=== PATIENT | female | born 1955 | race American Indian/Alaskan Native ===

== ENCOUNTER 2017-06-12 09:00 | Emergency (ER) | payer MEDICARE ==
--- NOTE | 2017-06-12 10:58 | Emergency Department Report ---
ED Shortness of Breath HPI - General Chief Complaint: Dyspnea/Respdistress Stated Complaint: DESIREE Time Seen by Provider: 06/12/17 10:46 Source: patient, EMS Mode of arrival: Stretcher Limitations: No Limitations - History of Present Illness MD Complaint: shortness of breath, cough, chest pain -: Gradual, Last night Severity: moderate Quality: other (chest tightness) Consistency: constant Improves With: other (a breathing treatment and a steroid shot given in the ambulance 1 hour proir to admission) Worsens With: coughing Known History Of: COPD (on 2 L of O2 21/12), other (She is an active smoker) Context: smoke/fume exposure Associated Symptoms: chest pain, cough, sputum production - Related Data Home Oxygen Therapy: Yes Home Oxygen Amount: 2 Liters Home Medications Medication Instructions Recorded Confirmed Last Taken Fluticasone/Salmeterol [Advair 1 inh INHALATION BID 06/14/13 11/28/13 11/28/13 Diskus 500-50 mcg] Prednisone 10 mg PO DAILY 06/14/13 11/29/13 11/29/13 ALBUTEROL NEB's [Proventil 0.083% 3 ml INHALATION QID 10/17/13 11/29/13 11/29/13 NEBS] Diltiazem Cd [Cardizem CD] 1 cap PO DAILY 10/17/13 11/29/13 11/29/13 Mv,Rehan,Min/Iron/Folic Acid/Lut 1 tab PO DAILY 10/17/13 11/28/13 11/28/13 [Complete Multi Tablet] Potassium Gluconate 1 tab PO DAILY 10/17/13 11/29/13 11/28/13 Triamterene/Hydrochlorothiazid 1 tab PO DAILY 10/17/13 11/29/13 11/29/13 [Triamterene-Hctz 37.5-25 mg] amLODIPine [Norvasc] 1 tab PO DAILY 10/17/13 11/29/13 11/29/13 Previous Rx's Medication Instructions Recorded Last Taken Type Ferrous Gluconate [Fergon 325 MG 325 mg PO TID #90 tablet 06/15/13 11/28/13 Rx tab] methylPREDNISolone [Medrol Dose 8 mg PO QAM #1 tab.ds.pk 06/15/13 11/28/13 Rx Golden] ALBUTEROL Inhaler [ProAir HFA 2 puff INHALATION Q4HR PRN #1 inha 07/30/15 Unknown Rx Inhaler] Prednisone [predniSONE 10 mg 10 mg PO .TAPER #1 tab.ds.pk 07/30/15 Unknown Rx (6-Day Pack, 21 Tabs)] Amoxicillin/K Clav Tab [Augmentin 1 tab PO Q12HR 10 Days tab 06/12/17 Unknown Rx 875 mg] Allergies Allergy/AdvReac Type Severity Reaction Status Date / Time No Known Allergies Allergy Verified 11/27/13 14:11 ED Review of Systems ROS: Stated complaint: DESIREE Other details as noted in HPI Constitutional: denies: chills, fever Eyes: denies: eye pain, eye discharge, vision change ENT: denies: ear pain, throat pain Respiratory: see HPI, cough, shortness of breath, wheezing Cardiovascular: chest pain. denies: palpitations, edema Endocrine: no symptoms reported Gastrointestinal: denies: abdominal pain, nausea, diarrhea Genitourinary: denies: urgency, dysuria, discharge Musculoskeletal: denies: back pain, joint swelling, arthralgia Skin: denies: rash, lesions Neurological: denies: headache, weakness, paresthesias Psychiatric: denies: anxiety, depression Hematological/Lymphatic: denies: easy bleeding, easy bruising ED Past Medical Hx - Past Medical History Hx Hypertension: Yes (AMLODIPINE) Hx Congestive Heart Failure: (HX OF PERICARDIAL EFFUSION) Hx GERD: Yes Hx Liver Disease: Yes (Increased Liver enzymes) Hx Renal Disease: No Hx Arthritis: Yes Hx Asthma: Yes Hx COPD: Yes (USES 02 PRN,PREDNISONE,INHALER USE) - Social History Smoking Status: Current Every Day Smoker Substance Use Type: None - Medications Home Medications: Home Medications Medication Instructions Recorded Confirmed Last Taken Type Fluticasone/Salmeterol [Advair 1 inh INHALATION BID 06/14/13 11/28/13 11/28/13 History Diskus 500-50 mcg] Prednisone 10 mg PO DAILY 06/14/13 11/29/13 11/29/13 History Ferrous Gluconate [Fergon 325 MG 325 mg PO TID #90 tablet 06/15/13 11/28/1306/13 Rx tab] methylPREDNISolone [Medrol Dose 8 mg PO QAM #1 tab.ds.pk 06/15/13 11/28/1311/28 Rx Golden] ALBUTEROL NEB's [Proventil 0.083% 3 ml INHALATION QID 10/17/13 11/29/13 History NEBS] Diltiazem Cd [Cardizem CD] 1 cap PO DAILY 10/17/13 11/29/13 11/29/13 History Mv,Rehan,Min/Iron/Folic Acid/Lut 1 tab PO DAILY 10/17/13 11/28/13 11/28/13 History [Complete Multi Tablet] Potassium Gluconate 1 tab PO DAILY 10/17/13 11/29/13 11/28/13 History Triamterene/Hydrochlorothiazid 1 tab PO DAILY 10/17/13 11/29/13 11/29/13 History [Triamterene-Hctz 37.5-25 mg] amLODIPine [Norvasc] 1 tab PO DAILY 10/17/13 11/29/13 11/29/13 History ALBUTEROL Inhaler [ProAir HFA 2 puff INHALATION Q4HR PRN #1 inha 07/30/15 Unknown Rx Inhaler] Prednisone [predniSONE 10 mg 10 mg PO .TAPER #1 tab.ds.pk 07/30/15 Unknown Rx (6-Day Pack, 21 Tabs)] Amoxicillin/K Clav Tab [Augmentin 1 tab PO Q12HR 10 Days tab 06/12/17 Unknown Rx 875 mg] ED Physical Exam - General Limitations: No Limitations General appearance: alert, in no apparent distress - Head Head exam: Present: atraumatic, normocephalic - Eye Eye exam: Present: normal appearance - ENT ENT exam: Present: mucous membranes moist - Neck Neck exam: Present: normal inspection - Respiratory Respiratory exam: Present: wheezes (Diffuse B/L), decreased breath sounds (at bases), prolonged expiratory. Absent: respiratory distress - Cardiovascular Cardiovascular Exam: Present: normal rhythm. Absent: regular rate (mild tachycardia), systolic murmur, diastolic murmur, rubs, gallop - GI/Abdominal GI/Abdominal exam: Present: soft, normal bowel sounds - Extremities Exam Extremities exam: Present: normal inspection - Back Exam Back exam: Present: normal inspection - Neurological Exam Neurological exam: Present: alert, oriented X3 - Psychiatric Psychiatric exam: Present: normal affect, normal mood - Skin Skin exam: Present: warm, dry, intact, normal color. Absent: rash ED Course Vital Signs 06/12/17 06/12/17 06/12/17 10:34 10:46 11:00 Temperature 98.1 F Pulse Rate 108 H 122 H 87 Pulse Rate [ Bilateral Upper Lobe] Respiratory 18 20 23 Rate Respiratory Rate [Bilateral Upper Lobe] Blood Pressure 125/62 113/59 112/56 O2 Sat by Pulse 96 94 93 Oximetry 06/12/17 06/12/17 11:27 11:33 Temperature Pulse Rate Pulse Rate [ 94 H 95 H Bilateral Upper Lobe] Respiratory Rate Respiratory 20 20 Rate [Bilateral Upper Lobe] Blood Pressure O2 Sat by Pulse Oximetry - Reevaluation(s) Reevaluation #1: 06/12/17 11:53 Reports improvement on breathing treatment. I informed her that I will prescribe Levaquin but she requested a meal and an AB that has Amoxicillin in it. Critical care attestation.: If time is entered above; I have spent that time in minutes in the direct care of this critically ill patient, excluding procedure time. ED Disposition Clinical Impression: COPD exacerbation Disposition: DC-01 TO HOME OR SELFCARE Is pt being admited?: No Does the pt Need Aspirin: No Condition: Good Instructions: Chronic Obstructive Pulmonary Disease (ED) Additional Instructions: Smoking Cessation Prescriptions: Amoxicillin/K Clav Tab [Augmentin 875 mg] 1 tab PO Q12HR 10 Days tab Referrals: HILARIO SALMON MD [Primary Care Provider] - 3-5 Days Time of Disposition: 11:58
[2017-06-12] MEDS ORDERED: PROVENTIL IH ONE (11:13)
[2017-06-12] MEDS ORDERED: ATROVENT IH ONE (11:13)
--- NOTE | 2017-06-12 11:50 | XRay Report ---
AP CHEST :06/12/17 09:00:00 CLINICAL: Difficulty breathing. COMPARISON:07/30/15 FINDINGS: Normal heart and pulmonary vasculature. The lungs are normally expanded and clear. The bones and soft tissues are normal. IMPRESSION: Normal chest.
[2017-06-12 12:36] VITALS: BP 117/62
== END 2017-06-12 13:16 | disposition home or self-care (01) ==
LOC: ED 09:00
DX: J44.1 Chronic obstructive pulmonary disease with (acute) exacerbation (principal); I10 Essential (primary) hypertension; K21.9 Gastro-esophageal reflux disease without esophagitis; M19.90 Unspecified osteoarthritis, unspecified site; F17.200 Nicotine dependence, unspecified, uncomplicated
CPT/HCPCS: 71045; 94640; 99284

== ENCOUNTER 2018-07-26 19:09 | Inpatient (IN) | payer MEDICARE ==
[2018-07-26] MEDS ORDERED: PROVENTIL IH ONE ×2 (19:31→20:38)
[2018-07-26] MEDS ORDERED: ADRENALINE P/F SUB-Q ONE (19:31)
[2018-07-26] MEDS ORDERED: ATROVENT IH ONE ×2 (19:31→20:38)
[2018-07-26] MEDS ORDERED: MAGNESIUM SULFATE 2GM/50ML 2 GM/50 ML BAG IV ONE (19:31)
[2018-07-26] MEDS ORDERED: NACL 0.9% 500 ML 500 ML IV ONE ×2 (19:31→20:36)
--- NOTE | 2018-07-26 19:33 | Emergency Department Report ---
ED Shortness of Breath HPI - General Chief Complaint: Dyspnea/Respdistress Stated Complaint: DIFFICULTY BREATHING Time Seen by Provider: 07/26/18 19:24 Source: EMS (ems notes not available at time of chart dictation) Mode of arrival: Stretcher Limitations: Physical Limitation - History of Present Illness Initial Comments: This is a 63-year-old female. Past medical history includes tobacco dependency, chronic hypoxic respiratory failure, end-stage COPD, hypertension, on 2 L of home oxygen. The patient is brought to the hospital by EMS for shortness of breath. Apparently, EMS given albuterol, Atrovent, steroids, magnesium and IV diuretics in the field. Upon arrival to the ER, the patient had markedly labored breathing. She indicated central chest wall pain. She denied DVT, pulmonary embolus risk factors. She was given additional albuterol, Atrovent, magnesium, fluids, BiPAP, and subcutaneous epinephrine, which moderately improved her work of breathing. She denied hematemesis, bright red blood per rectum. Of note, patient was admitted to the medical service in May 2018, for similar presentation, was found to have a negative CT scan of the chest for pulmonary embolus, and progressive lung disease. MD Complaint: shortness of breath, cough, chest pain, "asthma attack" -: Gradual, hour(s) Severity: moderate Quality: aching Consistency: constant Improves With: oxygen, rest, bronchodilators, upright position Worsens With: lying flat, exertion Known History Of: COPD - Related Data Home Medications Medication Instructions Recorded Confirmed Last Taken ALBUTEROL NEB's [Proventil 0.083% 3 ml INHALATION QID 10/17/13 06/18/17 06/14/17 NEBS] Mv,Rehan,Min/Iron/Folic Acid/Lut 1 tab PO DAILY 10/17/13 06/18/17 06/01/17 [Complete Multi Tablet] Previous Rx's Medication Instructions Recorded Last Taken Type Ferrous Gluconate [Fergon 325 MG 325 mg PO TID #90 tablet 06/15/13 06/01/17 Rx tab] ALBUTEROL Inhaler (OR & NICU) 2 puff INHALATION Q4HR PRN #1 inha 06/17/17 Unknown Rx [ProAir HFA Inhaler] ALPRAZolam [Xanax TAB] 0.25 mg PO Q12HR PRN #30 day 06/17/17 Unknown Rx Acetaminophen [Acetaminophen TAB] 650 mg PO Q6H PRN #30 tablet 06/17/17 Unknown Rx Arformoterol Nebu [Brovana Nebu] 15 mcg IH Q12HRT #30 day 06/17/17 Unknown Rx Budesonide [Pulmicort Respules] 0.5 mg IH Q12HRT #30 day 06/17/17 Unknown Rx Ipratropium/Albuterol Sulfate 1 ampul IH Q4HRT PRN #30 day 06/17/17 Unknown Rx [DUONEB *Not for PRN Use*] Montelukast [Singulair] 10 mg PO QHS #30 tablet 06/17/17 Unknown Rx Nicotine [Habitrol] 21 mg TD Q24H #14 patch 06/17/17 Unknown Rx Oseltamivir [Tamiflu] 75 mg PO BID #2 day 06/17/17 Unknown Rx Polyethylene Glycol 3350 [Miralax 17 gm PO QDAY PRN #15 day 06/17/17 Unknown Rx 3350] buPROPion XL [Wellbutrin XL] 150 mg PO QDAY #30 day 06/17/17 Unknown Rx levoFLOXacin [Levaquin TAB] 750 mg PO DAILY #3 day 06/17/17 Unknown Rx oxyCODONE /ACETAMINOPHEN [Percocet 1 tab PO Q6H PRN #20 tablet 06/17/17 Unknown Rx 5/325 mg] predniSONE [Deltasone] 1 dose PO DAILY #16 day 06/17/17 Unknown Rx ALBUTEROL NEB's [Proventil 0.083% 2.5 mg IH Q4HRT PRN #30 day 06/18/17 Unknown Rx NEBS] Metoprolol Xl [Metoprolol 25 mg PO QDAY #30 tablet 06/18/17 Unknown Rx SUCCINATE ER TAB] Nystatin [Nystatin SUSP] 5 ml PO QID #14 day 06/18/17 Unknown Rx dilTIAZem CD [Cardizem CD] 120 mg PO QDAY #30 capsule 06/18/17 Unknown Rx Allergies Allergy/AdvReac Type Severity Reaction Status Date / Time No Known Allergies Allergy Verified 11/27/13 14:11 ED Review of Systems ROS: Stated complaint: DIFFICULTY BREATHING Other details as noted in HPI Constitutional: malaise, weakness. denies: fever Eyes: denies: eye discharge ENT: congestion Respiratory: cough, shortness of breath, wheezing Cardiovascular: chest pain Gastrointestinal: denies: abdominal pain, hematemesis, melena Genitourinary: denies: dysuria Musculoskeletal: arthralgia Skin: denies: lesions Neurological: weakness Psychiatric: anxiety ED Past Medical Hx - Past Medical History Previous Medical History?: Yes Hx Hypertension: Yes Hx Congestive Heart Failure: Yes Hx GERD: Yes Hx Liver Disease: Yes (Increased Liver enzymes) Hx Renal Disease: No Hx Arthritis: Yes Hx Asthma: Yes Hx COPD: Yes - Surgical History Past Surgical History?: No - Social History Smoking Status: Former Smoker Substance Use Type: Alcohol - Medications Home Medications: Home Medications Medication Instructions Recorded Confirmed Last Taken Type Ferrous Gluconate [Fergon 325 MG 325 mg PO TID #90 tablet 06/15/13 06/18/17 06/01/17 Rx tab] ALBUTEROL NEB's [Proventil 0.083% 3 ml INHALATION QID 10/17/13 06/18/17 06/14/17 History NEBS] Mv,Rehan,Min/Iron/Folic Acid/Lut 1 tab PO DAILY 10/17/13 06/18/17 06/01/17 History [Complete Multi Tablet] ALBUTEROL Inhaler (OR & NICU) 2 puff INHALATION Q4HR PRN #1 inha 06/17/17 Unknown Rx [ProAir HFA Inhaler] ALPRAZolam [Xanax TAB] 0.25 mg PO Q12HR PRN #30 day 06/17/17 Unknown Rx Acetaminophen [Acetaminophen TAB] 650 mg PO Q6H PRN #30 tablet 06/17/17 Unknown Rx Arformoterol Nebu [Brovana Nebu] 15 mcg IH Q12HRT #30 day 06/17/17 Unknown Rx Budesonide [Pulmicort Respules] 0.5 mg IH Q12HRT #30 day 06/17/17 Unknown Rx Ipratropium/Albuterol Sulfate 1 ampul IH Q4HRT PRN #30 day 06/17/17 Unknown Rx [DUONEB *Not for PRN Use*] Montelukast [Singulair] 10 mg PO QHS #30 tablet 06/17/17 Unknown Rx Nicotine [Habitrol] 21 mg TD Q24H #14 patch 06/17/17 Unknown Rx Oseltamivir [Tamiflu] 75 mg PO BID #2 day 06/17/17 Unknown Rx Polyethylene Glycol 3350 [Miralax 17 gm PO QDAY PRN #15 day 06/17/17 Unknown Rx 3350] buPROPion XL [Wellbutrin XL] 150 mg PO QDAY #30 day 06/17/17 Unknown Rx levoFLOXacin [Levaquin TAB] 750 mg PO DAILY #3 day 06/17/17 Unknown Rx oxyCODONE /ACETAMINOPHEN [Percocet 1 tab PO Q6H PRN #20 tablet 06/17/17 Unknown Rx 5/325 mg] predniSONE [Deltasone] 1 dose PO DAILY #16 day 06/17/17 Unknown Rx ALBUTEROL NEB's [Proventil 0.083% 2.5 mg IH Q4HRT PRN #30 day 06/18/17 Unknown Rx NEBS] Metoprolol Xl [Metoprolol 25 mg PO QDAY #30 tablet 06/18/17 Unknown Rx SUCCINATE ER TAB] Nystatin [Nystatin SUSP] 5 ml PO QID #14 day 06/18/17 Unknown Rx dilTIAZem CD [Cardizem CD] 120 mg PO QDAY #30 capsule 06/18/17 Unknown Rx ED Physical Exam - General Limitations: Physical Limitation General appearance: alert, anxious, in distress, obese - Head Head exam: Present: atraumatic, normocephalic - Eye Eye exam: Present: normal appearance, EOMI. Absent: nystagmus - ENT ENT exam: Present: normal exam, normal orophraynx, mucous membranes moist, normal external ear exam - Neck Neck exam: Present: normal inspection, full ROM. Absent: tenderness, meningismus - Respiratory Respiratory exam: Present: respiratory distress, wheezes, rhonchi, chest wall tenderness - Cardiovascular Cardiovascular Exam: Present: normal rhythm, tachycardia, normal heart sounds. Absent: systolic murmur, diastolic murmur, rubs, gallop - GI/Abdominal GI/Abdominal exam: Present: soft. Absent: distended, tenderness, guarding, rebound, rigid, pulsatile mass - Extremities Exam Extremities exam: Present: normal inspection, full ROM, other (2+ pulses noted in the bilateral upper, lower extremities. Compartments soft. No long bony tenderness. The pelvis is stable.). Absent: pedal edema, joint swelling, calf tenderness - Back Exam Back exam: Present: normal inspection, full ROM. Absent: tenderness, CVA tenderness (R), paraspinal tenderness, vertebral tenderness - Neurological Exam Neurological exam: Present: alert, other (Extraocular movements intact. Tongue midline. No facial droop. Facial sensation intact to light touch in the V1, V2, V3 distribution bilaterally. 5 and 5 strength in 4 extremities.. Sensation is intact to light touch in 4 extremities.). Absent: motor sensory deficit - Psychiatric Psychiatric exam: Present: anxious - Skin Skin exam: Present: warm, dry, intact, normal color. Absent: rash ED Course Vital Signs 07/26/18 07/26/18 07/26/18 19:21 19:30 19:35 Temperature 98.6 F Pulse Rate 99 H 102 H Pulse Rate [ 102 H Anterior Bilateral Throughout] Respiratory 20 25 H Rate Respiratory 25 H Rate [Anterior Bilateral Throughout] Blood Pressure 174/85 Blood Pressure 174/85 [Right] O2 Sat by Pulse 100 95 Oximetry 07/26/18 07/26/18 07/26/18 20:40 20:45 20:58 Temperature Pulse Rate 91 H Pulse Rate [ 90 91 H Anterior Bilateral Throughout] Respiratory 21 Rate Respiratory 21 21 Rate [Anterior Bilateral Throughout] Blood Pressure Blood Pressure [Right] O2 Sat by Pulse 100 Oximetry 07/26/18 21:29 Temperature Pulse Rate Pulse Rate [ 91 H Anterior Bilateral Throughout] Respiratory Rate Respiratory 21 Rate [Anterior Bilateral Throughout] Blood Pressure Blood Pressure [Right] O2 Sat by Pulse Oximetry - Reevaluation(s) Reevaluation #1: 07/26/18 22:55 Work of breathing improved. CT scan of the chest suggests pneumonia. Patient has white count of 14, heart rate greater than 90, respiratory acidosis with hypercarbic retention, suggestive of systemic inflammatory response syndrome, sepsis, although not septic shock. Work of breathing improved on BiPAP therapy. Additional IV fluids, blood cultures, lactic acid, Levaquin antibiotic ordered. The Hospital physician, Dr. Mcdaniel to admit the patient to the medical service. ED Medical Decision Making - Lab Data Result diagrams: 07/26/18 19:41 07/26/18 19:41 Vital Signs 07/26/18 19:21 Temperature 98.6 F Pulse Rate 99 H Respiratory 20 Rate Blood Pressure 174/85 Blood Pressure 174/85 [Right] O2 Sat by Pulse 100 Oximetry Lab Results 07/26/18 07/26/18 07/26/18 Range/Units 19:41 19:41 19:41 WBC 13.0 H (4.5-11.0) K/mm3 RBC 4.24 (3.65-5.03) M/mm3 Hgb 12.2 (10.1-14.3) gm/dl Hct 37.2 (30.3-42.9) % MCV 88 (79-97) fl MCH 29 (28-32) pg MCHC 33 (30-34) % RDW 15.1 (13.2-15.2) % Plt Count 242 (140-440) K/mm3 Lymph % (Auto) 7.5 L (13.4-35.0) % Edgar % (Auto) 6.5 (0.0-7.3) % Eos % (Auto) 0.1 (0.0-4.3) % Baso % (Auto) 0.4 (0.0-1.8) % Lymph # 1.0 L (1.2-5.4) K/mm3 Edgar # 0.8 (0.0-0.8) K/mm3 Eos # 0.0 (0.0-0.4) K/mm3 Baso # 0.0 (0.0-0.1) K/mm3 Seg Neutrophils % 85.5 H (40.0-70.0) % Seg Neutrophils # 11.1 H (1.8-7.7) K/mm3 D-Dimer 290.28 H (0-234) ng/mlDDU Sodium 139 (137-145) mmol/L Potassium 4.7 (3.6-5.0) mmol/L Chloride 91.9 L (98-107) mmol/L Carbon Dioxide 35 H (22-30) mmol/L Anion Gap 17 mmol/L BUN 23 H (7-17) mg/dL Creatinine 1.1 (0.7-1.2) mg/dL Estimated GFR > 60 ml/min BUN/Creatinine Ratio 21 % Glucose 179 H (65-100) mg/dL Calcium 10.3 H (8.4-10.2) mg/dL Magnesium 2.90 H (1.7-2.3) mg/dL Total Creatine Kinase 134 (30-135) units/L Troponin T < 0.010 (0.00-0.029) ng/mL - EKG Data -: EKG Interpreted by Me Rate: tachycardia - EKG Data 07/26/18 20:43 Sinus tachycardia, 100 bpm, right bundle branch block, QTC 423 ms, OR interval within normal limits, limited by motion artifact, appears unchanged from prior EKG from 06/17/2017. - Radiology Data Radiology results: pending - Medical Decision Making Differential diagnosis, including not limited to: COPD exacerbation, pneumonia, costochondritis, acute coronary syndrome, pulmonary embolus Assessment and plan: 63-year-old female with chronic hypoxic respiratory failure, with evidence of mild hypercarbic respiratory failure, requiring BiPAP therapy, subcutaneous epinephrine, multiple rounds of albuterol, Atrovent, magnesium, doubt pulmonary embolus given history, but given positive d-dimer, we will obtain CT scan of the chest to exclude pulmonary embolus. Patient will be admitted to the medical service once her initial diagnostics have resulted. Critical Care Time: Yes Critical care time in (mins) excluding proc time.: 35 Critical care attestation.: If time is entered above; I have spent that time in minutes in the direct care of this critically ill patient, excluding procedure time. ED Disposition Clinical Impression: COPD exacerbation, Acute and chronic respiratory failure, SIRS (systemic inflammatory response syndrome) Disposition: 09 OP ADMIT IP TO THIS HOSP Is pt being admited?: Yes Condition: Good Instructions: Chronic Obstructive Pulmonary Disease (ED) Referrals: DAHIANA ANGUIANO [Other] - 3-5 Days
[2018-07-26 19:54] LABS: Basophils % (Auto) 0.4 % (0.0-1.8); Eosinophils % (Auto) 0.1 % (0.0-4.3); Hematocrit 37.2 % (30.3-42.9); Hemoglobin 12.2 gm/dl (10.1-14.3); Lymphocytes % (Auto) 7.5 % (13.4-35.0); Mean Corpuscular HGB Conc 33 % (30-34); Mean Corpuscular Volume 88 fl (79-97); Monocytes # (Auto) 0.8 K/mm3 (0.0-0.8); Monocytes % (Auto) 6.5 % (0.0-7.3); Platelet Count 242 K/mm3 (140-440); Red Blood Count 4.24 M/mm3 (3.65-5.03); Red Cell Distribution Width 15.1 % (13.2-15.2)
[2018-07-26 20:27] LABS: BUN/Creatinine Ratio 21; Blood Urea Nitrogen 23 mg/dL (7-17); Calcium 10.3 mg/dL (8.4-10.2); Hemolysis Index 29
[2018-07-26] MEDS ORDERED: SUBLIMAZE IV ONE (20:38)
--- NOTE | 2018-07-26 21:10 | XRay Report ---
FINAL REPORT EXAM: XR CHEST 1V AP HISTORY: dyspnea TECHNIQUE: AP portable view of the chest. PRIORS: 06/13/2017 FINDINGS: The cardiomediastinal silhouette appears normal. The lungs are clear. The bones and soft tissues are unremarkable. IMPRESSION: No evidence of acute cardiopulmonary disease.
--- NOTE | 2018-07-26 22:33 | Cat Scan Report ---
FINAL REPORT EXAM: CT ANGIO CHEST HISTORY: cp dyspnea copd TECHNIQUE: High-resolution helical axial images were obtained of the chest during intravenous admini stration of iodinated contrast. Images are reconstructed in the sagittal and coronal planes. PRIORS: 06/03/2017 FINDINGS: There is no evidence of pulmonary embolism, the pulmonary arteries opacify normally. The heart and thoracic aorta appear normal. There is a patchy right upper lobe reticulonodular infiltrate Images through the upper abdomen are show a stable 1.8 cm enhancing lesion in the peripheral liver mo st consistent with a hemangioma. The bones are unremarkable. IMPRESSION: 1. No evidence of pulmonary embolism. 2. Patchy right upper lobe reticulonodular infiltrate consistent with pneumonia
[2018-07-26] MEDS ORDERED: NACL 0.9% 1000 ML IV ONE (22:54)
[2018-07-26] MEDS ORDERED: LEVAQUIN 750MG/150ML 750 MG/150 ML BAG IV ONE (23:00)
[2018-07-26] MEDS ORDERED: NACL 0.9% 1000 ML 1,000 ML IV SCH (23:45)
[2018-07-26] MEDS ORDERED: TYLENOL PO PRN (23:46)
[2018-07-26] MEDS ORDERED: NORCO 5/325 PO PRN (23:46)
[2018-07-26] MEDS ORDERED: ZOFRAN IV PRN (23:46)
[2018-07-27] MEDS: SOLU-Medrol IV SCH ×4 (00:56→20:45)
[2018-07-27] MEDS ORDERED: NACL 0.9% 1000 ML 2,000 ML ONE (00:56)
[2018-07-27] MEDS ORDERED: LEVAQUIN 750MG/150ML 750 MG/150 ML BAG IV ONE (00:56)
[2018-07-27] MEDS ORDERED: SOLU-Medrol ONE (00:59)
--- NOTE | 2018-07-27 01:04 | History and Physical Report ---
History of Present Illness Date of examination: 07/26/18 Date of admission: 07/26/18 23:46 Chief complaint: "I couldn't breathe" History of present illness: Patient is a 63-year-old -[place] female with history of asthma and COPD who presented to the ED on account of 1 day history of worsening shortness of breath. She has associated dry cough, pleuritic chest pain, diaphoresis, runny nose, headaches and lightheadedness. She denies palpitations, sore throat, fever, chills, leg swelling, orthopnea or PND. No abdominal pain, constipation, diarrhea, bleeding from any orifice, dysuria or frequency. No syncope or loss of consciousness. No reported ill contact. On arrival to the ED, patient was in respiratory distress and had to be placed on BiPAP. Past History Past Medical History: COPD, hypertension, other (asthma) Past Surgical History: No surgical history Social history: smoking (she has 30 years history of cigarette smoking. She currently smokes about 5 sticks of cigarettes per day. She admits to occasional alcohol and marijuana use but denies other illicit or IV drug use) Family history: other (reviewed and noncontributory) Medications and Allergies Allergies Allergy/AdvReac Type Severity Reaction Status Date / Time No Known Allergies Allergy Verified 11/27/13 14:11 Home Medications Medication Instructions Recorded Confirmed Last Taken Type Ferrous Gluconate [Fergon 325 MG 325 mg PO TID #90 tablet 06/15/13 06/18/17 06/01/17 Rx tab] ALBUTEROL NEB's [Proventil 0.083% 3 ml INHALATION QID 10/17/13 06/18/17 06/14/17 History NEBS] Mv,Rehan,Min/Iron/Folic Acid/Lut 1 tab PO DAILY 10/17/13 06/18/17 06/01/17 History [Complete Multi Tablet] ALBUTEROL Inhaler (OR & NICU) 2 puff INHALATION Q4HR PRN #1 inha 06/17/17 Unknown Rx [ProAir HFA Inhaler] ALPRAZolam [Xanax TAB] 0.25 mg PO Q12HR PRN #30 day 06/17/17 Unknown Rx Acetaminophen [Acetaminophen TAB] 650 mg PO Q6H PRN #30 tablet 06/17/17 Unknown Rx Arformoterol Nebu [Brovana Nebu] 15 mcg IH Q12HRT #30 day 06/17/17 Unknown Rx Budesonide [Pulmicort Respules] 0.5 mg IH Q12HRT #30 day 06/17/17 Unknown Rx Ipratropium/Albuterol Sulfate 1 ampul IH Q4HRT PRN #30 day 06/17/17 Unknown Rx [DUONEB *Not for PRN Use*] Montelukast [Singulair] 10 mg PO QHS #30 tablet 06/17/17 Unknown Rx Nicotine [Habitrol] 21 mg TD Q24H #14 patch 06/17/17 Unknown Rx Oseltamivir [Tamiflu] 75 mg PO BID #2 day 06/17/17 Unknown Rx Polyethylene Glycol 3350 [Miralax 17 gm PO QDAY PRN #15 day 06/17/17 Unknown Rx 3350] buPROPion XL [Wellbutrin XL] 150 mg PO QDAY #30 day 06/17/17 Unknown Rx levoFLOXacin [Levaquin TAB] 750 mg PO DAILY #3 day 06/17/17 Unknown Rx oxyCODONE /ACETAMINOPHEN [Percocet 1 tab PO Q6H PRN #20 tablet 06/17/17 Unknown Rx 5/325 mg] predniSONE [Deltasone] 1 dose PO DAILY #16 day 06/17/17 Unknown Rx ALBUTEROL NEB's [Proventil 0.083% 2.5 mg IH Q4HRT PRN #30 day 06/18/17 Unknown Rx NEBS] Metoprolol Xl [Metoprolol 25 mg PO QDAY #30 tablet 06/18/17 Unknown Rx SUCCINATE ER TAB] Nystatin [Nystatin SUSP] 5 ml PO QID #14 day 06/18/17 Unknown Rx dilTIAZem CD [Cardizem CD] 120 mg PO QDAY #30 capsule 06/18/17 Unknown Rx Active Meds: Active Medications Acetaminophen (Tylenol) 650 mg PO Q4H PRN PRN Reason: Pain MILD(1-3)/Fever >100.5/NAVARRO Acetaminophen/Hydrocodone Bitart ([place] 5/325) 1 each PO Q6H PRN PRN Reason: Pain, Moderate (4-6) Albuterol/Ipratropium (Duoneb *Not For Prn Use*) 1 ampul IH Q4HRT [facility] Enoxaparin Sodium (Lovenox) 40 mg SUB-Q QDAY [facility] Levofloxacin/Dextrose (Levaquin 750mg/150ml) 750 mg in 150 mls @ 100 mls/hr IV Q24HR [facility]; Protocol Sodium Chloride (Nacl 0.9% 1000 Ml) 1,000 mls @ 100 mls/hr IV DIRECT [facility] Methylprednisolone Sodium Succinate (Solu-Medrol) 125 mg IV Q6H [facility] Last Admin: 07/27/18 00:56 Dose: 125 mg Documented by: Morphine Sulfate (Morphine) 2 mg IV Q4H PRN PRN Reason: Pain, Moderate (4-6) Nicotine (Habitrol) 7 mg TD QDAY [facility] Ondansetron HCl (Zofran) 4 mg IV Q8H PRN PRN Reason: Nausea And Vomiting Sodium Chloride (Sodium Chloride Flush Syringe 10 Ml) 10 ml IV BID [facility] Sodium Chloride (Sodium Chloride Flush Syringe 10 Ml) 10 ml IV PRN PRN PRN Reason: LINE FLUSH Review of Systems All systems: negative (except as documented in the HPI, all other systems were reviewed and negative) Exam - Constitutional Vitals: Temp Pulse Resp BP Pulse Ox 98.6 F 96 H 24 134/83 97 07/26/18 19:21 07/27/18 00:31 07/27/18 00:31 07/27/18 00:31 07/27/18 00:31 General appearance: Present: no acute distress, other (on BiPAP) - EENT Eyes: Present: PERRL, EOM intact ENT: hearing intact, clear oral mucosa - Neck Neck: Present: supple, normal ROM - Respiratory Respiratory effort: normal Respiratory: bilateral: diminished - Cardiovascular Rhythm: regular Heart Sounds: Present: S1 & S2. Absent: rub, click - Extremities Extremities: No edema Peripheral Pulses: within normal limits - Abdominal General gastrointestinal: Present: soft, non-tender, non-distended, normal bowel sounds Female genitourinary: Present: deferred - Integumentary Integumentary: Present: clear, warm, dry - Musculoskeletal Musculoskeletal: gait normal, strength equal bilaterally - Psychiatric Psychiatric: appropriate mood/affect, intact judgment & insight - Neurologic Neurologic: CNII-XII intact, moves all extremities Results - Labs CBC & Chem 7: 07/26/18 19:41 07/26/18 19:41 Labs: Laboratory Last Values WBC 13.0 K/mm3 (4.5-11.0) H 07/26/18 19:41 RBC 4.24 M/mm3 (3.65-5.03) 07/26/18 19:41 Hgb 12.2 gm/dl (10.1-14.3) 07/26/18 19:41 Hct 37.2 % (30.3-42.9) 07/26/18 19:41 MCV 88 fl (79-97) 07/26/18 19:41 MCH 29 pg (28-32) 07/26/18 19:41 MCHC 33 % (30-34) 07/26/18 19:41 RDW 15.1 % (13.2-15.2) 07/26/18 19:41 Plt Count 242 K/mm3 (140-440) 07/26/18 19:41 Lymph % (Auto) 7.5 % (13.4-35.0) L 07/26/18 19:41 [place] % (Auto) 6.5 % (0.0-7.3) 07/26/18 19:41 Eos % (Auto) 0.1 % (0.0-4.3) 07/26/18 19:41 Baso % (Auto) 0.4 % (0.0-1.8) 07/26/18 19:41 Lymph # 1.0 K/mm3 (1.2-5.4) L 07/26/18 19:41 [place] # 0.8 K/mm3 (0.0-0.8) 07/26/18 19:41 Eos # 0.0 K/mm3 (0.0-0.4) 07/26/18 19:41 Baso # 0.0 K/mm3 (0.0-0.1) 07/26/18 19:41 Seg Neutrophils % 85.5 % (40.0-70.0) H 07/26/18 19: Seg Neutrophils # 11.1 K/mm3 (1.8-7.7) H 07/26/18 19:41 D-Dimer 290.28 ng/mlDDU (0-234) H 07/26/18 19:41 POC ABG pH 7.257 (7.35-7.45) L 07/26/18 23:24 POC ABG pCO2 78.4 (35-45) H 07/26/18 23:24 POC ABG pO2 52 (80-105) L 07/26/18 23:24 POC ABG HCO3 34.9 07/26/18 23:24 POC ABG Total CO2 37 07/26/18 23:24 POC ABG O2 Sat 79 07/26/18 23:24 POC ABG Base Excess 8 07/26/18 23:24 FiO2 32 % 07/26/18 23:24 Sodium 139 mmol/L (137-145) 07/26/18 19:41 Potassium 4.7 mmol/L (3.6-5.0) 07/26/18 19:41 Chloride 91.9 mmol/L (98-107) L 07/26/18 19:41 Carbon Dioxide 35 mmol/L (22-30) H 07/26/18 19:41 Anion Gap 17 mmol/L 07/26/18 19:41 BUN 23 mg/dL (7-17) H 07/26/18 19:41 Creatinine 1.1 mg/dL (0.7-1.2) 07/26/18 19:41 Estimated GFR > 60 ml/min 07/26/18 19:41 BUN/Creatinine Ratio 21 % 07/26/18 19:41 Glucose 179 mg/dL (65-100) H 07/26/18 19:41 Calcium 10.3 mg/dL (8.4-10.2) H 07/26/18 19:41 Magnesium 2.90 mg/dL (1.7-2.3) H 07/26/18 19:41 Total Creatine Kinase 134 units/L (30-135) 07/26/18 19:41 Troponin T < 0.010 ng/mL (0.00-0.029) 07/26/18 19:41 - Imaging and Cardiology Chest x-ray: report reviewed CT scan - chest: report reviewed Assessment and Plan Assessment and plan: Sepsis secondary to pneumonia(CAP) -Sepsis protocol -On IV antibiotic with levofloxacin -Blood and sputum cultures pending Acute COPD/asthma exacerbation -On IV steroid, duonebs and antibiotic Acute on chronic respiratory failure with hypoxia and hypercapnia -Continue BiPAP -Monitor with ABG Elevated d-dimer -CTA chest negative for PE Hyperglycemia -We will check hemoglobin A1c level Uncontrolled hypertension -On antihypertensive, will monitor Hypercalcemia/Hypermagnesemia -On IV fluid, will monitor levels DVT prophylaxis with Lovenox Disposition: Patient will be placed on inpatient status. Discharge will depend on clinical course. Time spent: 40 minutes
[2018-07-27] MEDS: DUONEB *Not for PRN Use IH SCH ×7 (01:31→23:20)
[2018-07-27 03:47] LABS: Alanine Aminotransferase 25 units/L (7-56); Albumin 4.6 g/dL (3.9-5); BUN/Creatinine Ratio 20; Blood Urea Nitrogen 22 mg/dL (7-17); Calcium 9.7 mg/dL (8.4-10.2); Hemolysis Index 2
[2018-07-27] MEDS ORDERED: MUCINEX ER PO SCH (10:00)
[2018-07-27] MEDS: LOVENOX SUB-Q SCH (11:00)
[2018-07-27] MEDS: SODIUM CHLORIDE FLUSH SYRINGE 10 ML IV SCH ×2 (11:00→22:42)
[2018-07-27] MEDS: LEVAQUIN 750MG/150ML 750 MG/150 ML BAG IV SCH (11:01)
[2018-07-27] MEDS: HABITROL TD SCH (11:01)
--- NOTE | 2018-07-27 12:50 | Consultation ---
History of Present Illness Consult date: 07/27/18 Requesting physician: SHEA JIMENEZ Reason for consult: COPD History of present illness: 63 y/o smoker, admitted with acute on chronic respiratory failure thought secondary to COPD exacrbation Past History Past Medical History: COPD, hypertension, other (asthma) Past Surgical History: No surgical history Social history: smoking (she has 30 years history of cigarette smoking. She currently smokes about 5 sticks of cigarettes per day. She admits to occasional alcohol and marijuana use but denies other illicit or IV drug use) Family history: other (reviewed and noncontributory) Medications and Allergies Allergies Allergy/AdvReac Type Severity Reaction Status Date / Time No Known Allergies Allergy Verified 11/27/13 14:11 Home Medications Medication Instructions Recorded Confirmed Last Taken Type Ferrous Gluconate [Fergon 325 MG 325 mg PO TID #90 tablet 06/15/13 06/18/17 06/01/17 Rx tab] ALBUTEROL NEB's [Proventil 0.083% 3 ml INHALATION QID 10/17/13 06/18/17 06/14/17 History NEBS] Mv,Rehan,Min/Iron/Folic Acid/Lut 1 tab PO DAILY 10/17/13 06/18/17 06/01/17 History [Complete Multi Tablet] ALBUTEROL Inhaler (OR & NICU) 2 puff INHALATION Q4HR PRN #1 inha 06/17/17 Unknown Rx [ProAir HFA Inhaler] ALPRAZolam [Xanax TAB] 0.25 mg PO Q12HR PRN #30 day 06/17/17 Unknown Rx Acetaminophen [Acetaminophen TAB] 650 mg PO Q6H PRN #30 tablet 06/17/17 Unknown Rx Arformoterol Nebu [Brovana Nebu] 15 mcg IH Q12HRT #30 day 06/17/17 Unknown Rx Budesonide [Pulmicort Respules] 0.5 mg IH Q12HRT #30 day 06/17/17 Unknown Rx Ipratropium/Albuterol Sulfate 1 ampul IH Q4HRT PRN #30 day 06/17/17 Unknown Rx [DUONEB *Not for PRN Use*] Montelukast [Singulair] 10 mg PO QHS #30 tablet 06/17/17 Unknown Rx Nicotine [Habitrol] 21 mg TD Q24H #14 patch 06/17/17 Unknown Rx Oseltamivir [Tamiflu] 75 mg PO BID #2 day 06/17/17 Unknown Rx Polyethylene Glycol 3350 [Miralax 17 gm PO QDAY PRN #15 day 06/17/17 Unknown Rx 3350] buPROPion XL [Wellbutrin XL] 150 mg PO QDAY #30 day 06/17/17 Unknown Rx levoFLOXacin [Levaquin TAB] 750 mg PO DAILY #3 day 06/17/17 Unknown Rx oxyCODONE /ACETAMINOPHEN [Percocet 1 tab PO Q6H PRN #20 tablet 06/17/17 Unknown Rx 5/325 mg] predniSONE [Deltasone] 1 dose PO DAILY #16 day 06/17/17 Unknown Rx ALBUTEROL NEB's [Proventil 0.083% 2.5 mg IH Q4HRT PRN #30 day 06/18/17 Unknown Rx NEBS] Metoprolol Xl [Metoprolol 25 mg PO QDAY #30 tablet 06/18/17 Unknown Rx SUCCINATE ER TAB] Nystatin [Nystatin SUSP] 5 ml PO QID #14 day 06/18/17 Unknown Rx dilTIAZem CD [Cardizem CD] 120 mg PO QDAY #30 capsule 06/18/17 Unknown Rx Active Meds: Active Medications Acetaminophen (Tylenol) 650 mg PO Q4H PRN PRN Reason: Pain MILD(1-3)/Fever >100.5/NAVARRO Acetaminophen/Hydrocodone Bitart ([place] 5/325) 1 each PO Q6H PRN PRN Reason: Pain, Moderate (4-6) Last Admin: 07/27/18 02:53 Dose: 1 each Documented by: Albuterol/Ipratropium (Duoneb *Not For Prn Use*) 1 ampul IH Q4HRT [facility] Last Admin: 07/27/18 08:56 Dose: 1 ampul Documented by: Arformoterol Tartrate (Brovana Nebu) 15 mcg IH Q12HRT [facility] Budesonide (Pulmicort) 0.5 mg IH Q12HRT [facility] Diltiazem HCl (Cardizem Cd) 120 mg PO QDAY [facility] Enoxaparin Sodium (Lovenox) 40 mg SUB-Q QDAY [facility] Last Admin: 07/27/18 11:00 Dose: 40 mg Documented by: Guaifenesin (Mucinex Er) 600 mg PO BID [facility] Last Admin: 07/27/18 11:00 Dose: 600 mg Documented by: Levofloxacin/Dextrose (Levaquin 750mg/150ml) 750 mg in 150 mls @ 100 mls/hr IV Q24HR [facility]; Protocol Last Admin: 07/27/18 11:01 Dose: 100 mls/hr Documented by: Methylprednisolone Sodium Succinate (Solu-Medrol) 60 mg IV Q6H [facility] Morphine Sulfate (Morphine) 2 mg IV Q4H PRN PRN Reason: Pain, Moderate (4-6) Nicotine (Habitrol) 7 mg TD QDAY [facility] Last Admin: 07/27/18 11:01 Dose: 7 mg Documented by: Ondansetron HCl (Zofran) 4 mg IV Q8H PRN PRN Reason: Nausea And Vomiting Sodium Chloride (Sodium Chloride Flush Syringe 10 Ml) 10 ml IV BID [facility] Last Admin: 07/27/18 11:00 Dose: 10 ml Documented by: Sodium Chloride (Sodium Chloride Flush Syringe 10 Ml) 10 ml IV PRN PRN PRN Reason: LINE FLUSH Review of Systems All systems: negative Physical Examination Vital signs: Vital Signs Pulse Resp Pulse Ox 98 H 20 100 07/26/18 19:16 07/26/18 19:16 07/26/18 19:16 General appearance: alert, appears uncomfortable Eyes: non-icteric ENT: other (Full face mask Bipap) Ascultation: Bilateral: diminished breath sounds, wheezes Percussion: Bilateral: not dull Cardiovascular: regular rate and rhythm (sinus tach) Gastrointestinal: tender, other (distended with some guarding) normal mental status Results - Laboratory Findings CBC and BMP: 07/26/18 19:41 07/27/18 02:50 ABG POC ABG pH 7.269 (7.35-7.45) L 07/27/18 08:58 POC ABG pCO2 76.4 (35-45) H 07/27/18 08:58 POC ABG pO2 94 (80-105) 07/27/18 08:58 POC ABG HCO3 35.0 07/27/18 08:58 POC ABG Total CO2 37 07/27/18 08:58 POC ABG O2 Sat 96 07/27/18 08:58 PT/INR, D-dimer D-Dimer 290.28 ng/mlDDU (0-234) H 07/26/18 19:41 Abnormal lab findings: Abnormal Labs 07/26/18 07/26/18 07/26/18 19:41 19:41 19:41 WBC 13.0 H Lymph % (Auto) 7.5 L Lymph # 1.0 L Seg Neutrophils % 85.5 H Seg Neutrophils # 11.1 H D-Dimer 290.28 H POC ABG pH POC ABG pCO2 POC ABG pO2 Sodium Chloride 91.9 L Carbon Dioxide 35 H BUN 23 H Glucose 179 H Lactic Acid Calcium 10.3 H Magnesium 2.90 H 07/26/18 07/26/18 07/27/18 20:58 23:24 02:50 WBC Lymph % (Auto) Lymph # Seg Neutrophils % Seg Neutrophils # D-Dimer POC ABG pH 7.237 L 7.257 L POC ABG pCO2 83.7 H 78.4 H POC ABG pO2 110 H 52 L Sodium Chloride Carbon Dioxide BUN Glucose Lactic Acid 3.30 H* Calcium Magnesium 07/27/18 07/27/18 07/27/18 02:50 06:14 08:58 WBC Lymph % (Auto) Lymph # Seg Neutrophils % Seg Neutrophils # D-Dimer POC ABG pH 7.269 L POC ABG pCO2 76.4 H POC ABG pO2 Sodium 136 L Chloride 91.4 L Carbon Dioxide 31 H BUN 22 H Glucose 312 H Lactic Acid 2.30 H* Calcium Magnesium 2.40 H Assessment and Plan 63 y/o female smoker, admitted with acute on chronic respiratory failure [facility] to COPD exacerbation. 1. Change steroids to 60q6 2. Added BID pulmicort and brovana 3. Smoking cessation
--- NOTE | 2018-07-27 12:51 | Progress Note ---
Assessment and Plan Assessment and plan: Acute on chronic resp failure due to COPD exacerbation and pneumonia On BIPAP Consulted pulm Repeat ABG COPD eaxcerbation solu-medrol, Duoneb BIPAP Sepsis secondary to pneyumonia. Blood cultures drawn Levaquin Pneumponia right upper lobe seen on CT Chest levaquin Hypertension Monitor bP Full code status History Interval history: Shortness of breath Wheezing Hospitalist Physical - Physical exam Narrative exam: GEN: Not in acute distress, On BIPAP HEENT: Normocephalic, atraumatic, Neck: supple, No JVD Lungs: Bilateral rhonchi, wheeze Heart:S1 and S2 regular, no murmurs, rubs or gallop, Abd:soft, non tender, non distended, normal bowel sounds Ext: No edema, no clubbing or cyanosis Neuro:Awake,alert,oriented x 3, moves all ext, no focal neurological signs - Constitutional Vitals: Temp Pulse Resp BP Pulse Ox 96.8 F L 96 H 26 H 139/60 98 07/27/18 08:03 07/27/18 09:06 07/27/18 09:06 07/27/18 08:03 07/27/18 08:43 General appearance: Present: no acute distress, other (on BiPAP) Results - Labs CBC & Chem 7: 07/26/18 19:41 07/27/18 02:50 Labs: Laboratory Last Values WBC 13.0 K/mm3 (4.5-11.0) H 07/26/18 19:41 RBC 4.24 M/mm3 (3.65-5.03) 07/26/18 19:41 Hgb 12.2 gm/dl (10.1-14.3) 07/26/18 19:41 Hct 37.2 % (30.3-42.9) 07/26/18 19:41 MCV 88 fl (79-97) 07/26/18 19:41 MCH 29 pg (28-32) 07/26/18 19:41 MCHC 33 % (30-34) 07/26/18 19:41 RDW 15.1 % (13.2-15.2) 07/26/18 19:41 Plt Count 242 K/mm3 (140-440) 07/26/18 19:41 Lymph % (Auto) 7.5 % (13.4-35.0) L 07/26/18 19:41 [place] % (Auto) 6.5 % (0.0-7.3) 07/26/18 19:41 Eos % (Auto) 0.1 % (0.0-4.3) 07/26/18 19:41 Baso % (Auto) 0.4 % (0.0-1.8) 07/26/18 19:41 Lymph # 1.0 K/mm3 (1.2-5.4) L 07/26/18 19:41 [place] # 0.8 K/mm3 (0.0-0.8) 07/26/18 19:41 Eos # 0.0 K/mm3 (0.0-0.4) 07/26/18 19:41 Baso # 0.0 K/mm3 (0.0-0.1) 07/26/18 19:41 Seg Neutrophils % 85.5 % (40.0-70.0) H 07/26/18 19:41 Seg Neutrophils # 11.1 K/mm3 (1.8-7.7) H 07/26/18 19:41 D-Dimer 290.28 ng/mlDDU (0-234) H 07/26/18 19:41 POC ABG pH 7.269 (7.35-7.45) L 07/27/18 08:58 POC ABG pCO2 76.4 (35-45) H 07/27/18 08:58 POC ABG pO2 94 (80-105) 07/27/18 08:58 POC ABG HCO3 35.0 07/27/18 08:58 POC ABG Total CO2 37 07/27/18 08:58 POC ABG O2 Sat 96 07/27/18 08:58 POC ABG Base Excess 8 07/27/18 08:58 FiO2 35 % 07/27/18 08:58 Sodium 136 mmol/L (137-145) L 07/27/18 02:50 Potassium 4.7 mmol/L (3.6-5.0) 07/27/18 02:50 Chloride 91.4 mmol/L (98-107) L 07/27/18 02:50 Carbon Dioxide 31 mmol/L (22-30) H 07/27/18 02:50 Anion Gap 18 mmol/L 07/27/18 02:50 BUN 22 mg/dL (7-17) H 07/27/18 02:50 Creatinine 1.1 mg/dL (0.7-1.2) 07/27/18 02:50 Estimated GFR > 60 ml/min 07/27/18 02:50 BUN/Creatinine Ratio 20 % 07/27/18 02:50 Glucose 312 mg/dL (65-100) H 07/27/18 02:50 Hemoglobin A1c 5.6 % (4-6) 07/27/18 02:50 Lactic Acid 2.30 mmol/L (0.7-2.0) H* 07/27/18 06:14 Calcium 9.7 mg/dL (8.4-10.2) 07/27/18 02:50 Magnesium 2.40 mg/dL (1.7-2.3) H 07/27/18 02:50 Total Bilirubin 0.20 mg/dL (0.1-1.2) 07/27/18 02:50 AST 21 units/L (5-40) 07/27/18 02:50 ALT 25 units/L (7-56) 07/27/18 02:50 Alkaline Phosphatase 50 units/L (35-129) 07/27/18 02:50 Total Creatine Kinase 134 units/L (30-135) 07/26/18 19:41 Troponin T < 0.010 ng/mL (0.00-0.029) 07/26/18 19:41 Total Protein 7.2 g/dL (6.3-8.2) 07/27/18 02:50 Albumin 4.6 g/dL (3.9-5) 07/27/18 02:50 Albumin/Globulin Ratio 1.8 % 07/27/18 02:50
[2018-07-27] MEDS ORDERED: ATIVAN IV PRN (14:30)
[2018-07-27] MEDS: CARDIZEM CD PO SCH (14:32)
[2018-07-27] MEDS: DIPRIVAN 10 MG/ML 1,000 MG/100 ML BOTTLE IV SCH ×2 (18:00→22:40)
[2018-07-27] MEDS ORDERED: D50W (25GM) Syringe IV PRN (18:04)
[2018-07-27] MEDS ORDERED: VASELINE LIP THERAPY TP PRN (18:06)
[2018-07-27] MEDS ORDERED: ARTIFICIAL TEARS OPHTH OINT OU PRN ×2 (18:06→19:51)
[2018-07-27] MEDS ORDERED: DIPRIVAN 10 MG/ML 1,000 MG/100 ML BOTTLE IV ONE (18:09)
[2018-07-27] MEDS ORDERED: VERSED IV ONE ×2 (19:00→21:18)
[2018-07-27] MEDS: BROVANA NEBU IH SCH (20:08)
[2018-07-27] MEDS: PULMICORT IH SCH (20:08)
[2018-07-27] MEDS: HumaLOG SUB-Q SCH (20:14)
[2018-07-27] MEDS: D5NS 1,000 ML IV SCH (20:14)
--- NOTE | 2018-07-27 20:29 | XRay Report ---
FINAL REPORT EXAM: XR CHEST 1V AP HISTORY: ETT placement TECHNIQUE: Frontal portable view of the chest Comparison: X-ray chest and CT chest dated July 26, 2018 FINDINGS: The tip of the endotracheal tube is at the inferior aspect of the clavicles and above the level of th e luca. The tip of the esophagogastric tube is not included in the field of view but is below the level of th e diaphragm. The reticular nodular pulmonary infiltrate in the right upper lobe demonstrated on CT is not as clear ly demonstrated with plain film imaging. There is no evidence of pneumothorax or pleural fluid collection. The cardiomediastinal silhouette is not significantly changed. IMPRESSION: 1. Tip of endotracheal tube projected in satisfactory position. 2. Tip of the esophagogastric tube not included in the field of view but is below the level of the di aphragm. 3. The reticulonodular infiltrate in the right upper lobe demonstrated on the recent CT chest is not as clearly demonstrated on plain film imaging.
[2018-07-28] MEDS: SOLU-Medrol IV SCH ×4 (00:58→18:47)
[2018-07-28] MEDS: HumaLOG SUB-Q SCH ×4 (00:59→18:47)
[2018-07-28] MEDS: DIPRIVAN 10 MG/ML 1,000 MG/100 ML BOTTLE IV SCH ×4 (03:59→20:40)
[2018-07-28] MEDS: DUONEB *Not for PRN Use IH SCH ×6 (04:41→23:21)
[2018-07-28] MEDS: MORPHINE IV PRN ×2 (06:08→20:10)
--- NOTE | 2018-07-28 07:34 | XRay Report ---
FINAL REPORT EXAM: XR CHEST 1V AP HISTORY: follow up respiratory failure TECHNIQUE: AP portable view(s) of the chest obtained. PRIORS: 07/27/2018 FINDINGS: No mediastinal shift. Cardiac silhouette is not enlarged. Endotracheal tube terminates approximately 6 cm from the luca. Enteric tube courses below the diaphragm. No pneumothorax, effusion, or focal p ulmonary opacity identified. No acute skeletal findings. IMPRESSION: Satisfactory appearance of patient's support apparatus without pneumothorax.
[2018-07-28] MEDS: BROVANA NEBU IH SCH ×2 (08:06→19:31)
[2018-07-28] MEDS: PULMICORT IH SCH ×2 (08:06→19:31)
[2018-07-28] MEDS: D5NS 1,000 ML IV SCH ×2 (09:07→21:28)
[2018-07-28] MEDS: LOVENOX SUB-Q SCH (09:11)
[2018-07-28] MEDS: LEVAQUIN 750MG/150ML 750 MG/150 ML BAG IV SCH (09:11)
--- NOTE | 2018-07-28 09:26 | Progress Note ---
Assessment and Plan Assessment and plan: Acute on chronic resp failure due to COPD exacerbation and pneumonia Initially was on BIPAP, however developed worse respiratory failure therfore intubated, put on vent, transferred to ICU Pulmonology following COPD exacerbation solu-medrol, Duoneb Sepsis secondary to pneumonia. Blood cultures drawn Levaquin Pneumponia right upper lobe seen on CT Chest levaquin Hypertension Monitor BP Full code status History Interval history: patient presented with shortness of breath, wheezing was on BIPAP on Tele Yesterday had worse resp distress, intubated put on ventilator transfered to ICU Hospitalist Physical - Physical exam Narrative exam: GEN: Not in acute distress, Intubated HEENT: Normocephalic, atraumatic, Neck: supple, No JVD Lungs: Bilateral rhonchi, wheeze Heart:S1 and S2 regular, no murmurs, rubs or gallop, Abd:soft, non tender, non distended, normal bowel sounds Ext: No edema, no clubbing or cyanosis Neuro: Intubated, sedated - Constitutional Vitals: Temp Pulse Resp BP Pulse Ox 99.6 F 100 H 18 113/56 96 07/28/18 04:00 07/28/18 08:32 07/28/18 08:32 07/28/18 08:00 07/28/18 08:00 General appearance: Present: no acute distress, other (on BiPAP) Results - Labs CBC & Chem 7: 07/26/18 19:41 07/27/18 02:50 Labs: Laboratory Last Values WBC 13.0 K/mm3 (4.5-11.0) H 07/26/18 19:41 RBC 4.24 M/mm3 (3.65-5.03) 07/26/18 19:41 Hgb 12.2 gm/dl (10.1-14.3) 07/26/18 19:41 Hct 37.2 % (30.3-42.9) 07/26/18 19:41 MCV 88 fl (79-97) 07/26/18 19:41 MCH 29 pg (28-32) 07/26/18 19:41 MCHC 33 % (30-34) 07/26/18 19:41 RDW 15.1 % (13.2-15.2) 07/26/18 19:41 Plt Count 242 K/mm3 (140-440) 07/26/18 19:41 Lymph % (Auto) 7.5 % (13.4-35.0) L 07/26/18 19:41 [place] % (Auto) 6.5 % (0.0-7.3) 07/26/18 19:41 Eos % (Auto) 0.1 % (0.0-4.3) 07/26/18 19:41 Baso % (Auto) 0.4 % (0.0-1.8) 07/26/18 19:41 Lymph # 1.0 K/mm3 (1.2-5.4) L 07/26/18 19:41 [place] # 0.8 K/mm3 (0.0-0.8) 07/26/18 19:41 Eos # 0.0 K/mm3 (0.0-0.4) 07/26/18 19:41 Baso # 0.0 K/mm3 (0.0-0.1) 07/26/18 19:41 Seg Neutrophils % 85.5 % (40.0-70.0) H 07/26/18 19:41 Seg Neutrophils # 11.1 K/mm3 (1.8-7.7) H 07/26/18 19:41 D-Dimer 290.28 ng/mlDDU (0-234) H 07/26/18 19:41 POC ABG pH 7.398 (7.35-7.45) 07/28/18 04:52 POC ABG pCO2 58.3 (35-45) H 07/28/18 04:52 POC ABG pO2 68 (80-105) L 07/28/18 04:52 POC ABG HCO3 35.9 07/28/18 04:52 POC ABG Total CO2 38 07/28/18 04:52 POC ABG O2 Sat 93 07/28/18 04:52 POC ABG Base Excess 11 07/28/18 04:52 FiO2 30 % 07/28/18 04:52 Sodium 136 mmol/L (137-145) L 07/27/18 02:50 Potassium 4.7 mmol/L (3.6-5.0) 07/27/18 02:50 Chloride 91.4 mmol/L (98-107) L 07/27/18 02:50 Carbon Dioxide 31 mmol/L (22-30) H 07/27/18 02:50 Anion Gap 18 mmol/L 07/27/18 02:50 BUN 22 mg/dL (7-17) H 07/27/18 02:50 Creatinine 1.1 mg/dL (0.7-1.2) 07/27/18 02:50 Estimated GFR > 60 ml/min 07/27/18 02:50 BUN/Creatinine Ratio 20 % 07/27/18 02:50 Glucose 312 mg/dL (65-100) H 07/27/18 02:50 POC Glucose 223 (70-105) H 07/28/18 05:24 Hemoglobin A1c 5.6 % (4-6) 07/27/18 02:50 Lactic Acid 1.60 mmol/L (0.7-2.0) 07/27/18 13:43 Calcium 9.7 mg/dL (8.4-10.2) 07/27/18 02:50 Magnesium 2.40 mg/dL (1.7-2.3) H 07/27/18 02:50 Total Bilirubin 0.20 mg/dL (0.1-1.2) 07/27/18 02:50 AST 21 units/L (5-40) 07/27/18 02:50 ALT 25 units/L (7-56) 07/27/18 02:50 Alkaline Phosphatase 50 units/L (35-129) 07/27/18 02:50 Total Creatine Kinase 134 units/L (30-135) 07/26/18 19:41 Troponin T < 0.010 ng/mL (0.00-0.029) 07/26/18 19:41 Total Protein 7.2 g/dL (6.3-8.2) 07/27/18 02:50 Albumin 4.6 g/dL (3.9-5) 07/27/18 02:50 Albumin/Globulin Ratio 1.8 % 07/27/18 02:50 Free T4 0.96 ng/dL (0.76-1.46) 07/27/18 13:43 Influenza A (Rapid) Negative (Negative) 07/28/18 03:50 Influenza B (Rapid) Negative (Negative) 07/28/18 03:50
[2018-07-28] MEDS: HABITROL TD SCH (10:01)
[2018-07-28] MEDS: SODIUM CHLORIDE FLUSH SYRINGE 10 ML IV SCH ×2 (10:08→21:03)
--- NOTE | 2018-07-28 11:42 | Progress Note ---
Assessment and Plan 63 y/o female smoker, admitted with acute on chronic respiratory failure secondary to COPD exacerbation. 1. Continue steroids at 60 q6 2. Continue BID pulmicort and brovana 3. Smoking cessation 4. Agree with q4 duoneb treatments 5. Repeat Lactic acid 6. Start BID PPI given contents in NG tube and hold on feedings for now. 7. Stat labs CCT 31 minutes. Subjective Date of service: 07/28/18 Interval history: Patient intubated last evening secondary to respiratory distress. Now with NG tube placement with dark brown and some bright red material in cannister. No family currently at bedside. Sedated on Propofol 40. Still very tight. Minimal vent settings. Objective Vital Signs - 12hr 07/27/18 07/27/18 07/27/18 23:41 23:48 23:51 Temperature 99.0 F Pulse Rate 104 H 105 H Pulse Rate [ Anterior Bilateral Throughout] Pulse Rate [ Right Dorsalis Pedis] Respiratory 18 18 Rate Respiratory Rate [Anterior Bilateral Throughout] Blood Pressure 130/60 O2 Sat by Pulse 95 95 Oximetry 07/28/18 07/28/18 07/28/18 00:00 00:11 00:21 Temperature Pulse Rate 114 H 103 H 105 H Pulse Rate [ Anterior Bilateral Throughout] Pulse Rate [ 114 H Right Dorsalis Pedis] Respiratory 20 17 18 Rate Respiratory Rate [Anterior Bilateral Throughout] Blood Pressure 120/56 120/56 130/58 O2 Sat by Pulse 95 95 94 Oximetry 07/28/18 07/28/18 07/28/18 00:30 00:41 00:51 Temperature Pulse Rate 102 H 100 H 105 H Pulse Rate [ Anterior Bilateral Throughout] Pulse Rate [ Right Dorsalis Pedis] Respiratory 19 18 18 Rate Respiratory Rate [Anterior Bilateral Throughout] Blood Pressure 121/60 121/60 115/58 O2 Sat by Pulse 94 94 95 Oximetry 07/28/18 07/28/18 07/28/18 01:00 01:11 01:21 Temperature Pulse Rate 105 H 101 H 97 H Pulse Rate [ Anterior Bilateral Throughout] Pulse Rate [ Right Dorsalis Pedis] Respiratory 18 18 18 Rate Respiratory Rate [Anterior Bilateral Throughout] Blood Pressure 105/57 105/57 105/57 O2 Sat by Pulse 95 96 96 Oximetry 07/28/18 07/28/18 07/28/18 01:30 01:41 01:51 Temperature Pulse Rate 98 H 101 H 106 H Pulse Rate [ Anterior Bilateral Throughout] Pulse Rate [ Right Dorsalis Pedis] Respiratory 18 18 18 Rate Respiratory Rate [Anterior Bilateral Throughout] Blood Pressure 121/62 121/62 125/58 O2 Sat by Pulse 97 97 97 Oximetry 07/28/18 07/28/18 07/28/18 02:00 02:15 02:30 Temperature Pulse Rate 102 H 102 H 102 H Pulse Rate [ Anterior Bilateral Throughout] Pulse Rate [ Right Dorsalis Pedis] Respiratory 18 18 18 Rate Respiratory Rate [Anterior Bilateral Throughout] Blood Pressure 111/57 108/56 103/57 O2 Sat by Pulse 97 98 99 Oximetry 07/28/18 07/28/18 07/28/18 02:45 03:00 03:15 Temperature Pulse Rate 96 H 105 H 103 H Pulse Rate [ Anterior Bilateral Throughout] Pulse Rate [ Right Dorsalis Pedis] Respiratory 18 18 18 Rate Respiratory Rate [Anterior Bilateral Throughout] Blood Pressure 118/62 115/58 123/58 O2 Sat by Pulse 100 96 97 Oximetry 07/28/18 07/28/18 07/28/18 03:30 03:45 04:00 Temperature 99.6 F Pulse Rate 109 H 106 H 105 H Pulse Rate [ Anterior Bilateral Throughout] Pulse Rate [ 102 H Right Dorsalis Pedis] Respiratory 18 18 18 Rate Respiratory Rate [Anterior Bilateral Throughout] Blood Pressure 114/58 105/53 121/61 O2 Sat by Pulse 97 96 97 Oximetry 07/28/18 07/28/18 07/28/18 04:15 04:30 04:40 Temperature Pulse Rate 106 H 105 H 97 H Pulse Rate [ 95 H Anterior Bilateral Throughout] Pulse Rate [ Right Dorsalis Pedis] Respiratory 18 18 Rate Respiratory 18 Rate [Anterior Bilateral Throughout] Blood Pressure 114/60 111/56 O2 Sat by Pulse 97 97 94 Oximetry 07/28/18 07/28/18 07/28/18 04:45 04:50 05:00 Temperature Pulse Rate 102 H 101 H Pulse Rate [ 102 H Anterior Bilateral Throughout] Pulse Rate [ Right Dorsalis Pedis] Respiratory 16 18 Rate Respiratory 20 Rate [Anterior Bilateral Throughout] Blood Pressure 114/65 124/70 O2 Sat by Pulse 96 100 Oximetry 07/28/18 07/28/18 07/28/18 05:15 05:31 05:45 Temperature Pulse Rate 110 H 119 H 128 H Pulse Rate [ Anterior Bilateral Throughout] Pulse Rate [ Right Dorsalis Pedis] Respiratory 18 16 25 H Rate Respiratory Rate [Anterior Bilateral Throughout] Blood Pressure 121/61 140/106 134/45 O2 Sat by Pulse 97 88 84 Oximetry 07/28/18 07/28/18 07/28/18 06:00 06:08 06:15 Temperature Pulse Rate 123 H 138 H Pulse Rate [ Anterior Bilateral Throughout] Pulse Rate [ Right Dorsalis Pedis] Respiratory 23 22 18 Rate Respiratory Rate [Anterior Bilateral Throughout] Blood Pressure 160/81 110/53 O2 Sat by Pulse 93 94 Oximetry 07/28/18 07/28/18 07/28/18 06:30 06:45 07:00 Temperature Pulse Rate 114 H 103 H 105 H Pulse Rate [ Anterior Bilateral Throughout] Pulse Rate [ Right Dorsalis Pedis] Respiratory 18 18 18 Rate Respiratory Rate [Anterior Bilateral Throughout] Blood Pressure 108/58 106/58 118/64 O2 Sat by Pulse 97 100 96 Oximetry 07/28/18 07/28/18 07/28/18 07:15 07:30 07:45 Temperature Pulse Rate 105 H 104 H 102 H Pulse Rate [ Anterior Bilateral Throughout] Pulse Rate [ Right Dorsalis Pedis] Respiratory 18 18 18 Rate Respiratory Rate [Anterior Bilateral Throughout] Blood Pressure 116/62 104/64 106/57 O2 Sat by Pulse 96 96 96 Oximetry 07/28/18 07/28/18 07/28/18 08:00 08:15 08:30 Temperature 99.6 F Pulse Rate 103 H 100 H 100 H Pulse Rate [ 103 H Anterior Bilateral Throughout] Pulse Rate [ 108 H Right Dorsalis Pedis] Respiratory 18 18 18 Rate Respiratory 18 Rate [Anterior Bilateral Throughout] Blood Pressure 113/56 113/60 107/61 O2 Sat by Pulse 96 98 100 Oximetry 07/28/18 07/28/18 07/28/18 08:32 08:45 09:00 Temperature Pulse Rate 93 H 118 H Pulse Rate [ 100 H Anterior Bilateral Throughout] Pulse Rate [ Right Dorsalis Pedis] Respiratory 18 22 Rate Respiratory 18 Rate [Anterior Bilateral Throughout] Blood Pressure 122/72 122/72 O2 Sat by Pulse 100 78 L Oximetry 07/28/18 07/28/18 07/28/18 09:15 09:30 09:45 Temperature Pulse Rate 122 H 138 H 112 H Pulse Rate [ Anterior Bilateral Throughout] Pulse Rate [ Right Dorsalis Pedis] Respiratory 25 H 25 H 18 Rate Respiratory Rate [Anterior Bilateral Throughout] Blood Pressure 125/71 135/84 141/87 O2 Sat by Pulse 92 88 89 Oximetry 07/28/18 07/28/18 10:00 10:15 Temperature Pulse Rate 129 H 132 H Pulse Rate [ Anterior Bilateral Throughout] Pulse Rate [ Right Dorsalis Pedis] Respiratory 19 18 Rate Respiratory Rate [Anterior Bilateral Throughout] Blood Pressure 133/78 128/79 O2 Sat by Pulse 92 92 Oximetry Constitutional: alert, appears uncomfortable Eyes: non-icteric ENT: other (Orally intubated and sedated. Critically ill on vent) Ascultation: Bilateral: diminished breath sounds, wheezes Percussion: Bilateral: not dull Cardiovascular: regular rate and rhythm (sinus tach) Gastrointestinal: tender, other (distended with some guarding) Neurologic: normal mental status CBC and BMP: 07/26/18 19:41 07/27/18 02:50 ABG, PT/INR, D-dimer: ABG POC ABG pH 7.398 (7.35-7.45) 07/28/18 04:52 POC ABG pCO2 58.3 (35-45) H 07/28/18 04:52 POC ABG pO2 68 (80-105) L 07/28/18 04:52 POC ABG HCO3 35.9 07/28/18 04:52 POC ABG Total CO2 38 07/28/18 04:52 POC ABG O2 Sat 93 07/28/18 04:52 PT/INR, D-dimer D-Dimer 290.28 ng/mlDDU (0-234) H 07/26/18 19:41 Abnormal lab findings: Abnormal Labs 07/26/18 07/26/18 07/26/18 19:41 19:41 19:41 WBC 13.0 H Lymph % (Auto) 7.5 L Lymph # 1.0 L Seg Neutrophils % 85.5 H Seg Neutrophils # 11.1 H D-Dimer 290.28 H POC ABG pH POC ABG pCO2 POC ABG pO2 Sodium Chloride 91.9 L Carbon Dioxide 35 H BUN 23 H Glucose 179 H POC Glucose Lactic Acid Calcium 10.3 H Magnesium 2.90 H 07/26/18 07/26/18 07/27/18 20:58 23:24 02:50 WBC Lymph % (Auto) Lymph # Seg Neutrophils % Seg Neutrophils # D-Dimer POC ABG pH 7.237 L 7.257 L POC ABG pCO2 83.7 H 78.4 H POC ABG pO2 110 H 52 L Sodium Chloride Carbon Dioxide BUN Glucose POC Glucose Lactic Acid 3.30 H* Calcium Magnesium 07/27/18 07/27/18 07/27/18 02:50 06:14 08:58 WBC Lymph % (Auto) Lymph # Seg Neutrophils % Seg Neutrophils # D-Dimer POC ABG pH 7.269 L POC ABG pCO2 76.4 H POC ABG pO2 Sodium 136 L Chloride 91.4 L Carbon Dioxide 31 H BUN 22 H Glucose 312 H POC Glucose Lactic Acid 2.30 H* Calcium Magnesium 2.40 H 07/27/18 07/27/18 07/27/18 19:39 20:18 23:35 WBC Lymph % (Auto) Lymph # Seg Neutrophils % Seg Neutrophils # D-Dimer POC ABG pH POC ABG pCO2 62.7 H POC ABG pO2 220 H Sodium Chloride Carbon Dioxide BUN Glucose POC Glucose 203 H 171 H Lactic Acid Calcium Magnesium 07/28/18 07/28/18 04:52 05:24 WBC Lymph % (Auto) Lymph # Seg Neutrophils % Seg Neutrophils # D-Dimer POC ABG pH POC ABG pCO2 58.3 H POC ABG pO2 68 L Sodium Chloride Carbon Dioxide BUN Glucose POC Glucose 223 H Lactic Acid Calcium Magnesium
[2018-07-28] MEDS: PROTONIX IV SCH ×2 (12:00→21:03)
[2018-07-28] MEDS: CARDIZEM CD PO SCH (13:07)
[2018-07-28 15:21] LABS: Hematocrit 31.1 % (30.3-42.9); Hemoglobin 10.3 gm/dl (10.1-14.3); Mean Corpuscular HGB Conc 33 % (30-34); Mean Corpuscular Volume 88 fl (79-97); Platelet Count 182 K/mm3 (140-440); Red Blood Count 3.54 M/mm3 (3.65-5.03); Red Cell Distribution Width 14.8 % (13.2-15.2)
[2018-07-28 15:34] LABS: BUN/Creatinine Ratio 24; Blood Urea Nitrogen 26 mg/dL (7-17); Calcium 9.2 mg/dL (8.4-10.2); Hemolysis Index 4
[2018-07-29] MEDS: DIPRIVAN 10 MG/ML 1,000 MG/100 ML BOTTLE IV SCH ×5 (01:20→19:37)
[2018-07-29] MEDS: SOLU-Medrol IV SCH ×3 (01:57→13:09)
[2018-07-29] MEDS: HumaLOG SUB-Q SCH ×4 (01:58→18:41)
[2018-07-29] MEDS: DUONEB *Not for PRN Use IH SCH ×6 (03:19→23:04)
--- NOTE | 2018-07-29 03:48 | XRay Report ---
PROCEDURE: PORTABLE CHEST TECHNIQUE: A portable AP chest radiograph was obtained at 07/29/2018 7:41 [employer]. CPT 24836 HISTORY: Intubation COMPARISONS: 07/28/2018. FINDINGS: Heart: Normal. Mediastinum/Vessels: Normal. Lungs/Pleural space: The lungs are expanded. There are no infiltrates, effusions or pneumothoraces.. Bony thorax: No acute osseous abnormality. Life support devices: Endotracheal tube is in the mid trachea. NG tube is in the stomach.. IMPRESSION: No acute cardiopulmonary abnormality. Endotracheal tube is in the mid trachea. NG tube is in the stomach.. This document is electronically signed by Chay Reeves MD., July 29 2018 03:45:49 AM ET
[2018-07-29] MEDS: MORPHINE IV PRN ×4 (04:15→21:31)
[2018-07-29 06:00] LABS: Hematocrit 33.2 % (30.3-42.9); Mean Corpuscular HGB Conc 33 % (30-34); Mean Corpuscular Volume 89 fl (79-97); Platelet Count 187 K/mm3 (140-440); Red Blood Count 3.73 M/mm3 (3.65-5.03); Red Cell Distribution Width 14.4 % (13.2-15.2)
[2018-07-29 06:19] LABS: BUN/Creatinine Ratio 23; Blood Urea Nitrogen 25 mg/dL (7-17); Calcium 9.1 mg/dL (8.4-10.2); Hemolysis Index 10
[2018-07-29] MEDS: BROVANA NEBU IH SCH ×2 (08:13→19:04)
[2018-07-29] MEDS: PULMICORT IH SCH ×2 (08:13→19:04)
--- NOTE | 2018-07-29 08:30 | Progress Note ---
Assessment and Plan Assessment and plan: Acute on chronic resp failure due to COPD exacerbation and pneumonia Initially was on BIPAP, however developed worse respiratory failure therfore intubated, put on vent, transferred to ICU Pulmonology following COPD exacerbation solu-medrol, Duoneb Sepsis secondary to pneumonia. Blood cultures drawn Levaquin Pneumponia right upper lobe seen on CT Chest levaquin Hypertension Monitor BP Full code status Patient doing better. Possible extubate today History Interval history: patient presented with shortness of breath, wheezing was on BIPAP on Tele On 07/27 had worse resp distress, intubated put on ventilator transfered to ICU Hospitalist Physical - Physical exam Narrative exam: GEN: Not in acute distress, Intubated HEENT: Normocephalic, atraumatic, Neck: supple, No JVD Lungs: Bilateral rhonchi, wheeze Heart:S1 and S2 regular, no murmurs, rubs or gallop, Abd:soft, non tender, non distended, normal bowel sounds Ext: No edema, no clubbing or cyanosis Neuro: Intubated, awake,alert - Constitutional Vitals: Temp Pulse Resp BP Pulse Ox 98.5 F 89 18 117/72 97 07/29/18 07:57 07/29/18 08:14 07/29/18 08:14 07/29/18 08:14 07/29/18 08:14 General appearance: Present: no acute distress, other (on BiPAP) Results - Labs CBC & Chem 7: 07/29/18 05:00 07/29/18 05:00 Labs: Laboratory Last Values WBC 7.1 K/mm3 (4.5-11.0) 07/29/18 05:00 RBC 3.73 M/mm3 (3.65-5.03) 07/29/18 05:00 Hgb 11.0 gm/dl (10.1-14.3) 07/29/18 05:00 Hct 33.2 % (30.3-42.9) 07/29/18 05:00 MCV 89 fl (79-97) 07/29/18 05:00 MCH 29 pg (28-32) 07/29/18 05:00 MCHC 33 % (30-34) 07/29/18 05:00 RDW 14.4 % (13.2-15.2) 07/29/18 05:00 Plt Count 187 K/mm3 (140-440) 07/29/18 05:00 Lymph % (Auto) 7.5 % (13.4-35.0) L 07/26/18 19:41 [place] % (Auto) 6.5 % (0.0-7.3) 07/26/18 19:41 Eos % (Auto) 0.1 % (0.0-4.3) 07/26/18 19:41 Baso % (Auto) 0.4 % (0.0-1.8) 07/26/18 19:41 Lymph # 1.0 K/mm3 (1.2-5.4) L 07/26/18 19:41 [place] # 0.8 K/mm3 (0.0-0.8) 07/26/18 19:41 Eos # 0.0 K/mm3 (0.0-0.4) 07/26/18 19:41 Baso # 0.0 K/mm3 (0.0-0.1) 07/26/18 19:41 Seg Neutrophils % 85.5 % (40.0-70.0) H 07/26/18 19:41 Seg Neutrophils # 11.1 K/mm3 (1.8-7.7) H 07/26/18 19:41 D-Dimer 290.28 ng/mlDDU (0-234) H 07/26/18 19:41 POC ABG pH 7.372 (7.35-7.45) 07/29/18 06:09 POC ABG pCO2 59.3 (35-45) H 07/29/18 06:09 POC ABG pO2 80 (80-105) 07/29/18 06:09 POC ABG HCO3 34.4 07/29/18 06:09 POC ABG Total CO2 36 07/29/18 06:09 POC ABG O2 Sat 95 07/29/18 06:09 POC ABG Base Excess 9 07/29/18 06:09 FiO2 30 % 07/29/18 06:09 Sodium 143 mmol/L (137-145) 07/29/18 05:00 Potassium 4.0 mmol/L (3.6-5.0) 07/29/18 05:00 Chloride 98.1 mmol/L (98-107) 07/29/18 05:00 Carbon Dioxide 31 mmol/L (22-30) H 07/29/18 05:00 Anion Gap 18 mmol/L 07/29/18 05:00 BUN 25 mg/dL (7-17) H 07/29/18 05:00 Creatinine 1.1 mg/dL (0.7-1.2) 07/29/18 05:00 Estimated GFR > 60 ml/min 07/29/18 05:00 BUN/Creatinine Ratio 23 % 07/29/18 05:00 Glucose 204 mg/dL (65-100) H 07/29/18 05:00 POC Glucose 204 (70-105) H 07/29/18 05:08 Hemoglobin A1c 5.6 % (4-6) 07/27/18 02:50 Lactic Acid 1.60 mmol/L (0.7-2.0) 07/28/18 19:08 Calcium 9.1 mg/dL (8.4-10.2) 07/29/18 05:00 Phosphorus 2.60 mg/dL (2.5-4.5) 07/28/18 15:03 Magnesium 2.30 mg/dL (1.7-2.3) 07/28/18 15:03 Total Bilirubin 0.20 mg/dL (0.1-1.2) 07/27/18 02:50 AST 21 units/L (5-40) 07/27/18 02:50 ALT 25 units/L (7-56) 07/27/18 02:50 Alkaline Phosphatase 50 units/L (35-129) 07/27/18 02:50 Total Creatine Kinase 134 units/L (30-135) 07/26/18 19:41 Troponin T < 0.010 ng/mL (0.00-0.029) 07/26/18 19:41 Total Protein 7.2 g/dL (6.3-8.2) 07/27/18 02:50 Albumin 4.6 g/dL (3.9-5) 07/27/18 02:50 Albumin/Globulin Ratio 1.8 % 07/27/18 02:50 Free T4 0.96 ng/dL (0.76-1.46) 07/27/18 13:43 Influenza A (Rapid) Negative (Negative) 07/28/18 03:50 Influenza B (Rapid) Negative (Negative) 07/28/18 03:50 Nutrition/Malnutrition Assess - Dietary Evaluation Nutrition/Malnutrition Findings: Nutrition Notes Start: 07/28/18 11:58 Freq: Status: Active Protocol: Document 07/28/18 11:58 CP (Rec: 07/28/18 12:08 CP [id number]) Co-Sign 07/28/18 11:58 LP Nutrition Notes Need for Assessment generated from: MD Order Initial or Follow up Assessment Current Diagnosis COPD Sepsis Hypertension Respiratory Failure Other Pertinent Diagnosis Pneumonia, hypercalcemia, DVT prophylaxis Current Diet NPO Labs/Tests POC B Pertinent Medications Insulin Solu-medrol Height 5 ft 4 in Weight 90 kg [place] Body Weight (kg) 54.54 BMI 34.0 Weight Status Obese Subjective/Other Information MD consult for NTR intake. Awaiting TF consult per MD. Percent of energy/protein needs met: 0%/0% Burn Absent Trauma Absent #1 Nutrition Diagnosis Inadequate oral intake Etiology Chronic RF and COPD exacerbation As Evidenced by Signs and Symptoms NPO status Is patient on ventilator? Yes Is Patient Ambulatory and/or Out of Bed No [facility] [phone] Calculation [facility]ations [facility] Additional Notes Pro: 109 g (2g/kg IBW) Fluid: 1mL/kcal Nutrition Intervention Goal #1 Diet advancement per MD request Anticipated Discharge Needs: Unable to determine at this time Follow-Up By: 08/01/18 Additional Comments F/U: Diet advancement
[2018-07-29] MEDS: LOVENOX SUB-Q SCH (09:28)
[2018-07-29] MEDS: LEVAQUIN 750MG/150ML 750 MG/150 ML BAG IV SCH (09:28)
[2018-07-29] MEDS: PROTONIX IV SCH (09:33)
[2018-07-29] MEDS: HABITROL TD SCH (10:00)
[2018-07-29] MEDS: CARDIZEM CD PO SCH (10:00)
[2018-07-29] MEDS: SODIUM CHLORIDE FLUSH SYRINGE 10 ML IV SCH ×2 (10:08→22:00)
[2018-07-29] MEDS: D5NS 1,000 ML IV SCH (11:24)
--- NOTE | 2018-07-29 12:25 | Progress Note ---
Assessment and Plan 63 y/o female smoker, admitted with acute on chronic respiratory failure secondary to COPD exacerbation. 1. Continue steroids at 60 q6 2. Continue BID pulmicort and brovana 3. Smoking cessation 4. Agree with q4 duoneb treatments 5. Lactic acid ok and output has decreased and returned to normal. Change PPI to daily and start tube feeds 6. Will reasess for SBT tomorrow CCT 31 minutes. Subjective Date of service: 07/29/18 Interval history: slightly less wheezing today. Still tight. PaO2 is improving. Objective Vital Signs - 12hr 07/29/18 07/29/18 07/29/18 00:30 00:45 01:00 Temperature Pulse Rate 94 H 97 H 105 H Pulse Rate [ Anterior Bilateral Throughout] Pulse Rate [ Right Dorsalis Pedis] Respiratory 18 18 19 Rate Respiratory Rate [Anterior Bilateral Throughout] Blood Pressure 110/65 129/57 129/57 O2 Sat by Pulse 96 95 92 Oximetry 07/29/18 07/29/18 07/29/18 01:15 01:31 01:45 Temperature Pulse Rate 133 H 95 H 96 H Pulse Rate [ Anterior Bilateral Throughout] Pulse Rate [ Right Dorsalis Pedis] Respiratory 18 17 18 Rate Respiratory Rate [Anterior Bilateral Throughout] Blood Pressure 170/76 137/80 145/72 O2 Sat by Pulse 97 96 97 Oximetry 07/29/18 07/29/18 07/29/18 02:00 02:15 02:31 Temperature Pulse Rate 91 H 99 H 129 H Pulse Rate [ Anterior Bilateral Throughout] Pulse Rate [ Right Dorsalis Pedis] Respiratory 17 18 19 Rate Respiratory Rate [Anterior Bilateral Throughout] Blood Pressure 122/74 138/83 130/83 O2 Sat by Pulse 96 96 95 Oximetry 07/29/18 07/29/18 07/29/18 02:45 03:00 03:14 Temperature 99.2 F Pulse Rate 106 H 102 H Pulse Rate [ Anterior Bilateral Throughout] Pulse Rate [ Right Dorsalis Pedis] Respiratory 26 H 18 Rate Respiratory Rate [Anterior Bilateral Throughout] Blood Pressure 145/90 145/90 O2 Sat by Pulse 94 95 Oximetry 07/29/18 07/29/18 07/29/18 03:15 03:25 03:31 Temperature Pulse Rate 104 H 103 H Pulse Rate [ 102 H 136 H Anterior Bilateral Throughout] Pulse Rate [ Right Dorsalis Pedis] Respiratory 18 22 Rate Respiratory 24 20 Rate [Anterior Bilateral Throughout] Blood Pressure 123/82 128/75 O2 Sat by Pulse 99 100 Oximetry 07/29/18 07/29/18 07/29/18 03:45 04:00 04:01 Temperature Pulse Rate 113 H 116 H Pulse Rate [ Anterior Bilateral Throughout] Pulse Rate [ 105 H Right Dorsalis Pedis] Respiratory 20 18 18 Rate Respiratory Rate [Anterior Bilateral Throughout] Blood Pressure 114/84 139/64 O2 Sat by Pulse 94 96 94 Oximetry 07/29/18 07/29/18 07/29/18 04:15 04:31 04:45 Temperature Pulse Rate 114 H 136 H 104 H Pulse Rate [ Anterior Bilateral Throughout] Pulse Rate [ Right Dorsalis Pedis] Respiratory 24 17 19 Rate Respiratory Rate [Anterior Bilateral Throughout] Blood Pressure 139/64 132/91 154/85 O2 Sat by Pulse 94 95 96 Oximetry 07/29/18 07/29/18 07/29/18 05:01 05:15 05:22 Temperature Pulse Rate 102 H 103 H 99 H Pulse Rate [ Anterior Bilateral Throughout] Pulse Rate [ Right Dorsalis Pedis] Respiratory 18 18 Rate Respiratory Rate [Anterior Bilateral Throughout] Blood Pressure 132/91 136/82 136/82 O2 Sat by Pulse 96 95 95 Oximetry 07/29/18 07/29/18 07/29/18 05:31 05:45 06:00 Temperature Pulse Rate 97 H 91 H 96 H Pulse Rate [ Anterior Bilateral Throughout] Pulse Rate [ Right Dorsalis Pedis] Respiratory 18 18 17 Rate Respiratory Rate [Anterior Bilateral Throughout] Blood Pressure 136/82 136/82 117/69 O2 Sat by Pulse 95 97 95 Oximetry 07/29/18 07/29/18 07/29/18 06:15 06:30 06:45 Temperature Pulse Rate 92 H 90 89 Pulse Rate [ Anterior Bilateral Throughout] Pulse Rate [ Right Dorsalis Pedis] Respiratory 18 18 17 Rate Respiratory Rate [Anterior Bilateral Throughout] Blood Pressure 120/71 123/71 123/71 O2 Sat by Pulse 96 95 95 Oximetry 07/29/18 07/29/18 07/29/18 07:00 07:15 07:30 Temperature Pulse Rate 95 H 85 84 Pulse Rate [ Anterior Bilateral Throughout] Pulse Rate [ Right Dorsalis Pedis] Respiratory 17 18 18 Rate Respiratory Rate [Anterior Bilateral Throughout] Blood Pressure 119/70 115/67 125/70 O2 Sat by Pulse 95 97 98 Oximetry 07/29/18 07/29/18 07/29/18 07:45 07:57 08:00 Temperature 98.5 F Pulse Rate 89 83 Pulse Rate [ Anterior Bilateral Throughout] Pulse Rate [ 98 H Right Dorsalis Pedis] Respiratory 18 18 Rate Respiratory Rate [Anterior Bilateral Throughout] Blood Pressure 114/72 112/64 O2 Sat by Pulse 97 97 Oximetry 07/29/18 07/29/18 07/29/18 08:14 08:15 08:31 Temperature Pulse Rate 89 89 107 H Pulse Rate [ 89 Anterior Bilateral Throughout] Pulse Rate [ Right Dorsalis Pedis] Respiratory 18 18 Rate Respiratory 18 Rate [Anterior Bilateral Throughout] Blood Pressure 117/72 111/72 133/70 O2 Sat by Pulse 97 95 97 Oximetry 07/29/18 07/29/18 07/29/18 08:45 09:00 09:05 Temperature Pulse Rate 138 H 114 H Pulse Rate [ 110 H Anterior Bilateral Throughout] Pulse Rate [ Right Dorsalis Pedis] Respiratory 18 18 Rate Respiratory 20 Rate [Anterior Bilateral Throughout] Blood Pressure 133/70 148/77 O2 Sat by Pulse 74 L Oximetry 07/29/18 07/29/18 07/29/18 09:15 09:31 09:45 Temperature Pulse Rate 116 H 138 H 113 H Pulse Rate [ Anterior Bilateral Throughout] Pulse Rate [ Right Dorsalis Pedis] Respiratory 18 22 18 Rate Respiratory Rate [Anterior Bilateral Throughout] Blood Pressure 148/67 163/121 132/85 O2 Sat by Pulse 96 96 Oximetry 07/29/18 07/29/18 07/29/18 10:00 10:15 10:30 Temperature Pulse Rate 112 H 106 H 128 H Pulse Rate [ Anterior Bilateral Throughout] Pulse Rate [ Right Dorsalis Pedis] Respiratory 17 17 18 Rate Respiratory Rate [Anterior Bilateral Throughout] Blood Pressure 132/85 129/63 109/69 O2 Sat by Pulse 96 97 Oximetry 07/29/18 07/29/18 07/29/18 10:45 11:00 11:15 Temperature Pulse Rate 115 H 109 H 101 H Pulse Rate [ Anterior Bilateral Throughout] Pulse Rate [ Right Dorsalis Pedis] Respiratory 19 18 18 Rate Respiratory Rate [Anterior Bilateral Throughout] Blood Pressure 121/67 104/64 105/70 O2 Sat by Pulse 98 98 98 Oximetry 07/29/18 07/29/18 07/29/18 11:30 11:45 12:00 Temperature Pulse Rate 122 H 97 H 94 H Pulse Rate [ Anterior Bilateral Throughout] Pulse Rate [ Right Dorsalis Pedis] Respiratory 18 18 18 Rate Respiratory Rate [Anterior Bilateral Throughout] Blood Pressure 115/67 112/69 104/71 O2 Sat by Pulse 97 98 97 Oximetry 07/29/18 12:06 Temperature 98.4 F Pulse Rate Pulse Rate [ Anterior Bilateral Throughout] Pulse Rate [ Right Dorsalis Pedis] Respiratory Rate Respiratory Rate [Anterior Bilateral Throughout] Blood Pressure O2 Sat by Pulse Oximetry Constitutional: alert, appears uncomfortable Eyes: non-icteric ENT: other (Orally intubated and sedated. Critically ill on vent) Ascultation: Bilateral: diminished breath sounds, wheezes Percussion: Bilateral: not dull Cardiovascular: regular rate and rhythm (sinus tach) Gastrointestinal: tender, other (distended with some guarding) Neurologic: normal mental status CBC and BMP: 07/29/18 05:00 07/29/18 05:00 ABG, PT/INR, D-dimer: ABG POC ABG pH 7.372 (7.35-7.45) 07/29/18 06:09 POC ABG pCO2 59.3 (35-45) H 07/29/18 06:09 POC ABG pO2 80 (80-105) 07/29/18 06:09 POC ABG HCO3 34.4 07/29/18 06:09 POC ABG Total CO2 36 07/29/18 06:09 POC ABG O2 Sat 95 07/29/18 06:09 PT/INR, D-dimer D-Dimer 290.28 ng/mlDDU (0-234) H 07/26/18 19:41 Abnormal lab findings: Abnormal Labs 07/26/18 07/26/18 07/26/18 19:41 19:41 19:41 WBC 13.0 H RBC Lymph % (Auto) 7.5 L Lymph # 1.0 L Seg Neutrophils % 85.5 H Seg Neutrophils # 11.1 H D-Dimer 290.28 H POC ABG pH POC ABG pCO2 POC ABG pO2 Sodium Chloride 91.9 L Carbon Dioxide 35 H BUN 23 H Glucose 179 H POC Glucose Lactic Acid Calcium 10.3 H Magnesium 2.90 H 07/26/18 07/26/18 07/27/18 20:58 23:24 02:50 WBC RBC Lymph % (Auto) Lymph # Seg Neutrophils % Seg Neutrophils # D-Dimer POC ABG pH 7.237 L 7.257 L POC ABG pCO2 83.7 H 78.4 H POC ABG pO2 110 H 52 L Sodium Chloride Carbon Dioxide BUN Glucose POC Glucose Lactic Acid 3.30 H* Calcium Magnesium 07/27/18 07/27/18 07/27/18 02:50 06:14 08:58 WBC RBC Lymph % (Auto) Lymph # Seg Neutrophils % Seg Neutrophils # D-Dimer POC ABG pH 7.269 L POC ABG pCO2 76.4 H POC ABG pO2 Sodium 136 L Chloride 91.4 L Carbon Dioxide 31 H BUN 22 H Glucose 312 H POC Glucose Lactic Acid 2.30 H* Calcium Magnesium 2.40 H 07/27/18 07/27/18 07/27/18 19:39 20:18 23:35 WBC RBC Lymph % (Auto) Lymph # Seg Neutrophils % Seg Neutrophils # D-Dimer POC ABG pH POC ABG pCO2 62.7 H POC ABG pO2 220 H Sodium Chloride Carbon Dioxide BUN Glucose POC Glucose 203 H 171 H Lactic Acid Calcium Magnesium 07/28/18 07/28/18 07/28/18 04:52 05:24 11:55 WBC RBC Lymph % (Auto) Lymph # Seg Neutrophils % Seg Neutrophils # D-Dimer POC ABG pH POC ABG pCO2 58.3 H POC ABG pO2 68 L Sodium Chloride Carbon Dioxide BUN Glucose POC Glucose 223 H 220 H Lactic Acid Calcium Magnesium 07/28/18 07/28/18 07/28/18 15:03 15:03 15:03 WBC RBC 3.54 L Lymph % (Auto) Lymph # Seg Neutrophils % Seg Neutrophils # D-Dimer POC ABG pH POC ABG pCO2 POC ABG pO2 Sodium Chloride 96.2 L Carbon Dioxide 36 H BUN 26 H Glucose 194 H POC Glucose Lactic Acid 2.20 H* Calcium Magnesium 07/28/18 07/28/18 07/29/18 16:01 18:23 00:02 WBC RBC Lymph % (Auto) Lymph # Seg Neutrophils % Seg Neutrophils # D-Dimer POC ABG pH 7.188 L POC ABG pCO2 72.5 H POC ABG pO2 67 L Sodium Chloride Carbon Dioxide BUN Glucose POC Glucose 197 H 210 H Lactic Acid Calcium Magnesium 07/29/18 07/29/18 07/29/18 05:00 05:08 06:09 WBC RBC Lymph % (Auto) Lymph # Seg Neutrophils % Seg Neutrophils # D-Dimer POC ABG pH POC ABG pCO2 59.3 H POC ABG pO2 Sodium Chloride Carbon Dioxide 31 H BUN 25 H Glucose 204 H POC Glucose 204 H Lactic Acid Calcium Magnesium 07/29/18 11:29 WBC RBC Lymph % (Auto) Lymph # Seg Neutrophils % Seg Neutrophils # D-Dimer POC ABG pH POC ABG pCO2 POC ABG pO2 Sodium Chloride Carbon Dioxide BUN Glucose POC Glucose 225 H Lactic Acid Calcium Magnesium
[2018-07-29] MEDS ORDERED: SIMPLE SYRUP FEEDTUBE PRN ×2 (13:49)
[2018-07-29] MEDS ORDERED: SODIUM BICARBONATE FEEDTUBE PRN (13:49)
[2018-07-29] MEDS ORDERED: PANCREAZE DR 10,500 UNIT FEEDTUBE PRN (13:49)
[2018-07-29] MEDS: CARDIZEM PO SCH ×2 (14:00→18:40)
[2018-07-30] MEDS: CARDIZEM PO SCH ×4 (00:14→17:49)
[2018-07-30] MEDS: DIPRIVAN 10 MG/ML 1,000 MG/100 ML BOTTLE IV SCH ×7 (00:18→23:28)
[2018-07-30] MEDS: MORPHINE IV PRN ×6 (00:20→22:45)
[2018-07-30] MEDS: SOLU-Medrol IV SCH ×7 (00:20→23:27)
[2018-07-30] MEDS: HumaLOG SUB-Q SCH ×4 (00:26→17:49)
[2018-07-30] MEDS: D5NS 1,000 ML IV SCH (00:28)
[2018-07-30] MEDS: DUONEB *Not for PRN Use IH SCH ×6 (03:03→23:17)
--- NOTE | 2018-07-30 03:35 | XRay Report ---
PROCEDURE: XR CHEST 1V AP TECHNIQUE: Chest radiograph single view. HISTORY: follow up respiratory failure COMPARISONS: 07/29/2018 . FINDINGS: Heart: Normal. Mediastinum/Vessels: Normal. Lungs/Pleural space: The lungs are hyperinflated. There are no discrete infiltrates or effusions.. Bony thorax: No acute osseous abnormality. Life support devices: The ET tube and NG tube appear in good position.. IMPRESSION: Hyperinflation. No acute infiltrates or congestion since the previous study.. This document is electronically signed by Carlos Vargas MD., July 30 2018 03:33:22 AM ET
[2018-07-30] MEDS: PULMICORT IH SCH ×2 (07:20→19:21)
[2018-07-30] MEDS: BROVANA NEBU IH SCH ×2 (07:20→19:21)
--- NOTE | 2018-07-30 08:19 | Progress Note ---
Assessment and Plan Assessment and plan: Acute on chronic resp failure due to COPD exacerbation and pneumonia Initially was on BIPAP, however developed worse respiratory failure therefore intubated, put on vent, transferred to ICU Pulmonology following COPD exacerbation solu-medrol, Duoneb Sepsis secondary to pneumonia. Blood cultures drawn Levaquin Pneumponia right upper lobe seen on CT Chest levaquin Hypertension Monitor BP Full code status Hopefully extubate soon. History Interval history: patient presented with shortness of breath, wheezing was on BIPAP on Tele On 07/27 had worse resp distress, intubated put on ventilator transfered to ICU Hospitalist Physical - Physical exam Narrative exam: GEN: Not in acute distress, Intubated HEENT: Normocephalic, atraumatic, Neck: supple, No JVD Lungs: Bilateral rhonchi, wheeze Heart:S1 and S2 regular, no murmurs, rubs or gallop, Abd:soft, non tender, non distended, normal bowel sounds Ext: No edema, no clubbing or cyanosis Neuro: Intubated, sedated - Constitutional Vitals: Temp Pulse Resp BP Pulse Ox 97.9 F 63 18 125/76 99 07/30/18 03:05 07/30/18 08:00 07/30/18 07:20 07/30/18 07:15 07/30/18 08:00 General appearance: Present: no acute distress, other (on BiPAP) Results - Labs CBC & Chem 7: 07/29/18 05:00 07/29/18 05:00 Labs: Laboratory Last Values WBC 7.1 K/mm3 (4.5-11.0) 07/29/18 05:00 RBC 3.73 M/mm3 (3.65-5.03) 07/29/18 05:00 Hgb 11.0 gm/dl (10.1-14.3) 07/29/18 05:00 Hct 33.2 % (30.3-42.9) 07/29/18 05:00 MCV 89 fl (79-97) 07/29/18 05:00 MCH 29 pg (28-32) 07/29/18 05:00 MCHC 33 % (30-34) 07/29/18 05:00 RDW 14.4 % (13.2-15.2) 07/29/18 05:00 Plt Count 187 K/mm3 (140-440) 07/29/18 05:00 Lymph % (Auto) 7.5 % (13.4-35.0) L 07/26/18 19:41 Atkinson % (Auto) 6.5 % (0.0-7.3) 07/26/18 19:41 Eos % (Auto) 0.1 % (0.0-4.3) 07/26/18 19:41 Baso % (Auto) 0.4 % (0.0-1.8) 07/26/18 19:41 Lymph # 1.0 K/mm3 (1.2-5.4) L 07/26/18 19:41 Atkinson # 0.8 K/mm3 (0.0-0.8) 07/26/18 19:41 Eos # 0.0 K/mm3 (0.0-0.4) 07/26/18 19:41 Baso # 0.0 K/mm3 (0.0-0.1) 07/26/18 19:41 Seg Neutrophils % 85.5 % (40.0-70.0) H 07/26/18 19:41 Seg Neutrophils # 11.1 K/mm3 (1.8-7.7) H 07/26/18 19:41 D-Dimer 290.28 ng/mlDDU (0-234) H 07/26/18 19:41 POC ABG pH 7.293 (7.35-7.45) L 07/30/18 03:51 POC ABG pCO2 68.1 (35-45) H 07/30/18 03:51 POC ABG pO2 85 (80-105) 07/30/18 03:51 POC ABG HCO3 33.0 07/30/18 03:51 POC ABG Total CO2 35 07/30/18 03:51 POC ABG O2 Sat 95 07/30/18 03:51 POC ABG Base Excess 6 07/30/18 03:51 FiO2 30 % 07/30/18 03:51 Sodium 143 mmol/L (137-145) 07/29/18 05:00 Potassium 4.0 mmol/L (3.6-5.0) 07/29/18 05:00 Chloride 98.1 mmol/L (98-107) 07/29/18 05:00 Carbon Dioxide 31 mmol/L (22-30) H 07/29/18 05:00 Anion Gap 18 mmol/L 07/29/18 05:00 BUN 25 mg/dL (7-17) H 07/29/18 05:00 Creatinine 1.1 mg/dL (0.7-1.2) 07/29/18 05:00 Estimated GFR > 60 ml/min 07/29/18 05:00 BUN/Creatinine Ratio 23 % 07/29/18 05:00 Glucose 204 mg/dL (65-100) H 07/29/18 05:00 POC Glucose 278 (70-105) H 07/30/18 05:01 Hemoglobin A1c 5.6 % (4-6) 07/27/18 02:50 Lactic Acid 1.60 mmol/L (0.7-2.0) 07/28/18 19:08 Calcium 9.1 mg/dL (8.4-10.2) 07/29/18 05:00 Phosphorus 2.60 mg/dL (2.5-4.5) 07/28/18 15:03 Magnesium 2.30 mg/dL (1.7-2.3) 07/28/18 15:03 Total Bilirubin 0.20 mg/dL (0.1-1.2) 07/27/18 02:50 AST 21 units/L (5-40) 07/27/18 02:50 ALT 25 units/L (7-56) 07/27/18 02:50 Alkaline Phosphatase 50 units/L (35-129) 07/27/18 02:50 Total Creatine Kinase 134 units/L (30-135) 07/26/18 19:41 Troponin T < 0.010 ng/mL (0.00-0.029) 07/26/18 19:41 Total Protein 7.2 g/dL (6.3-8.2) 07/27/18 02:50 Albumin 4.6 g/dL (3.9-5) 07/27/18 02:50 Albumin/Globulin Ratio 1.8 % 07/27/18 02:50 Free T4 0.96 ng/dL (0.76-1.46) 07/27/18 13:43 Influenza A (Rapid) Negative (Negative) 07/28/18 03:50 Influenza B (Rapid) Negative (Negative) 07/28/18 03:50 Nutrition/Malnutrition Assess - Dietary Evaluation Nutrition/Malnutrition Findings: Nutrition Notes Start: 07/28/18 11:58 Freq: Status: Active Protocol: Document 07/29/18 11:27 CP (Rec: 07/29/18 11:31 CP [id number]) Co-Sign 07/29/18 11:27 LP Nutrition Notes Need for Assessment generated from: MD Order Initial or Follow up Assessment Current Diagnosis COPD Sepsis Hypertension Respiratory Failure Other Pertinent Diagnosis Pneumonia, hypercalcemia, DVT prophylaxis Current Diet NPO Labs/Tests B Pertinent Medications Insulin Solu-medrol Height 5 ft 4 in Weight 90 kg [place] Body Weight (kg) 54.54 BMI 34.0 Weight Status Obese Subjective/Other Information MD consult for TF as discussed in rounds. Percent of energy/protein needs met: 0%/0% Burn Absent Trauma Absent #1 Nutrition Diagnosis Inadequate oral intake Diagnosis Progress(for reassessment Continues documentation) Is patient on ventilator? Yes Is Patient Ambulatory and/or Out of Bed No REE-([facility]-confined to bed) [phone] Calculation Used for Recommendations [facility] Additional Notes Pro: 109 g (2g/kg IBW) Fluid: 1mL/kcal Nutrition Intervention Change Diet Order: TF to start Nutrition Support: Osmolite 1.5 at 50 mL/hr. Water flush 150 q4h. Kcal 1,800 Protein (gm) 75 Fluid (mL) 1,200 Goal #1 TF to start Anticipated Discharge Needs: Unable to determine at this time Follow-Up By: 08/01/18 Additional Comments F/U: TF to start
--- NOTE | 2018-07-30 08:31 | Progress Note ---
Assessment and Plan 63 y/o female smoker, admitted with acute on chronic respiratory failure secondary to COPD exacerbation. 1. Continue steroids at 60 q6 2. Continue BID pulmicort and brovana 3. Smoking cessation 4. Agree with q4 duoneb treatments 5. Stop IVF's. One time dose of lasix 20 today 6. Will reasess for SBT tomorrow 7. Check triglyceride level CCT 31 minutes. Subjective Date of service: 07/30/18 Interval history: No acute events. Still with diffuse wheezes. Hypercapnic this am so rate increased on vent. Peak Pressures are ok. Family not present at bedside. Pos itive now for the last 48 hours. Objective Vital Signs - 12hr 07/29/18 07/29/18 07/29/18 20:30 20:45 21:00 Temperature Pulse Rate 97 H 101 H 98 H Pulse Rate [ Anterior Bilateral Throughout] Pulse Rate [ Bilateral] Pulse Rate [ Right Dorsalis Pedis] Respiratory 15 17 18 Rate Respiratory Rate [Anterior Bilateral Throughout] Respiratory Rate [Bilateral ] Blood Pressure 149/85 152/88 163/78 O2 Sat by Pulse 97 96 Oximetry 07/29/18 07/29/18 07/29/18 21:15 21:30 21:31 Temperature Pulse Rate 104 H 102 H Pulse Rate [ Anterior Bilateral Throughout] Pulse Rate [ Bilateral] Pulse Rate [ Right Dorsalis Pedis] Respiratory 17 18 24 Rate Respiratory Rate [Anterior Bilateral Throughout] Respiratory Rate [Bilateral ] Blood Pressure 168/88 159/84 O2 Sat by Pulse 94 97 Oximetry 07/29/18 07/29/18 07/29/18 21:45 22:00 22:15 Temperature Pulse Rate 97 H 90 94 H Pulse Rate [ Anterior Bilateral Throughout] Pulse Rate [ Bilateral] Pulse Rate [ Right Dorsalis Pedis] Respiratory 18 16 18 Rate Respiratory Rate [Anterior Bilateral Throughout] Respiratory Rate [Bilateral ] Blood Pressure 149/89 141/77 145/81 O2 Sat by Pulse 98 99 99 Oximetry 07/29/18 07/29/18 07/29/18 22:30 22:45 22:56 Temperature Pulse Rate 104 H 87 129 H Pulse Rate [ Anterior Bilateral Throughout] Pulse Rate [ Bilateral] Pulse Rate [ Right Dorsalis Pedis] Respiratory 19 18 Rate Respiratory Rate [Anterior Bilateral Throughout] Respiratory Rate [Bilateral ] Blood Pressure 126/77 134/81 134/81 O2 Sat by Pulse 99 99 99 Oximetry 07/29/18 07/29/18 07/29/18 23:01 23:05 23:15 Temperature Pulse Rate 88 100 H Pulse Rate [ 114 H Anterior Bilateral Throughout] Pulse Rate [ Bilateral] Pulse Rate [ Right Dorsalis Pedis] Respiratory 18 17 Rate Respiratory 18 Rate [Anterior Bilateral Throughout] Respiratory Rate [Bilateral ] Blood Pressure 114/75 118/79 O2 Sat by Pulse 99 99 Oximetry 07/29/18 07/29/18 07/29/18 23:20 23:30 23:38 Temperature 98.6 F Pulse Rate 89 Pulse Rate [ 113 H Anterior Bilateral Throughout] Pulse Rate [ Bilateral] Pulse Rate [ Right Dorsalis Pedis] Respiratory 18 Rate Respiratory 18 Rate [Anterior Bilateral Throughout] Respiratory Rate [Bilateral ] Blood Pressure 137/77 O2 Sat by Pulse 97 Oximetry 07/29/18 07/30/18 07/30/18 23:45 00:00 00:14 Temperature Pulse Rate 86 98 H 95 H Pulse Rate [ Anterior Bilateral Throughout] Pulse Rate [ Bilateral] Pulse Rate [ 98 H Right Dorsalis Pedis] Respiratory 17 15 Rate Respiratory Rate [Anterior Bilateral Throughout] Respiratory Rate [Bilateral ] Blood Pressure 148/82 144/90 144/90 O2 Sat by Pulse 100 98 Oximetry 07/30/18 07/30/18 07/30/18 00:15 00:30 00:45 Temperature Pulse Rate 97 H 98 H 91 H Pulse Rate [ Anterior Bilateral Throughout] Pulse Rate [ Bilateral] Pulse Rate [ Right Dorsalis Pedis] Respiratory 17 18 17 Rate Respiratory Rate [Anterior Bilateral Throughout] Respiratory Rate [Bilateral ] Blood Pressure 148/94 158/91 149/82 O2 Sat by Pulse 96 95 96 Oximetry 07/30/18 07/30/18 07/30/18 01:00 01:15 01:31 Temperature Pulse Rate 85 93 H 80 Pulse Rate [ Anterior Bilateral Throughout] Pulse Rate [ Bilateral] Pulse Rate [ Right Dorsalis Pedis] Respiratory 15 15 14 Rate Respiratory Rate [Anterior Bilateral Throughout] Respiratory Rate [Bilateral ] Blood Pressure 140/73 159/83 125/85 O2 Sat by Pulse 96 95 95 Oximetry 07/30/18 07/30/18 07/30/18 01:45 02:00 02:15 Temperature Pulse Rate 78 88 86 Pulse Rate [ Anterior Bilateral Throughout] Pulse Rate [ Bilateral] Pulse Rate [ Right Dorsalis Pedis] Respiratory 13 12 15 Rate Respiratory Rate [Anterior Bilateral Throughout] Respiratory Rate [Bilateral ] Blood Pressure 120/83 120/83 155/91 O2 Sat by Pulse 95 96 95 Oximetry 07/30/18 07/30/18 07/30/18 02:30 02:45 03:00 Temperature Pulse Rate 82 88 104 H Pulse Rate [ Anterior Bilateral Throughout] Pulse Rate [ Bilateral] Pulse Rate [ Right Dorsalis Pedis] Respiratory 15 16 18 Rate Respiratory Rate [Anterior Bilateral Throughout] Respiratory Rate [Bilateral ] Blood Pressure 137/76 136/77 136/79 O2 Sat by Pulse 97 95 96 Oximetry 07/30/18 07/30/18 07/30/18 03:03 03:05 03:15 Temperature 97.9 F Pulse Rate 105 H 95 H Pulse Rate [ 99 H 98 H Anterior Bilateral Throughout] Pulse Rate [ Bilateral] Pulse Rate [ Right Dorsalis Pedis] Respiratory 18 Rate Respiratory 18 18 Rate [Anterior Bilateral Throughout] Respiratory Rate [Bilateral ] Blood Pressure 136/79 140/83 O2 Sat by Pulse 95 96 Oximetry 07/30/18 07/30/18 07/30/18 03:30 03:45 04:00 Temperature Pulse Rate 96 H 96 H 92 H Pulse Rate [ Anterior Bilateral Throughout] Pulse Rate [ Bilateral] Pulse Rate [ 98 H Right Dorsalis Pedis] Respiratory 17 19 19 Rate Respiratory Rate [Anterior Bilateral Throughout] Respiratory Rate [Bilateral ] Blood Pressure 120/81 136/85 142/84 O2 Sat by Pulse 98 96 97 Oximetry 07/30/18 07/30/18 07/30/18 04:15 04:30 04:45 Temperature Pulse Rate 88 87 86 Pulse Rate [ Anterior Bilateral Throughout] Pulse Rate [ Bilateral] Pulse Rate [ Right Dorsalis Pedis] Respiratory 11 L 22 16 Rate Respiratory Rate [Anterior Bilateral Throughout] Respiratory Rate [Bilateral ] Blood Pressure 136/113 138/85 124/78 O2 Sat by Pulse 98 99 99 Oximetry 07/30/18 07/30/18 07/30/18 05:00 05:15 05:30 Temperature Pulse Rate 84 92 H 80 Pulse Rate [ Anterior Bilateral Throughout] Pulse Rate [ Bilateral] Pulse Rate [ Right Dorsalis Pedis] Respiratory 14 18 16 Rate Respiratory Rate [Anterior Bilateral Throughout] Respiratory Rate [Bilateral ] Blood Pressure 124/78 146/80 140/76 O2 Sat by Pulse 98 95 97 Oximetry 07/30/18 07/30/18 07/30/18 05:45 06:00 06:08 Temperature Pulse Rate 76 80 109 H Pulse Rate [ Anterior Bilateral Throughout] Pulse Rate [ Bilateral] Pulse Rate [ Right Dorsalis Pedis] Respiratory 14 22 Rate Respiratory Rate [Anterior Bilateral Throughout] Respiratory Rate [Bilateral ] Blood Pressure 141/92 118/75 134/65 O2 Sat by Pulse 95 98 Oximetry 07/30/18 07/30/18 07/30/18 06:14 06:15 06:30 Temperature Pulse Rate 71 77 Pulse Rate [ Anterior Bilateral Throughout] Pulse Rate [ Bilateral] Pulse Rate [ Right Dorsalis Pedis] Respiratory 22 22 22 Rate Respiratory Rate [Anterior Bilateral Throughout] Respiratory Rate [Bilateral ] Blood Pressure 128/79 119/77 O2 Sat by Pulse 98 98 Oximetry 07/30/18 07/30/18 07/30/18 06:45 07:00 07:15 Temperature Pulse Rate 75 68 63 Pulse Rate [ Anterior Bilateral Throughout] Pulse Rate [ Bilateral] Pulse Rate [ Right Dorsalis Pedis] Respiratory 22 22 22 Rate Respiratory Rate [Anterior Bilateral Throughout] Respiratory Rate [Bilateral ] Blood Pressure 114/78 115/74 125/76 O2 Sat by Pulse 99 99 99 Oximetry 07/30/18 07/30/18 07:20 08:00 Temperature Pulse Rate 63 Pulse Rate [ 99 H Anterior Bilateral Throughout] Pulse Rate [ 98 H Bilateral] Pulse Rate [ Right Dorsalis Pedis] Respiratory Rate Respiratory 18 Rate [Anterior Bilateral Throughout] Respiratory 18 Rate [Bilateral ] Blood Pressure O2 Sat by Pulse 99 Oximetry Constitutional: alert, appears uncomfortable Eyes: non-icteric ENT: other (Orally intubated and sedated. Critically ill on vent) Ascultation: Bilateral: diminished breath sounds, wheezes Percussion: Bilateral: not dull Cardiovascular: regular rate and rhythm (sinus tach) Gastrointestinal: tender, other (distended with some guarding) Neurologic: normal mental status CBC and BMP: 07/29/18 05:00 07/29/18 05:00 ABG, PT/INR, D-dimer: ABG POC ABG pH 7.293 (7.35-7.45) L 07/30/18 03:51 POC ABG pCO2 68.1 (35-45) H 07/30/18 03:51 POC ABG pO2 85 (80-105) 07/30/18 03:51 POC ABG HCO3 33.0 07/30/18 03:51 POC ABG Total CO2 35 07/30/18 03:51 POC ABG O2 Sat 95 07/30/18 03:51 PT/INR, D-dimer D-Dimer 290.28 ng/mlDDU (0-234) H 07/26/18 19:41 Abnormal lab findings: Abnormal Labs 07/26/18 07/26/18 07/26/18 19:41 19:41 19:41 WBC 13.0 H RBC Lymph % (Auto) 7.5 L Lymph # 1.0 L Seg Neutrophils % 85.5 H Seg Neutrophils # 11.1 H D-Dimer 290.28 H POC ABG pH POC ABG pCO2 POC ABG pO2 Sodium Chloride 91.9 L Carbon Dioxide 35 H BUN 23 H Glucose 179 H POC Glucose Lactic Acid Calcium 10.3 H Magnesium 2.90 H 07/26/18 07/26/18 07/27/18 20:58 23:24 02:50 WBC RBC Lymph % (Auto) Lymph # Seg Neutrophils % Seg Neutrophils # D-Dimer POC ABG pH 7.237 L 7.257 L POC ABG pCO2 83.7 H 78.4 H POC ABG pO2 110 H 52 L Sodium Chloride Carbon Dioxide BUN Glucose POC Glucose Lactic Acid 3.30 H* Calcium Magnesium 07/27/18 07/27/18 07/27/18 02:50 06:14 08:58 WBC RBC Lymph % (Auto) Lymph # Seg Neutrophils % Seg Neutrophils # D-Dimer POC ABG pH 7.269 L POC ABG pCO2 76.4 H POC ABG pO2 Sodium 136 L Chloride 91.4 L Carbon Dioxide 31 H BUN 22 H Glucose 312 H POC Glucose Lactic Acid 2.30 H* Calcium Magnesium 2.40 H 07/27/18 07/27/18 07/27/18 19:39 20:18 23:35 WBC RBC Lymph % (Auto) Lymph # Seg Neutrophils % Seg Neutrophils # D-Dimer POC ABG pH POC ABG pCO2 62.7 H POC ABG pO2 220 H Sodium Chloride Carbon Dioxide BUN Glucose POC Glucose 203 H 171 H Lactic Acid Calcium Magnesium 07/28/18 07/28/18 07/28/18 04:52 05:24 11:55 WBC RBC Lymph % (Auto) Lymph # Seg Neutrophils % Seg Neutrophils # D-Dimer POC ABG pH POC ABG pCO2 58.3 H POC ABG pO2 68 L Sodium Chloride Carbon Dioxide BUN Glucose POC Glucose 223 H 220 H Lactic Acid Calcium Magnesium 07/28/18 07/28/18 07/28/18 15:03 15:03 15:03 WBC RBC 3.54 L Lymph % (Auto) Lymph # Seg Neutrophils % Seg Neutrophils # D-Dimer POC ABG pH POC ABG pCO2 POC ABG pO2 Sodium Chloride 96.2 L Carbon Dioxide 36 H BUN 26 H Glucose 194 H POC Glucose Lactic Acid 2.20 H* Calcium Magnesium 07/28/18 07/28/18 07/29/18 16:01 18:23 00:02 WBC RBC Lymph % (Auto) Lymph # Seg Neutrophils % Seg Neutrophils # D-Dimer POC ABG pH 7.188 L POC ABG pCO2 72.5 H POC ABG pO2 67 L Sodium Chloride Carbon Dioxide BUN Glucose POC Glucose 197 H 210 H Lactic Acid Calcium Magnesium 07/29/18 07/29/18 07/29/18 05:00 05:08 06:09 WBC RBC Lymph % (Auto) Lymph # Seg Neutrophils % Seg Neutrophils # D-Dimer POC ABG pH POC ABG pCO2 59.3 H POC ABG pO2 Sodium Chloride Carbon Dioxide 31 H BUN 25 H Glucose 204 H POC Glucose 204 H Lactic Acid Calcium Magnesium 07/29/18 07/29/18 07/30/18 11:29 18:23 00:02 WBC RBC Lymph % (Auto) Lymph # Seg Neutrophils % Seg Neutrophils # D-Dimer POC ABG pH POC ABG pCO2 POC ABG pO2 Sodium Chloride Carbon Dioxide BUN Glucose POC Glucose 225 H 196 H 262 H Lactic Acid Calcium Magnesium 07/30/18 07/30/18 03:51 05:01 WBC RBC Lymph % (Auto) Lymph # Seg Neutrophils % Seg Neutrophils # D-Dimer POC ABG pH 7.293 L POC ABG pCO2 68.1 H POC ABG pO2 Sodium Chloride Carbon Dioxide BUN Glucose POC Glucose 278 H Lactic Acid Calcium Magnesium
[2018-07-30] MEDS: SODIUM CHLORIDE FLUSH SYRINGE 10 ML IV PRN ×2 (08:43→17:59)
[2018-07-30] MEDS ORDERED: LASIX IV ONE (09:00)
[2018-07-30 09:18] LABS: Hematocrit 31.8 % (30.3-42.9); Hemoglobin 10.5 gm/dl (10.1-14.3); Mean Corpuscular HGB Conc 33 % (30-34); Mean Corpuscular Volume 89 fl (79-97); Platelet Count 172 K/mm3 (140-440); Red Blood Count 3.59 M/mm3 (3.65-5.03); Red Cell Distribution Width 15.2 % (13.2-15.2)
[2018-07-30 09:27] LABS: BUN/Creatinine Ratio 28; Blood Urea Nitrogen 25 mg/dL (7-17); Calcium 9.1 mg/dL (8.4-10.2); Hemolysis Index 2
[2018-07-30] MEDS: LOVENOX SUB-Q SCH (09:48)
[2018-07-30] MEDS: PREVACID SOLUTAB FEEDTUBE SCH (09:48)
[2018-07-30] MEDS: HABITROL TD SCH (10:16)
[2018-07-30] MEDS: SODIUM CHLORIDE FLUSH SYRINGE 10 ML IV SCH ×2 (10:17→21:52)
[2018-07-31] MEDS: CARDIZEM PO SCH ×5 (00:10→23:32)
--- NOTE | 2018-07-31 03:00 | XRay Report ---
PROCEDURE: XR CHEST 1V AP TECHNIQUE: Chest radiograph single view. HISTORY: follow up respiratory failure COMPARISONS: 07/30/2018 . FINDINGS: Heart: Normal. Mediastinum/Vessels: Normal. Lungs/Pleural space: Normal. Bony thorax: No acute osseous abnormality. Life support devices: The ET tube and NG tube appear in good position.. IMPRESSION: No acute cardiopulmonary abnormality. Satisfactory position of ET tube and NG tube. This document is electronically signed by Carlos Vargas MD., July 31 2018 02:58:24 AM ET
[2018-07-31] MEDS: DUONEB *Not for PRN Use IH SCH ×6 (04:27→23:53)
[2018-07-31 04:54] LABS: Hematocrit 33.7 % (30.3-42.9); Mean Corpuscular HGB Conc 33 % (30-34); Mean Corpuscular Volume 89 fl (79-97); Platelet Count 183 K/mm3 (140-440); Red Cell Distribution Width 15.2 % (13.2-15.2)
[2018-07-31 05:30] LABS: BUN/Creatinine Ratio 34; Blood Urea Nitrogen 31 mg/dL (7-17); Calcium 9.3 mg/dL (8.4-10.2); Hemolysis Index 12
[2018-07-31] MEDS: DIPRIVAN 10 MG/ML 1,000 MG/100 ML BOTTLE IV SCH ×2 (06:21→08:29)
[2018-07-31] MEDS: SOLU-Medrol IV SCH ×4 (06:23→18:11)
[2018-07-31] MEDS: MORPHINE IV PRN ×3 (06:24→20:27)
[2018-07-31] MEDS: HumaLOG SUB-Q SCH ×5 (06:27→23:39)
[2018-07-31] MEDS: BROVANA NEBU IH SCH ×2 (07:39→20:39)
[2018-07-31] MEDS: PULMICORT IH SCH ×2 (07:39→20:39)
--- NOTE | 2018-07-31 08:23 | Progress Note ---
Assessment and Plan Assessment and plan: Acute on chronic resp failure due to COPD exacerbation and pneumonia Initially was on BIPAP, however developed worse respiratory failure therefore intubated, put on vent, transferred to ICU Pulmonology following Still intubated COPD exacerbation Cont solu-medrol, Duoneb Sepsis secondary to pneumonia. Blood cultures drawn Levaquin Pneumponia right upper lobe seen on CT Chest levaquin Hypertension Monitor BP Hyperglycemia, uncontrolled Increase Novolin 70/30 to 16 Units bid Full code status Hopefully extubate soon. History Interval history: patient presented with shortness of breath, wheezing was on BIPAP on Tele On 07/27 had worse resp distress, intubated put on ventilator transfered to ICU Still intubated Hospitalist Physical - Physical exam Narrative exam: GEN: Not in acute distress, Intubated HEENT: Normocephalic, atraumatic, Neck: supple, No JVD Lungs: Bilateral rhonchi, wheeze Heart:S1 and S2 regular, no murmurs, rubs or gallop, Abd:soft, non tender, non distended, normal bowel sounds Ext: No edema, no clubbing or cyanosis Neuro: Intubated, awake, ,moves all ext - Constitutional Vitals: Temp Pulse Resp BP Pulse Ox 97.8 F 81 22 133/65 100 07/31/18 03:13 07/31/18 08:13 07/31/18 08:13 07/31/18 07:36 07/31/18 07:36 General appearance: Present: no acute distress, other (on BiPAP) Results - Labs CBC & Chem 7: 07/31/18 04:39 07/31/18 04:39 Labs: Laboratory Last Values WBC 9.5 K/mm3 (4.5-11.0) 07/31/18 04:39 RBC 3.80 M/mm3 (3.65-5.03) 07/31/18 04:39 Hgb 11.0 gm/dl (10.1-14.3) 07/31/18 04:39 Hct 33.7 % (30.3-42.9) 07/31/18 04:39 MCV 89 fl (79-97) 07/31/18 04:39 MCH 29 pg (28-32) 07/31/18 04:39 MCHC 33 % (30-34) 07/31/18 04:39 RDW 15.2 % (13.2-15.2) 07/31/18 04:39 Plt Count 183 K/mm3 (140-440) 07/31/18 04:39 Lymph % (Auto) 7.5 % (13.4-35.0) L 07/26/18 19:41 [place] % (Auto) 6.5 % (0.0-7.3) 07/26/18 19:41 Eos % (Auto) 0.1 % (0.0-4.3) 07/26/18 19:41 Baso % (Auto) 0.4 % (0.0-1.8) 07/26/18 19:41 Lymph # 1.0 K/mm3 (1.2-5.4) L 07/26/18 19:41 [place] # 0.8 K/mm3 (0.0-0.8) 07/26/18 19:41 Eos # 0.0 K/mm3 (0.0-0.4) 07/26/18 19:41 Baso # 0.0 K/mm3 (0.0-0.1) 07/26/18 19:41 Seg Neutrophils % 85.5 % (40.0-70.0) H 07/26/18 19:41 Seg Neutrophils # 11.1 K/mm3 (1.8-7.7) H 07/26/18 19:41 D-Dimer 290.28 ng/mlDDU (0-234) H 07/26/18 19:41 POC ABG pH 7.293 (7.35-7.45) L 07/30/18 03:51 POC ABG pCO2 68.1 (35-45) H 07/30/18 03:51 POC ABG pO2 85 (80-105) 07/30/18 03:51 POC ABG HCO3 33.0 07/30/18 03:51 POC ABG Total CO2 35 07/30/18 03:51 POC ABG O2 Sat 95 07/30/18 03:51 POC ABG Base Excess 6 07/30/18 03:51 FiO2 30 % 07/30/18 03:51 Sodium 140 mmol/L (137-145) 07/31/18 04:39 Potassium 4.2 mmol/L (3.6-5.0) 07/31/18 04:39 Chloride 94.8 mmol/L (98-107) L 07/31/18 04:39 Carbon Dioxide 28 mmol/L (22-30) 07/31/18 04:39 Anion Gap 21 mmol/L 07/31/18 04:39 BUN 31 mg/dL (7-17) H 07/31/18 04:39 Creatinine 0.9 mg/dL (0.7-1.2) 07/31/18 04:39 Estimated GFR > 60 ml/min 07/31/18 04:39 BUN/Creatinine Ratio 34 % 07/31/18 04:39 Glucose 384 mg/dL (65-100) H 07/31/18 04:39 POC Glucose 300 (70-105) H 07/31/18 05:35 Hemoglobin A1c 5.6 % (4-6) 07/27/18 02:50 Lactic Acid 1.60 mmol/L (0.7-2.0) 07/28/18 19:08 Calcium 9.3 mg/dL (8.4-10.2) 07/31/18 04:39 Phosphorus 2.90 mg/dL (2.5-4.5) 07/31/18 04:39 Magnesium 2.80 mg/dL (1.7-2.3) H 07/31/18 04:39 Total Bilirubin 0.20 mg/dL (0.1-1.2) 07/27/18 02:50 AST 21 units/L (5-40) 07/27/18 02:50 ALT 25 units/L (7-56) 07/27/18 02:50 Alkaline Phosphatase 50 units/L (35-129) 07/27/18 02:50 Total Creatine Kinase 134 units/L (30-135) 07/26/18 19:41 Troponin T < 0.010 ng/mL (0.00-0.029) 07/26/18 19:41 Total Protein 7.2 g/dL (6.3-8.2) 07/27/18 02:50 Albumin 4.6 g/dL (3.9-5) 07/27/18 02:50 Albumin/Globulin Ratio 1.8 % 07/27/18 02:50 Triglycerides 207 mg/dL (2-149) H 07/30/18 16:13 Free T4 0.96 ng/dL (0.76-1.46) 07/27/18 13:43 Influenza A (Rapid) Negative (Negative) 07/28/18 03:50 Influenza B (Rapid) Negative (Negative) 07/28/18 03:50 Nutrition/Malnutrition Assess - Dietary Evaluation Nutrition/Malnutrition Findings: Nutrition Notes Start: 07/28/18 11:58 Freq: Status: Active Protocol: Document 07/29/18 11:27 CP (Rec: 07/29/18 11:31 CP [id number]) Co-Sign 07/29/18 11:27 LP Nutrition Notes Need for Assessment generated from: MD Order Initial or Follow up Assessment Current Diagnosis COPD Sepsis Hypertension Respiratory Failure Other Pertinent Diagnosis Pneumonia, hypercalcemia, DVT prophylaxis Current Diet NPO Labs/Tests B Pertinent Medications Insulin Solu-medrol Height 5 ft 4 in Weight 90 kg [place] Body Weight (kg) 54.54 BMI 34.0 Weight Status Obese Subjective/Other Information MD consult for TF as discussed in rounds. Percent of energy/protein needs met: 0%/0% Burn Absent Trauma Absent #1 Nutrition Diagnosis Inadequate oral intake Diagnosis Progress(for reassessment Continues documentation) Is patient on ventilator? Yes Is Patient Ambulatory and/or Out of Bed No REE-([facility]-confined to bed) 2677.238 Calculation Used for Recommendations [facility] Additional Notes Pro: 109 g (2g/kg IBW) Fluid: 1mL/kcal Nutrition Intervention Change Diet Order: TF to start Nutrition Support: Osmolite 1.5 at 50 mL/hr. Water flush 150 q4h. Kcal 1,800 Protein (gm) 75 Fluid (mL) 1,200 Goal #1 TF to start Anticipated Discharge Needs: Unable to determine at this time Follow-Up By: 08/01/18 Additional Comments F/U: TF to start
[2018-07-31] MEDS ORDERED: SODIUM BICARBONATE FEEDTUBE PRN (09:53)
[2018-07-31] MEDS ORDERED: SIMPLE SYRUP FEEDTUBE PRN ×2 (09:53)
[2018-07-31] MEDS ORDERED: PANCREAZE DR 10,500 UNIT FEEDTUBE PRN (09:53)
[2018-07-31] MEDS: PREVACID SOLUTAB FEEDTUBE SCH (10:07)
[2018-07-31] MEDS: HABITROL TD SCH (10:07)
[2018-07-31] MEDS: LOVENOX SUB-Q SCH (10:07)
[2018-07-31] MEDS: SODIUM CHLORIDE FLUSH SYRINGE 10 ML IV SCH ×2 (10:07→23:27)
[2018-07-31] MEDS ORDERED: LASIX IV NR (12:42)
--- NOTE | 2018-07-31 12:46 | Progress Note ---
Assessment and Plan 63 y/o female smoker, admitted with acute on chronic respiratory failure secondary to COPD exacerbation. 1. Continue steroids at 60 q6 2. Continue BID pulmicort and brovana 3. Smoking cessation 4. Agree with q4 duoneb treatments 5. Another dose of IV lasix today. 6. Attempt extubation today. CCT 31 minutes. Subjective Date of service: 07/31/18 Interval history: Awake and alert. Still on sedation. Brother at bedside. Wheezing still present but improved. Moving more air. Objective Vital Signs - 12hr 07/31/18 07/31/18 07/31/18 01:00 01:15 01:30 Temperature Pulse Rate 65 67 64 Pulse Rate [ Anterior Bilateral Throughout] Pulse Rate [ Bilateral] Pulse Rate [ From Monitor] Respiratory 22 22 22 Rate Respiratory Rate [Anterior Bilateral Throughout] Respiratory Rate [Bilateral ] Blood Pressure 118/73 115/73 115/67 O2 Sat by Pulse 99 99 99 Oximetry 07/31/18 07/31/18 07/31/18 01:45 02:00 02:15 Temperature Pulse Rate 62 63 59 L Pulse Rate [ Anterior Bilateral Throughout] Pulse Rate [ Bilateral] Pulse Rate [ From Monitor] Respiratory 22 22 22 Rate Respiratory Rate [Anterior Bilateral Throughout] Respiratory Rate [Bilateral ] Blood Pressure 127/70 115/69 114/72 O2 Sat by Pulse 99 99 99 Oximetry 07/31/18 07/31/18 07/31/18 02:30 02:45 03:00 Temperature Pulse Rate 63 71 79 Pulse Rate [ Anterior Bilateral Throughout] Pulse Rate [ Bilateral] Pulse Rate [ From Monitor] Respiratory 22 22 20 Rate Respiratory Rate [Anterior Bilateral Throughout] Respiratory Rate [Bilateral ] Blood Pressure 112/68 125/71 127/79 O2 Sat by Pulse 99 99 98 Oximetry 07/31/18 07/31/18 07/31/18 03:13 03:15 03:30 Temperature 97.8 F Pulse Rate 74 74 Pulse Rate [ Anterior Bilateral Throughout] Pulse Rate [ Bilateral] Pulse Rate [ From Monitor] Respiratory 18 18 Rate Respiratory Rate [Anterior Bilateral Throughout] Respiratory Rate [Bilateral ] Blood Pressure 111/78 134/78 O2 Sat by Pulse 98 99 Oximetry 07/31/18 07/31/18 07/31/18 03:44 03:45 04:00 Temperature Pulse Rate 74 72 86 Pulse Rate [ 76 Anterior Bilateral Throughout] Pulse Rate [ 74 Bilateral] Pulse Rate [ 72 From Monitor] Respiratory 19 18 Rate Respiratory 20 Rate [Anterior Bilateral Throughout] Respiratory 20 Rate [Bilateral ] Blood Pressure 131/70 111/78 155/62 O2 Sat by Pulse 98 98 97 Oximetry 07/31/18 07/31/18 07/31/18 04:15 04:30 04:45 Temperature Pulse Rate 85 80 84 Pulse Rate [ Anterior Bilateral Throughout] Pulse Rate [ Bilateral] Pulse Rate [ From Monitor] Respiratory 19 20 18 Rate Respiratory Rate [Anterior Bilateral Throughout] Respiratory Rate [Bilateral ] Blood Pressure 159/66 159/73 172/82 O2 Sat by Pulse 97 97 99 Oximetry 07/31/18 07/31/18 07/31/18 05:01 05:15 05:30 Temperature Pulse Rate 78 67 64 Pulse Rate [ Anterior Bilateral Throughout] Pulse Rate [ Bilateral] Pulse Rate [ From Monitor] Respiratory 15 22 22 Rate Respiratory Rate [Anterior Bilateral Throughout] Respiratory Rate [Bilateral ] Blood Pressure 132/64 137/69 132/69 O2 Sat by Pulse 99 99 99 Oximetry 07/31/18 07/31/18 07/31/18 05:45 06:00 06:15 Temperature Pulse Rate 71 69 73 Pulse Rate [ Anterior Bilateral Throughout] Pulse Rate [ Bilateral] Pulse Rate [ From Monitor] Respiratory 22 22 22 Rate Respiratory Rate [Anterior Bilateral Throughout] Respiratory Rate [Bilateral ] Blood Pressure 118/68 118/68 121/65 O2 Sat by Pulse 99 99 99 Oximetry 07/31/18 07/31/18 07/31/18 06:24 06:25 06:30 Temperature Pulse Rate 72 76 Pulse Rate [ Anterior Bilateral Throughout] Pulse Rate [ Bilateral] Pulse Rate [ From Monitor] Respiratory 25 H 18 19 Rate Respiratory Rate [Anterior Bilateral Throughout] Respiratory Rate [Bilateral ] Blood Pressure 121/65 140/66 O2 Sat by Pulse 99 Oximetry 07/31/18 07/31/18 07/31/18 06:45 07:00 07:15 Temperature Pulse Rate 70 71 67 Pulse Rate [ Anterior Bilateral Throughout] Pulse Rate [ Bilateral] Pulse Rate [ From Monitor] Respiratory 12 22 17 Rate Respiratory Rate [Anterior Bilateral Throughout] Respiratory Rate [Bilateral ] Blood Pressure 140/66 137/66 143/76 O2 Sat by Pulse 100 100 100 Oximetry 07/31/18 07/31/18 07/31/18 07:30 07:36 07:39 Temperature Pulse Rate 75 75 Pulse Rate [ Anterior Bilateral Throughout] Pulse Rate [ 67 Bilateral] Pulse Rate [ From Monitor] Respiratory 19 Rate Respiratory Rate [Anterior Bilateral Throughout] Respiratory 28 H Rate [Bilateral ] Blood Pressure 133/65 133/65 O2 Sat by Pulse 99 100 Oximetry 07/31/18 07/31/18 07/31/18 07:45 08:00 08:01 Temperature 98 F Pulse Rate 77 83 Pulse Rate [ Anterior Bilateral Throughout] Pulse Rate [ Bilateral] Pulse Rate [ 84 From Monitor] Respiratory 17 22 16 Rate Respiratory Rate [Anterior Bilateral Throughout] Respiratory Rate [Bilateral ] Blood Pressure 143/76 137/71 O2 Sat by Pulse 100 99 100 Oximetry 07/31/18 07/31/18 07/31/18 08:13 08:15 08:31 Temperature Pulse Rate 84 84 Pulse Rate [ Anterior Bilateral Throughout] Pulse Rate [ 81 Bilateral] Pulse Rate [ From Monitor] Respiratory 13 24 Rate Respiratory Rate [Anterior Bilateral Throughout] Respiratory 22 Rate [Bilateral ] Blood Pressure 127/79 127/79 O2 Sat by Pulse 98 98 Oximetry 07/31/18 07/31/18 12:11 12:13 Temperature Pulse Rate 89 Pulse Rate [ Anterior Bilateral Throughout] Pulse Rate [ 87 Bilateral] Pulse Rate [ From Monitor] Respiratory Rate Respiratory Rate [Anterior Bilateral Throughout] Respiratory 23 Rate [Bilateral ] Blood Pressure 173/66 O2 Sat by Pulse 98 Oximetry Constitutional: alert, appears uncomfortable Eyes: non-icteric ENT: other (Orally intubated and sedated. Critically ill on vent) Ascultation: Bilateral: diminished breath sounds, wheezes Percussion: Bilateral: not dull Cardiovascular: regular rate and rhythm (sinus tach) Gastrointestinal: tender, other (distended with some guarding) Neurologic: normal mental status CBC and BMP: 07/31/18 04:39 07/31/18 04:39 ABG, PT/INR, D-dimer: ABG POC ABG pH 7.293 (7.35-7.45) L 07/30/18 03:51 POC ABG pCO2 68.1 (35-45) H 07/30/18 03:51 POC ABG pO2 85 (80-105) 07/30/18 03:51 POC ABG HCO3 33.0 07/30/18 03:51 POC ABG Total CO2 35 07/30/18 03:51 POC ABG O2 Sat 95 07/30/18 03:51 PT/INR, D-dimer D-Dimer 290.28 ng/mlDDU (0-234) H 07/26/18 19:41 Abnormal lab findings: Abnormal Labs 07/26/18 07/26/18 07/26/18 19:41 19:41 19:41 WBC 13.0 H RBC Lymph % (Auto) 7.5 L Lymph # 1.0 L Seg Neutrophils % 85.5 H Seg Neutrophils # 11.1 H D-Dimer 290.28 H POC ABG pH POC ABG pCO2 POC ABG pO2 Sodium Chloride 91.9 L Carbon Dioxide 35 H BUN 23 H Glucose 179 H POC Glucose Lactic Acid Calcium 10.3 H Magnesium 2.90 H Triglycerides 07/26/18 07/26/18 07/27/18 20:58 23:24 02:50 WBC RBC Lymph % (Auto) Lymph # Seg Neutrophils % Seg Neutrophils # D-Dimer POC ABG pH 7.237 L 7.257 L POC ABG pCO2 83.7 H 78.4 H POC ABG pO2 110 H 52 L Sodium Chloride Carbon Dioxide BUN Glucose POC Glucose Lactic Acid 3.30 H* Calcium Magnesium Triglycerides 07/27/18 07/27/18 07/27/18 02:50 06:14 08:58 WBC RBC Lymph % (Auto) Lymph # Seg Neutrophils % Seg Neutrophils # D-Dimer POC ABG pH 7.269 L POC ABG pCO2 76.4 H POC ABG pO2 Sodium 136 L Chloride 91.4 L Carbon Dioxide 31 H BUN 22 H Glucose 312 H POC Glucose Lactic Acid 2.30 H* Calcium Magnesium 2.40 H Triglycerides 07/27/18 07/27/18 07/27/18 19:39 20:18 23:35 WBC RBC Lymph % (Auto) Lymph # Seg Neutrophils % Seg Neutrophils # D-Dimer POC ABG pH POC ABG pCO2 62.7 H POC ABG pO2 220 H Sodium Chloride Carbon Dioxide BUN Glucose POC Glucose 203 H 171 H Lactic Acid Calcium Magnesium Triglycerides 07/28/18 07/28/18 07/28/18 04:52 05:24 11:55 WBC RBC Lymph % (Auto) Lymph # Seg Neutrophils % Seg Neutrophils # D-Dimer POC ABG pH POC ABG pCO2 58.3 H POC ABG pO2 68 L Sodium Chloride Carbon Dioxide BUN Glucose POC Glucose 223 H 220 H Lactic Acid Calcium Magnesium Triglycerides 07/28/18 07/28/18 07/28/18 15:03 15:03 15:03 WBC RBC 3.54 L Lymph % (Auto) Lymph # Seg Neutrophils % Seg Neutrophils # D-Dimer POC ABG pH POC ABG pCO2 POC ABG pO2 Sodium Chloride 96.2 L Carbon Dioxide 36 H BUN 26 H Glucose 194 H POC Glucose Lactic Acid 2.20 H* Calcium Magnesium Triglycerides 07/28/18 07/28/18 07/29/18 16:01 18:23 00:02 WBC RBC Lymph % (Auto) Lymph # Seg Neutrophils % Seg Neutrophils # D-Dimer POC ABG pH 7.188 L POC ABG pCO2 72.5 H POC ABG pO2 67 L Sodium Chloride Carbon Dioxide BUN Glucose POC Glucose 197 H 210 H Lactic Acid Calcium Magnesium Triglycerides 07/29/18 07/29/18 07/29/18 05:00 05:08 06:09 WBC RBC Lymph % (Auto) Lymph # Seg Neutrophils % Seg Neutrophils # D-Dimer POC ABG pH POC ABG pCO2 59.3 H POC ABG pO2 Sodium Chloride Carbon Dioxide 31 H BUN 25 H Glucose 204 H POC Glucose 204 H Lactic Acid Calcium Magnesium Triglycerides 07/29/18 07/29/18 07/30/18 11:29 18:23 00:02 WBC RBC Lymph % (Auto) Lymph # Seg Neutrophils % Seg Neutrophils # D-Dimer POC ABG pH POC ABG pCO2 POC ABG pO2 Sodium Chloride Carbon Dioxide BUN Glucose POC Glucose 225 H 196 H 262 H Lactic Acid Calcium Magnesium Triglycerides 07/30/18 07/30/18 07/30/18 03:51 05:01 07:27 WBC RBC 3.59 L Lymph % (Auto) Lymph # Seg Neutrophils % Seg Neutrophils # D-Dimer POC ABG pH 7.293 L POC ABG pCO2 68.1 H POC ABG pO2 Sodium Chloride Carbon Dioxide BUN Glucose POC Glucose 278 H Lactic Acid Calcium Magnesium Triglycerides 07/30/18 07/30/18 07/30/18 07:27 12:19 16:13 WBC RBC Lymph % (Auto) Lymph # Seg Neutrophils % Seg Neutrophils # D-Dimer POC ABG pH POC ABG pCO2 POC ABG pO2 Sodium Chloride Carbon Dioxide BUN 25 H Glucose 316 H POC Glucose 331 H Lactic Acid Calcium Magnesium Triglycerides 207 H 07/30/18 07/30/18 07/31/18 17:38 23:53 04:39 WBC RBC Lymph % (Auto) Lymph # Seg Neutrophils % Seg Neutrophils # D-Dimer POC ABG pH POC ABG pCO2 POC ABG pO2 Sodium Chloride 94.8 L Carbon Dioxide BUN 31 H Glucose 384 H POC Glucose 315 H 358 H Lactic Acid Calcium Magnesium 2.80 H Triglycerides 07/31/18 07/31/18 05:35 12:30 WBC RBC Lymph % (Auto) Lymph # Seg Neutrophils % Seg Neutrophils # D-Dimer POC ABG pH POC ABG pCO2 POC ABG pO2 Sodium Chloride Carbon Dioxide BUN Glucose POC Glucose 300 H 259 H Lactic Acid Calcium Magnesium Triglycerides
[2018-07-31] MEDS: SODIUM CHLORIDE FLUSH SYRINGE 10 ML IV PRN ×5 (12:58→18:11)
[2018-07-31] MEDS: ATIVAN IV PRN ×3 (13:47→23:26)
--- NOTE | 2018-08-01 03:23 | XRay Report ---
PROCEDURE: XR CHEST 1V AP TECHNIQUE: Chest radiograph single view. HISTORY: follow up respiratory failure COMPARISONS: July 31, 2018 . FINDINGS: Heart: Normal. Mediastinum/Vessels: Normal. Lungs/Pleural space: Normal. Bony thorax: No acute osseous abnormality. Life support devices: None. IMPRESSION: No acute cardiopulmonary abnormality. This document is electronically signed by Kelsey Garner DO., August 01 2018 03:20:29 AM ET
[2018-08-01 04:07] LABS: Hematocrit 37.1 % (30.3-42.9); Hemoglobin 11.9 gm/dl (10.1-14.3); Mean Corpuscular HGB Conc 32 % (30-34); Mean Corpuscular Volume 87 fl (79-97); Platelet Count 249 K/mm3 (140-440); Red Blood Count 4.25 M/mm3 (3.65-5.03); Red Cell Distribution Width 14.8 % (13.2-15.2)
[2018-08-01 04:18] LABS: BUN/Creatinine Ratio 48; Blood Urea Nitrogen 38 mg/dL (7-17); Calcium 9.5 mg/dL (8.4-10.2); Hemolysis Index 30
[2018-08-01] MEDS: DUONEB *Not for PRN Use IH SCH ×6 (04:30→23:19)
[2018-08-01] MEDS: SOLU-Medrol IV SCH ×5 (05:06→17:45)
[2018-08-01] MEDS: CARDIZEM PO SCH ×3 (06:31→17:39)
[2018-08-01] MEDS: HumaLOG SUB-Q SCH ×3 (06:33→19:47)
[2018-08-01] MEDS: BROVANA NEBU IH SCH ×2 (07:09→19:32)
[2018-08-01] MEDS: PULMICORT IH SCH ×2 (07:09→19:32)
--- NOTE | 2018-08-01 09:24 | Progress Note ---
Assessment and Plan Assessment and plan: Patient is a 63-year-old -Thai female with history of asthma and COPD who presented to the ED on account of 1 day history of worsening shortness of breath, cough, diaphoresis, runny nose, headaches and lightheadedness. On arrival to the ED, patient was in respiratory distress and had to be placed on BiPAP and admitted to Tele. She was diagnosed with acute on estrogen failure secondary to COPD exacerbation and pneumonia. She was put on Levaquin and Solu- Medrol and DuoNeb. Despite management, respiratory failure became worse, rapid response called . ABG showed worsening respiratory failure so she was intubated, placed on vent transferred to ICU on 07/27/18. She improved on ventilator and was extubated 07/31/18. Less short of breath. Acute on chronic resp failure due to COPD exacerbation and pneumonia Initially was on BIPAP, however developed worse respiratory failure therefore intubated, put on vent, transferred to ICU, now extubated 07/31/18 Currently on high flow Oxygen COPD exacerbation Cont solu-medrol, Duoneb Sepsis secondary to pneumonia. Blood cultures: No growth Pneumponia right upper lobe seen on CT Chest levaquin Hypertension Monitor BP Hyperglycemia, uncontrolled Continue Novlin 70/30 to 16 Units bid No history of diabetes, A1C 5.6 DVT prophylaxis. Lovenox Full code status Stable to dc to [facility] History Interval history: patient presented with shortness of breath, wheezing was on BIPAP on Tele On 07/27 had worse resp distress, intubated put on ventilator transfered to ICU Now extubated 07/31/18 less shortness of breath Hospitalist Physical - Physical exam Narrative exam: GEN: Not in acute distress, on high flow Oxygen by NC HEENT: Normocephalic, atraumatic, Neck: supple, No JVD Lungs: Bilateral rhonchi, wheeze Heart:S1 and S2 regular, no murmurs, rubs or gallop, Abd:soft, non tender, non distended, normal bowel sounds Ext: No edema, no clubbing or cyanosis Neuro: AAO x 3,moves all ext Skin:No rash - Constitutional Vitals: Temp Pulse Resp BP Pulse Ox 98.2 F 94 H 22 121/89 100 08/01/18 03:21 08/01/18 08:15 08/01/18 08:15 08/01/18 08:15 08/01/18 08:15 General appearance: Present: no acute distress, other (on BiPAP) Results - Labs CBC & Chem 7: 08/01/18 03:19 08/01/18 03:19 Labs: Laboratory Last Values WBC 17.7 K/mm3 (4.5-11.0) H 08/01/18 03:19 RBC 4.25 M/mm3 (3.65-5.03) 08/01/18 03:19 Hgb 11.9 gm/dl (10.1-14.3) 08/01/18 03:19 Hct 37.1 % (30.3-42.9) 08/01/18 03:19 MCV 87 fl (79-97) 08/01/18 03:19 MCH 28 pg (28-32) 08/01/18 03: MCHC 32 % (30-34) 08/01/18 03:19 RDW 14.8 % (13.2-15.2) 08/01/18 03:19 Plt Count 249 K/mm3 (140-440) 08/01/18 03:19 Lymph % (Auto) 7.5 % (13.4-35.0) L 07/26/18 19:41 [place] % (Auto) 6.5 % (0.0-7.3) 07/26/18 19:41 Eos % (Auto) 0.1 % (0.0-4.3) 07/26/18 19:41 Baso % (Auto) 0.4 % (0.0-1.8) 07/26/18 19:41 Lymph # 1.0 K/mm3 (1.2-5.4) L 07/26/18 19:41 [place] # 0.8 K/mm3 (0.0-0.8) 07/26/18 19:41 Eos # 0.0 K/mm3 (0.0-0.4) 07/26/18 19:41 Baso # 0.0 K/mm3 (0.0-0.1) 07/26/18 19:41 Seg Neutrophils % 85.5 % (40.0-70.0) H 07/26/18 19:41 Seg Neutrophils # 11.1 K/mm3 (1.8-7.7) H 07/26/18 19:41 D-Dimer 290.28 ng/mlDDU (0-234) H 07/26/18 19:41 POC ABG pH 7.293 (7.35-7.45) L 07/30/18 03:51 POC ABG pCO2 68.1 (35-45) H 07/30/18 03:51 POC ABG pO2 85 (80-105) 07/30/18 03:51 POC ABG HCO3 33.0 07/30/18 03:51 POC ABG Total CO2 35 07/30/18 03:51 POC ABG O2 Sat 95 07/30/18 03:51 POC ABG Base Excess 6 07/30/18 03:51 FiO2 30 % 07/30/18 03:51 Sodium 144 mmol/L (137-145) 08/01/18 03:19 Potassium 5.1 mmol/L (3.6-5.0) H D 08/01/18 03:19 Chloride 95.8 mmol/L (98-107) L 08/01/18 03:19 Carbon Dioxide 38 mmol/L (22-30) H D 08/01/18 03:19 Anion Gap 15 mmol/L 08/01/18 03:19 BUN 38 mg/dL (7-17) H 08/01/18 03:19 Creatinine 0.8 mg/dL (0.7-1.2) 08/01/18 03:19 Estimated GFR > 60 ml/min 08/01/18 03:19 BUN/Creatinine Ratio 48 % 08/01/18 03:19 Glucose 116 mg/dL (65-100) H 08/01/18 03:19 POC Glucose 129 (70-105) H 08/01/18 06:08 Hemoglobin A1c 5.6 % (4-6) 07/27/18 02:50 Lactic Acid 1.60 mmol/L (0.7-2.0) 07/28/18 19:08 Calcium 9.5 mg/dL (8.4-10.2) 08/01/18 03:19 Phosphorus 2.90 mg/dL (2.5-4.5) 07/31/18 04:39 Magnesium 2.80 mg/dL (1.7-2.3) H 07/31/18 04:39 Total Bilirubin 0.20 mg/dL (0.1-1.2) 07/27/18 02:50 AST 21 units/L (5-40) 07/27/18 02:50 ALT 25 units/L (7-56) 07/27/18 02:50 Alkaline Phosphatase 50 units/L (35-129) 07/27/18 02:50 Total Creatine Kinase 134 units/L (30-135) 07/26/18 19:41 Troponin T < 0.010 ng/mL (0.00-0.029) 07/26/18 19:41 Total Protein 7.2 g/dL (6.3-8.2) 07/27/18 02:50 Albumin 4.6 g/dL (3.9-5) 07/27/18 02:50 Albumin/Globulin Ratio 1.8 % 07/27/18 02:50 Triglycerides 207 mg/dL (2-149) H 07/30/18 16:13 Free T4 0.96 ng/dL (0.76-1.46) 07/27/18 13:43 Influenza A (Rapid) Negative (Negative) 07/28/18 03:50 Influenza B (Rapid) Negative (Negative) 07/28/18 03:50 Nutrition/Malnutrition Assess - Dietary Evaluation Nutrition/Malnutrition Findings: Nutrition Notes Start: 07/28/18 11:58 Freq: Status: Active Protocol: Document 07/31/18 09:54 LP (Rec: 07/31/18 09:56 LP [id number]) Nutrition Notes Initial or Follow up Brief Note Subjective/Other Information RN concerned with BG levels. Pt on Solumedrol but will change to see if there is improvement Nutrition Intervention Nutrition Support: Change to Vital 1.2 at 60ml/hr Flush with 100ml q4h Kcal 1,728 Protein (gm) 108 Fluid (mL) 1,203 Goal #1 Meet at least 80% of kcal and protein needs Anticipated Discharge Needs: Unable to determine at this time Follow-Up By: 08/02/18 Additional Comments Follow for TF change, tolerance, BG levels
[2018-08-01] MEDS ORDERED: KIONEX PO ONE (10:00)
[2018-08-01] MEDS: PREVACID SOLUTAB FEEDTUBE SCH (10:14)
[2018-08-01] MEDS: LOVENOX SUB-Q SCH (10:14)
[2018-08-01] MEDS: SODIUM CHLORIDE FLUSH SYRINGE 10 ML IV SCH ×2 (10:20→22:55)
--- NOTE | 2018-08-01 10:49 | Progress Note ---
Assessment and Plan 63 y/o female smoker, admitted with acute on chronic respiratory failure secondary to COPD exacerbation. 1. Continue steroids at 60 q6, patient is going to be very long slow taper. May even need to think about LTACH 2. Continue BID pulmicort and brovana 3. Smoking cessation 4. Agree with q4 duoneb treatments 5. Another dose of IV lasix today. 6. Continue HFNC during the day and wean FiO2 for sats >88%. Bipap therapy at night and PRN. 7. Will transfer to step down for continued monitoring until oxygen requirement decreases more. Subjective Date of service: 08/01/18 Interval history: No acute events. Wore bipap last night. Currently on HFNC at 30 and 90%. Awake and alert. No family at bedside. Per patient feels better but is still wheezing. Objective Vital Signs - 12hr 07/31/18 07/31/18 07/31/18 23:01 23:08 23:15 Temperature 98 F Pulse Rate 102 H 102 H Pulse Rate [ Anterior Bilateral Throughout] Pulse Rate [ Bilateral] Respiratory 19 30 H Rate Respiratory Rate [Anterior Bilateral Throughout] Respiratory Rate [Bilateral ] Blood Pressure 192/102 156/81 O2 Sat by Pulse 100 100 Oximetry 07/31/18 07/31/18 07/31/18 23:31 23:32 23:45 Temperature Pulse Rate 120 H 99 H 93 H Pulse Rate [ Anterior Bilateral Throughout] Pulse Rate [ Bilateral] Respiratory 18 13 Rate Respiratory Rate [Anterior Bilateral Throughout] Respiratory Rate [Bilateral ] Blood Pressure 156/81 156/81 156/81 O2 Sat by Pulse 99 100 Oximetry 07/31/18 08/01/18 08/01/18 23:54 00:00 00:15 Temperature Pulse Rate 97 H 92 H 86 Pulse Rate [ Anterior Bilateral Throughout] Pulse Rate [ Bilateral] Respiratory 20 13 11 L Rate Respiratory Rate [Anterior Bilateral Throughout] Respiratory Rate [Bilateral ] Blood Pressure 156/81 152/86 152/86 O2 Sat by Pulse 98 99 99 Oximetry 08/01/18 08/01/18 08/01/18 00:31 00:45 00:50 Temperature Pulse Rate 85 82 83 Pulse Rate [ Anterior Bilateral Throughout] Pulse Rate [ Bilateral] Respiratory 11 L 11 L Rate Respiratory Rate [Anterior Bilateral Throughout] Respiratory Rate [Bilateral ] Blood Pressure 152/86 152/86 O2 Sat by Pulse 99 99 Oximetry 08/01/18 08/01/18 08/01/18 01:00 01:15 01:31 Temperature Pulse Rate 82 81 94 H Pulse Rate [ Anterior Bilateral Throughout] Pulse Rate [ Bilateral] Respiratory 12 11 L 13 Rate Respiratory Rate [Anterior Bilateral Throughout] Respiratory Rate [Bilateral ] Blood Pressure 135/87 152/86 152/86 O2 Sat by Pulse 99 100 99 Oximetry 08/01/18 08/01/18 08/01/18 01:45 02:01 02:15 Temperature Pulse Rate 93 H 93 H 104 H Pulse Rate [ Anterior Bilateral Throughout] Pulse Rate [ Bilateral] Respiratory 10 L 14 14 Rate Respiratory Rate [Anterior Bilateral Throughout] Respiratory Rate [Bilateral ] Blood Pressure 152/86 163/107 135/87 O2 Sat by Pulse 99 100 99 Oximetry 08/01/18 08/01/18 08/01/18 02:31 02:45 03:01 Temperature Pulse Rate 101 H 105 H 99 H Pulse Rate [ Anterior Bilateral Throughout] Pulse Rate [ Bilateral] Respiratory 16 19 21 Rate Respiratory Rate [Anterior Bilateral Throughout] Respiratory Rate [Bilateral ] Blood Pressure 135/87 163/107 163/107 O2 Sat by Pulse 100 100 100 Oximetry 08/01/18 08/01/18 08/01/18 03:15 03:21 03:31 Temperature 98.2 F Pulse Rate 97 H 96 H Pulse Rate [ Anterior Bilateral Throughout] Pulse Rate [ Bilateral] Respiratory 17 18 Rate Respiratory Rate [Anterior Bilateral Throughout] Respiratory Rate [Bilateral ] Blood Pressure 163/107 142/92 O2 Sat by Pulse 100 100 Oximetry 08/01/18 08/01/18 08/01/18 03:45 04:00 04:15 Temperature Pulse Rate 90 84 92 H Pulse Rate [ Anterior Bilateral Throughout] Pulse Rate [ Bilateral] Respiratory 12 11 L 11 L Rate Respiratory Rate [Anterior Bilateral Throughout] Respiratory Rate [Bilateral ] Blood Pressure 142/92 152/93 152/93 O2 Sat by Pulse 100 99 99 Oximetry 08/01/18 08/01/18 08/01/18 04:30 04:35 04:45 Temperature Pulse Rate 84 85 85 Pulse Rate [ 82 Anterior Bilateral Throughout] Pulse Rate [ Bilateral] Respiratory 11 L 12 Rate Respiratory 14 Rate [Anterior Bilateral Throughout] Respiratory Rate [Bilateral ] Blood Pressure 152/93 152/93 O2 Sat by Pulse 99 99 Oximetry 08/01/18 08/01/18 08/01/18 05:00 05:15 05:30 Temperature Pulse Rate 82 76 95 H Pulse Rate [ Anterior Bilateral Throughout] Pulse Rate [ Bilateral] Respiratory 12 11 L 16 Rate Respiratory Rate [Anterior Bilateral Throughout] Respiratory Rate [Bilateral ] Blood Pressure 156/86 156/86 156/86 O2 Sat by Pulse 99 100 100 Oximetry 08/01/18 08/01/18 08/01/18 05:45 06:00 06:15 Temperature Pulse Rate 82 95 H 105 H Pulse Rate [ Anterior Bilateral Throughout] Pulse Rate [ Bilateral] Respiratory 13 17 22 Rate Respiratory Rate [Anterior Bilateral Throughout] Respiratory Rate [Bilateral ] Blood Pressure 156/86 168/99 168/99 O2 Sat by Pulse 100 100 100 Oximetry 08/01/18 08/01/18 08/01/18 06:31 06:45 07:01 Temperature Pulse Rate 93 H 96 H 101 H Pulse Rate [ Anterior Bilateral Throughout] Pulse Rate [ Bilateral] Respiratory 24 21 22 Rate Respiratory Rate [Anterior Bilateral Throughout] Respiratory Rate [Bilateral ] Blood Pressure 168/99 168/99 190/100 O2 Sat by Pulse 100 99 99 Oximetry 08/01/18 08/01/18 08/01/18 07:12 07:15 07:31 Temperature Pulse Rate 96 H 99 H Pulse Rate [ 100 H Anterior Bilateral Throughout] Pulse Rate [ 103 H Bilateral] Respiratory 18 15 Rate Respiratory 26 H Rate [Anterior Bilateral Throughout] Respiratory 26 H Rate [Bilateral ] Blood Pressure 145/102 190/92 O2 Sat by Pulse 100 100 Oximetry 08/01/18 08/01/18 08/01/18 07:45 07:52 08:00 Temperature 97.8 F Pulse Rate 89 95 H Pulse Rate [ Anterior Bilateral Throughout] Pulse Rate [ Bilateral] Respiratory 17 Rate Respiratory Rate [Anterior Bilateral Throughout] Respiratory Rate [Bilateral ] Blood Pressure 190/92 O2 Sat by Pulse 100 99 Oximetry 08/01/18 08/01/18 08/01/18 08:01 08:15 10:34 Temperature Pulse Rate 98 H 94 H Pulse Rate [ Anterior Bilateral Throughout] Pulse Rate [ Bilateral] Respiratory 19 22 Rate Respiratory Rate [Anterior Bilateral Throughout] Respiratory Rate [Bilateral ] Blood Pressure 145/102 121/89 O2 Sat by Pulse 100 100 100 Oximetry Constitutional: alert, appears uncomfortable Eyes: non-icteric Ascultation: Bilateral: diminished breath sounds, wheezes Percussion: Bilateral: not dull Cardiovascular: regular rate and rhythm (sinus tach) Gastrointestinal: tender, other (distended with some guarding) Neurologic: normal mental status CBC and BMP: 08/01/18 03:19 08/01/18 03:19 ABG, PT/INR, D-dimer: ABG POC ABG pH 7.293 (7.35-7.45) L 07/30/18 03:51 POC ABG pCO2 68.1 (35-45) H 07/30/18 03:51 POC ABG pO2 85 (80-105) 07/30/18 03:51 POC ABG HCO3 33.0 07/30/18 03:51 POC ABG Total CO2 35 07/30/18 03:51 POC ABG O2 Sat 95 07/30/18 03:51 PT/INR, D-dimer D-Dimer 290.28 ng/mlDDU (0-234) H 07/26/18 19:41 Abnormal lab findings: Abnormal Labs 07/26/18 07/26/18 07/26/18 19:41 19:41 19:41 WBC 13.0 H RBC Lymph % (Auto) 7.5 L Lymph # 1.0 L Seg Neutrophils % 85.5 H Seg Neutrophils # 11.1 H D-Dimer 290.28 H POC ABG pH POC ABG pCO2 POC ABG pO2 Sodium Potassium Chloride 91.9 L Carbon Dioxide 35 H BUN 23 H Glucose 179 H POC Glucose Lactic Acid Calcium 10.3 H Magnesium 2.90 H Triglycerides 07/26/18 07/26/18 07/27/18 20:58 23:24 02:50 WBC RBC Lymph % (Auto) Lymph # Seg Neutrophils % Seg Neutrophils # D-Dimer POC ABG pH 7.237 L 7.257 L POC ABG pCO2 83.7 H 78.4 H POC ABG pO2 110 H 52 L Sodium Potassium Chloride Carbon Dioxide BUN Glucose POC Glucose Lactic Acid 3.30 H* Calcium Magnesium Triglycerides 07/27/18 07/27/18 07/27/18 02:50 06:14 08:58 WBC RBC Lymph % (Auto) Lymph # Seg Neutrophils % Seg Neutrophils # D-Dimer POC ABG pH 7.269 L POC ABG pCO2 76.4 H POC ABG pO2 Sodium 136 L Potassium Chloride 91.4 L Carbon Dioxide 31 H BUN 22 H Glucose 312 H POC Glucose Lactic Acid 2.30 H* Calcium Magnesium 2.40 H Triglycerides 07/27/18 07/27/18 07/27/18 19:39 20:18 23:35 WBC RBC Lymph % (Auto) Lymph # Seg Neutrophils % Seg Neutrophils # D-Dimer POC ABG pH POC ABG pCO2 62.7 H POC ABG pO2 220 H Sodium Potassium Chloride Carbon Dioxide BUN Glucose POC Glucose 203 H 171 H Lactic Acid Calcium Magnesium Triglycerides 07/28/18 07/28/18 07/28/18 04:52 05:24 11:55 WBC RBC Lymph % (Auto) Lymph # Seg Neutrophils % Seg Neutrophils # D-Dimer POC ABG pH POC ABG pCO2 58.3 H POC ABG pO2 68 L Sodium Potassium Chloride Carbon Dioxide BUN Glucose POC Glucose 223 H 220 H Lactic Acid Calcium Magnesium Triglycerides 07/28/18 07/28/18 07/28/18 15:03 15:03 15:03 WBC RBC 3.54 L Lymph % (Auto) Lymph # Seg Neutrophils % Seg Neutrophils # D-Dimer POC ABG pH POC ABG pCO2 POC ABG pO2 Sodium Potassium Chloride 96.2 L Carbon Dioxide 36 H BUN 26 H Glucose 194 H POC Glucose Lactic Acid 2.20 H* Calcium Magnesium Triglycerides 07/28/18 07/28/18 07/29/18 16:01 18:23 00:02 WBC RBC Lymph % (Auto) Lymph # Seg Neutrophils % Seg Neutrophils # D-Dimer POC ABG pH 7.188 L POC ABG pCO2 72.5 H POC ABG pO2 67 L Sodium Potassium Chloride Carbon Dioxide BUN Glucose POC Glucose 197 H 210 H Lactic Acid Calcium Magnesium Triglycerides 07/29/18 07/29/18 07/29/18 05:00 05:08 06:09 WBC RBC Lymph % (Auto) Lymph # Seg Neutrophils % Seg Neutrophils # D-Dimer POC ABG pH POC ABG pCO2 59.3 H POC ABG pO2 Sodium Potassium Chloride Carbon Dioxide 31 H BUN 25 H Glucose 204 H POC Glucose 204 H Lactic Acid Calcium Magnesium Triglycerides 07/29/18 07/29/18 07/30/18 11:29 18:23 00:02 WBC RBC Lymph % (Auto) Lymph # Seg Neutrophils % Seg Neutrophils # D-Dimer POC ABG pH POC ABG pCO2 POC ABG pO2 Sodium Potassium Chloride Carbon Dioxide BUN Glucose POC Glucose 225 H 196 H 262 H Lactic Acid Calcium Magnesium Triglycerides 07/30/18 07/30/18 07/30/18 03:51 05:01 07:27 WBC RBC 3.59 L Lymph % (Auto) Lymph # Seg Neutrophils % Seg Neutrophils # D-Dimer POC ABG pH 7.293 L POC ABG pCO2 68.1 H POC ABG pO2 Sodium Potassium Chloride Carbon Dioxide BUN Glucose POC Glucose 278 H Lactic Acid Calcium Magnesium Triglycerides 07/30/18 07/30/18 07/30/18 07:27 12:19 16:13 WBC RBC Lymph % (Auto) Lymph # Seg Neutrophils % Seg Neutrophils # D-Dimer POC ABG pH POC ABG pCO2 POC ABG pO2 Sodium Potassium Chloride Carbon Dioxide BUN 25 H Glucose 316 H POC Glucose 331 H Lactic Acid Calcium Magnesium Triglycerides 207 H 07/30/18 07/30/18 07/31/18 17:38 23:53 04:39 WBC RBC Lymph % (Auto) Lymph # Seg Neutrophils % Seg Neutrophils # D-Dimer POC ABG pH POC ABG pCO2 POC ABG pO2 Sodium Potassium Chloride 94.8 L Carbon Dioxide BUN 31 H Glucose 384 H POC Glucose 315 H 358 H Lactic Acid Calcium Magnesium 2.80 H Triglycerides 07/31/18 07/31/18 07/31/18 05:35 12:30 18:05 WBC RBC Lymph % (Auto) Lymph # Seg Neutrophils % Seg Neutrophils # D-Dimer POC ABG pH POC ABG pCO2 POC ABG pO2 Sodium Potassium Chloride Carbon Dioxide BUN Glucose POC Glucose 300 H 259 H 119 H Lactic Acid Calcium Magnesium Triglycerides 08/01/18 08/01/18 08/01/18 03:19 03:19 06:08 WBC 17.7 H RBC Lymph % (Auto) Lymph # Seg Neutrophils % Seg Neutrophils # D-Dimer POC ABG pH POC ABG pCO2 POC ABG pO2 Sodium Potassium 5.1 H D Chloride 95.8 L Carbon Dioxide 38 H D BUN 38 H Glucose 116 H POC Glucose 129 H Lactic Acid Calcium Magnesium Triglycerides
[2018-08-01] MEDS: ATIVAN IV PRN ×2 (11:39→20:26)
[2018-08-01] MEDS: HABITROL TD SCH (11:39)
--- NOTE | 2018-08-01 14:08 | XRay Report ---
PROCEDURE: XR ABDOMEN 1V AP TECHNIQUE: Abdominal radiograph, single view. HISTORY: feeding tube placement COMPARISONS: None . FINDINGS: Supine view of the abdomen was acquired. There is a nasogastric tube which terminates in th e gastric fundus. IMPRESSION: The nasogastric tube terminates in the gastric fundus This document is electronically signed by Moi Horowitz MD., July 29 2018 04:19:37 PM ET
[2018-08-01] MEDS: MORPHINE IV PRN ×2 (18:11→23:31)
[2018-08-02] MEDS: HumaLOG SUB-Q SCH ×4 (01:07→18:34)
[2018-08-02] MEDS: CARDIZEM PO SCH ×5 (01:15→23:29)
[2018-08-02] MEDS: SOLU-Medrol IV SCH ×4 (01:17→21:35)
[2018-08-02] MEDS: DUONEB *Not for PRN Use IH SCH ×5 (03:45→20:41)
[2018-08-02] MEDS: ATIVAN IV PRN ×2 (04:40→11:03)
[2018-08-02 05:17] LABS: Hematocrit 35.4 % (30.3-42.9); Hemoglobin 11.8 gm/dl (10.1-14.3); Mean Corpuscular HGB Conc 33 % (30-34); Mean Corpuscular Volume 87 fl (79-97); Platelet Count 250 K/mm3 (140-440); Red Blood Count 4.08 M/mm3 (3.65-5.03); Red Cell Distribution Width 14.3 % (13.2-15.2)
[2018-08-02 05:42] LABS: BUN/Creatinine Ratio 56; Blood Urea Nitrogen 39 mg/dL (7-17); Calcium 9.6 mg/dL (8.4-10.2); Hemolysis Index 4
[2018-08-02] MEDS: PULMICORT IH SCH ×2 (08:57→20:41)
[2018-08-02] MEDS: BROVANA NEBU IH SCH ×2 (08:57→20:41)
--- NOTE | 2018-08-02 09:41 | Progress Note ---
Assessment and Plan Assessment and plan: Patient is a 63-year-old -[place] female with history of asthma and COPD who presented to the ED on account of 1 day history of worsening shortness of breath, cough, diaphoresis, runny nose, headaches and lightheadedness. On arrival to the ED, patient was in respiratory distress and had to be placed on BiPAP and admitted to Tele. She was diagnosed with acute on estrogen failure secondary to COPD exacerbation and pneumonia. She was put on Levaquin and Solu- Medrol and DuoNeb. Despite management, respiratory failure became worse, rapid response called . ABG showed worsening respiratory failure so she was intubated, placed on vent transferred to ICU on 07/27/18. She improved on ventilator and was extubated 07/31/18. Less short of breath. Acute on chronic resp failure due to COPD exacerbation and pneumonia Initially was on BIPAP, however developed worse respiratory failure therefore intubated, put on vent, transferred to ICU, now extubated 07/31/18 Currently on high flow Oxygen Continue management per Pulmonary COPD exacerbation Cont solu-medrol, Duoneb Continue managment per Pulmonary. Agree to LTAC Sepsis secondary to pneumonia. Blood cultures: No growth Pneumponia right upper lobe seen on CT Chest levaquin- Complete 5-7 Days Hypertension Monitor BP Hyperglycemia, uncontrolled Continue Novlin 70/30 to 16 Units bid No history of diabetes, A1C 5.6 Tobacco Use disorder. Counselling provided for 15mins, patient verbalized understanding and states she will not smoke again DVT prophylaxis. Lovenox Full code status Dispo: Consult Case management for LTAC admit History Interval history: Patient seen and examined this am. She was admitted with Respiratory failure and placed on ventilator, now extubated to HFNC now at 45% FIO2. still with some increased work of breathing but able to converse intermittently. She states she is hungry and also will like to walk. Hospitalist Physical - Physical exam Narrative exam: GEN: Not in acute distress, on high flow Oxygen by NC, obese HEENT: Normocephalic, atraumatic, Mouth: Dry Neck: supple, No JVD Lungs: Bilateral rhonchi, wheezing, increased WOB, with accessory muscle use, but per staff improving. Heart:S1 and S2 regular, no murmurs, rubs or gallop, Abd:soft, non tender, non distended, normal bowel sounds Ext: No edema, no clubbing or cyanosis Neuro: AAO x 3,moves all ext Skin: No rash - Constitutional Vitals: Temp Pulse Resp BP Pulse Ox 97.7 F 102 H 17 138/69 97 08/02/18 08:00 08/02/18 09:10 08/02/18 09:10 08/02/18 08:30 08/02/18 08:45 General appearance: Present: no acute distress, other (on BiPAP) Results - Labs CBC & Chem 7: 08/02/18 05:08 08/02/18 05:08 Labs: Laboratory Last Values WBC 15.2 K/mm3 (4.5-11.0) H 08/02/18 05:08 RBC 4.08 M/mm3 (3.65-5.03) 08/02/18 05:08 Hgb 11.8 gm/dl (10.1-14.3) 08/02/18 05:08 Hct 35.4 % (30.3-42.9) 08/02/18 05:08 MCV 87 fl (79-97) 08/02/18 05:08 MCH 29 pg (28-32) 08/02/18 05:08 MCHC 33 % (30-34) 08/02/18 05:08 RDW 14.3 % (13.2-15.2) 08/02/18 05:08 Plt Count 250 K/mm3 (140-440) 08/02/18 05:08 Lymph % (Auto) 7.5 % (13.4-35.0) L 07/26/18 19:41 Grand % (Auto) 6.5 % (0.0-7.3) 07/26/18 19:41 Eos % (Auto) 0.1 % (0.0-4.3) 07/26/18 19:41 Baso % (Auto) 0.4 % (0.0-1.8) 07/26/18 19:41 Lymph # 1.0 K/mm3 (1.2-5.4) L 07/26/18 19:41 Grand # 0.8 K/mm3 (0.0-0.8) 07/26/18 19:41 Eos # 0.0 K/mm3 (0.0-0.4) 07/26/18 19:41 Baso # 0.0 K/mm3 (0.0-0.1) 07/26/18 19:41 Seg Neutrophils % 85.5 % (40.0-70.0) H 07/26/18 19:41 Seg Neutrophils # 11.1 K/mm3 (1.8-7.7) H 07/26/18 19:41 D-Dimer 290.28 ng/mlDDU (0-234) H 07/26/18 19:41 POC ABG pH 7.293 (7.35-7.45) L 07/30/18 03:51 POC ABG pCO2 68.1 (35-45) H 07/30/18 03:51 POC ABG pO2 85 (80-105) 07/30/18 03:51 POC ABG HCO3 33.0 07/30/18 03:51 POC ABG Total CO2 35 07/30/18 03:51 POC ABG O2 Sat 95 07/30/18 03:51 POC ABG Base Excess 6 07/30/18 03:51 FiO2 30 % 07/30/18 03:51 Sodium 143 mmol/L (137-145) 08/02/18 05:08 Potassium 4.7 mmol/L (3.6-5.0) 08/02/18 05:08 Chloride 94.7 mmol/L (98-107) L 08/02/18 05:08 Carbon Dioxide 40 mmol/L (22-30) H 08/02/18 05:08 Anion Gap 13 mmol/L 08/02/18 05:08 BUN 39 mg/dL (7-17) H 08/02/18 05:08 Creatinine 0.7 mg/dL (0.7-1.2) 08/02/18 05:08 Estimated GFR > 60 ml/min 08/02/18 05:08 BUN/Creatinine Ratio 56 % 08/02/18 05:08 Glucose 153 mg/dL (65-100) H 08/02/18 05:08 POC Glucose 158 (70-105) H 08/02/18 08:22 Hemoglobin A1c 5.6 % (4-6) 07/27/18 02:50 Lactic Acid 1.60 mmol/L (0.7-2.0) 07/28/18 19:08 Calcium 9.6 mg/dL (8.4-10.2) 08/02/18 05:08 Phosphorus 2.90 mg/dL (2.5-4.5) 07/31/18 04:39 Magnesium 2.80 mg/dL (1.7-2.3) H 07/31/18 04:39 Total Bilirubin 0.20 mg/dL (0.1-1.2) 07/27/18 02:50 AST 21 units/L (5-40) 07/27/18 02:50 ALT 25 units/L (7-56) 07/27/18 02:50 Alkaline Phosphatase 50 units/L (35-129) 07/27/18 02:50 Total Creatine Kinase 134 units/L (30-135) 07/26/18 19:41 Troponin T < 0.010 ng/mL (0.00-0.029) 07/26/18 19:41 Total Protein 7.2 g/dL (6.3-8.2) 07/27/18 02:50 Albumin 4.6 g/dL (3.9-5) 07/27/18 02:50 Albumin/Globulin Ratio 1.8 % 07/27/18 02:50 Triglycerides 207 mg/dL (2-149) H 07/30/18 16:13 Free T4 0.96 ng/dL (0.76-1.46) 07/27/18 13:43 Influenza A (Rapid) Negative (Negative) 07/28/18 03:50 Influenza B (Rapid) Negative (Negative) 07/28/18 03:50 - Imaging and Cardiology Chest x-ray: image reviewed (no acute pathology noted) Nutrition/Malnutrition Assess - Dietary Evaluation Nutrition/Malnutrition Findings: Nutrition Notes Start: 07/28/18 11:5 8 Freq: Status: Active Protocol: Document 07/31/18 09:54 LP (Rec: 07/31/18 09:56 LP [email or web address]) Nutrition Notes Initial or Follow up Brief Note Subjective/Other Information RN concerned with BG levels. Pt on Solumedrol but will change to see if there is improvement Nutrition Intervention Nutrition Support: Change to Vital 1.2 at 60ml/hr Flush with 100ml q4h Kcal 1,728 Protein (gm) 108 Fluid (mL) 1,203 Goal #1 Meet at least 80% of kcal and protein needs Anticipated Discharge Needs: Unable to determine at this time Follow-Up By: 08/02/18 Additional Comments Follow for TF change, tolerance, BG levels
[2018-08-02] MEDS: LOVENOX SUB-Q SCH (10:01)
[2018-08-02] MEDS: HABITROL TD SCH (10:01)
[2018-08-02] MEDS: PREVACID SOLUTAB FEEDTUBE SCH (10:02)
[2018-08-02] MEDS: SODIUM CHLORIDE FLUSH SYRINGE 10 ML IV SCH ×2 (10:02→21:36)
[2018-08-02] MEDS: SODIUM CHLORIDE FLUSH SYRINGE 10 ML IV PRN (11:03)
--- NOTE | 2018-08-02 11:04 | Progress Note ---
Assessment and Plan Acute on chronic resp failure due to COPD exacerbation and pneumonia COPD exacerbation Sepsis secondary to pneumonia. Blood cultures: neg Pneumonia right upper lobe seen on CT Chest Hypertension Hyperglycemia, uncontrolled Tobacco Use disorder. Rec Monitor abdominal distention, laxatives Taper HFO as tolerated. Currently 35 LPM FIO2 Continue nebs Complete ABX Will need LTAC for proper care, maintaining support and tobacco cessation. Subjective Date of service: 08/02/18 Principal diagnosis: ARF/MV,COPD exac Interval history: Some discomfort w HFO cannula Objective Vital Signs - 12hr 08/01/18 08/01/18 08/01/18 23:20 23:21 23:30 Temperature Pulse Rate 90 Pulse Rate [ Anterior Bilateral Throughout] Pulse Rate [ 90 95 H Bilateral] Pulse Rate [ From Monitor] Pulse Rate [ Right Dorsalis Pedis] Respiratory 18 Rate Respiratory Rate [Anterior Bilateral Throughout] Respiratory 15 18 Rate [Bilateral ] Blood Pressure 106/77 O2 Sat by Pulse 99 Oximetry 08/02/18 08/02/18 08/02/18 00:00 00:32 01:15 Temperature 97.6 F Pulse Rate 83 84 Pulse Rate [ Anterior Bilateral Throughout] Pulse Rate [ Bilateral] Pulse Rate [ From Monitor] Pulse Rate [ 83 Right Dorsalis Pedis] Respiratory Rate Respiratory Rate [Anterior Bilateral Throughout] Respiratory Rate [Bilateral ] Blood Pressure 109/66 O2 Sat by Pulse 99 Oximetry 08/02/18 08/02/18 08/02/18 01:24 01:30 02:00 Temperature Pulse Rate 88 85 74 Pulse Rate [ Anterior Bilateral Throughout] Pulse Rate [ Bilateral] Pulse Rate [ From Monitor] Pulse Rate [ Right Dorsalis Pedis] Respiratory 15 15 11 L Rate Respiratory Rate [Anterior Bilateral Throughout] Respiratory Rate [Bilateral ] Blood Pressure 109/66 125/65 O2 Sat by Pulse 100 95 Oximetry 08/02/18 08/02/18 08/02/18 02:30 03:00 03:30 Temperature Pulse Rate 77 84 83 Pulse Rate [ Anterior Bilateral Throughout] Pulse Rate [ Bilateral] Pulse Rate [ From Monitor] Pulse Rate [ Right Dorsalis Pedis] Respiratory 11 L 10 L 17 Rate Respiratory Rate [Anterior Bilateral Throughout] Respiratory Rate [Bilateral ] Blood Pressure 109/66 139/100 139/100 O2 Sat by Pulse 97 95 100 Oximetry 08/02/18 08/02/18 08/02/18 03:45 03:46 03:54 Temperature Pulse Rate 80 Pulse Rate [ Anterior Bilateral Throughout] Pulse Rate [ 80 96 H Bilateral] Pulse Rate [ From Monitor] Pulse Rate [ Right Dorsalis Pedis] Respiratory 18 Rate Respiratory Rate [Anterior Bilateral Throughout] Respiratory 14 22 Rate [Bilateral ] Blood Pressure 139/100 O2 Sat by Pulse 100 Oximetry 08/02/18 08/02/18 08/02/18 04:00 04:30 04:32 Temperature 97.4 F L Pulse Rate 102 H 105 H Pulse Rate [ Anterior Bilateral Throughout] Pulse Rate [ Bilateral] Pulse Rate [ From Monitor] Pulse Rate [ 102 H Right Dorsalis Pedis] Respiratory 20 18 Rate Respiratory Rate [Anterior Bilateral Throughout] Respiratory Rate [Bilateral ] Blood Pressure 136/109 139/100 O2 Sat by Pulse 100 99 Oximetry 08/02/18 08/02/18 08/02/18 05:00 05:01 05:30 Temperature Pulse Rate 103 H 102 H 133 H Pulse Rate [ Anterior Bilateral Throughout] Pulse Rate [ Bilateral] Pulse Rate [ From Monitor] Pulse Rate [ Right Dorsalis Pedis] Respiratory 16 18 Rate Respiratory Rate [Anterior Bilateral Throughout] Respiratory Rate [Bilateral ] Blood Pressure 136/103 136/103 136/103 O2 Sat by Pulse 97 99 Oximetry 08/02/18 08/02/18 08/02/18 06:00 06:30 07:00 Temperature Pulse Rate 89 86 83 Pulse Rate [ Anterior Bilateral Throughout] Pulse Rate [ Bilateral] Pulse Rate [ From Monitor] Pulse Rate [ Right Dorsalis Pedis] Respiratory 11 L 12 11 L Rate Respiratory Rate [Anterior Bilateral Throughout] Respiratory Rate [Bilateral ] Blood Pressure 129/86 129/86 127/65 O2 Sat by Pulse 94 98 96 Oximetry 08/02/18 08/02/18 08/02/18 07:30 08:00 08:30 Temperature 97.7 F Pulse Rate 79 96 H 92 H Pulse Rate [ Anterior Bilateral Throughout] Pulse Rate [ Bilateral] Pulse Rate [ 102 H From Monitor] Pulse Rate [ Right Dorsalis Pedis] Respiratory 12 11 L 17 Rate Respiratory Rate [Anterior Bilateral Throughout] Respiratory Rate [Bilateral ] Blood Pressure 127/65 138/69 138/69 O2 Sat by Pulse 98 95 100 Oximetry 08/02/18 08/02/18 08/02/18 08:45 08:47 09:00 Temperature Pulse Rate 105 H Pulse Rate [ Anterior Bilateral Throughout] Pulse Rate [ 109 H Bilateral] Pulse Rate [ From Monitor] Pulse Rate [ Right Dorsalis Pedis] Respiratory 16 Rate Respiratory Rate [Anterior Bilateral Throughout] Respiratory 21 Rate [Bilateral ] Blood Pressure 132/62 O2 Sat by Pulse 97 95 Oximetry 08/02/18 08/02/18 08/02/18 09:10 09:30 10:00 Temperature Pulse Rate 113 H 105 H Pulse Rate [ 102 H Anterior Bilateral Throughout] Pulse Rate [ Bilateral] Pulse Rate [ From Monitor] Pulse Rate [ Right Dorsalis Pedis] Respiratory 24 22 Rate Respiratory 17 Rate [Anterior Bilateral Throughout] Respiratory Rate [Bilateral ] Blood Pressure 132/62 132/101 O2 Sat by Pulse 97 96 Oximetry Constitutional: alert, appears uncomfortable Eyes: non-icteric Ascultation: Bilateral: clear, diminished breath sounds Percussion: Bilateral: not dull Cardiovascular: regular rate and rhythm (sinus tach) Gastrointestinal: normoactive bowel sounds, tender, other (distended ,no guarding) Integumentary: normal Neurologic: non-focal exam, pupils equal and round, CN II-XII normal, other (somnolent) CBC and BMP: 08/02/18 05:08 08/02/18 05:08 ABG, PT/INR, D-dimer: ABG POC ABG pH 7.293 (7.35-7.45) L 07/30/18 03:51 POC ABG pCO2 68.1 (35-45) H 07/30/18 03:51 POC ABG pO2 85 (80-105) 07/30/18 03:51 POC ABG HCO3 33.0 07/30/18 03:51 POC ABG Total CO2 35 07/30/18 03:51 POC ABG O2 Sat 95 07/30/18 03:51 PT/INR, D-dimer D-Dimer 290.28 ng/mlDDU (0-234) H 07/26/18 19:41 Abnormal lab findings: Abnormal Labs 07/26/18 07/26/18 07/26/18 19:41 19:41 19:41 WBC 13.0 H RBC Lymph % (Auto) 7.5 L Lymph # 1.0 L Seg Neutrophils % 85.5 H Seg Neutrophils # 11.1 H D-Dimer 290.28 H POC ABG pH POC ABG pCO2 POC ABG pO2 Sodium Potassium Chloride 91.9 L Carbon Dioxide 35 H BUN 23 H Glucose 179 H POC Glucose Lactic Acid Calcium 10.3 H Magnesium 2.90 H Triglycerides 07/26/18 07/26/18 07/27/18 20:58 23:24 02:50 WBC RBC Lymph % (Auto) Lymph # Seg Neutrophils % Seg Neutrophils # D-Dimer POC ABG pH 7.237 L 7.257 L POC ABG pCO2 83.7 H 78.4 H POC ABG pO2 110 H 52 L Sodium Potassium Chloride Carbon Dioxide BUN Glucose POC Glucose Lactic Acid 3.30 H* Calcium Magnesium Triglycerides 07/27/18 07/27/18 07/27/18 02:50 06:14 08:58 WBC RBC Lymph % (Auto) Lymph # Seg Neutrophils % Seg Neutrophils # D-Dimer POC ABG pH 7.269 L POC ABG pCO2 76.4 H POC ABG pO2 Sodium 136 L Potassium Chloride 91.4 L Carbon Dioxide 31 H BUN 22 H Glucose 312 H POC Glucose Lactic Acid 2.30 H* Calcium Magnesium 2.40 H Triglycerides 07/27/18 07/27/18 07/27/18 19:39 20:18 23:35 WBC RBC Lymph % (Auto) Lymph # Seg Neutrophils % Seg Neutrophils # D-Dimer POC ABG pH POC ABG pCO2 62.7 H POC ABG pO2 220 H Sodium Potassium Chloride Carbon Dioxide BUN Glucose POC Glucose 203 H 171 H Lactic Acid Calcium Magnesium Triglycerides 07/28/18 07/28/18 07/28/18 04:52 05:24 11:55 WBC RBC Lymph % (Auto) Lymph # Seg Neutrophils % Seg Neutrophils # D-Dimer POC ABG pH POC ABG pCO2 58.3 H POC ABG pO2 68 L Sodium Potassium Chloride Carbon Dioxide BUN Glucose POC Glucose 223 H 220 H Lactic Acid Calcium Magnesium Triglycerides 07/28/18 07/28/18 07/28/18 15:03 15:03 15:03 WBC RBC 3.54 L Lymph % (Auto) Lymph # Seg Neutrophils % Seg Neutrophils # D-Dimer POC ABG pH POC ABG pCO2 POC ABG pO2 Sodium Potassium Chloride 96.2 L Carbon Dioxide 36 H BUN 26 H Glucose 194 H POC Glucose Lactic Acid 2.20 H* Calcium Magnesium Triglycerides 07/28/18 07/28/18 07/29/18 16:01 18:23 00:02 WBC RBC Lymph % (Auto) Lymph # Seg Neutrophils % Seg Neutrophils # D-Dimer POC ABG pH 7.188 L POC ABG pCO2 72.5 H POC ABG pO2 67 L Sodium Potassium Chloride Carbon Dioxide BUN Glucose POC Glucose 197 H 210 H Lactic Acid Calcium Magnesium Triglycerides 07/29/18 07/29/18 07/29/18 05:00 05:08 06:09 WBC RBC Lymph % (Auto) Lymph # Seg Neutrophils % Seg Neutrophils # D-Dimer POC ABG pH POC ABG pCO2 59.3 H POC ABG pO2 Sodium Potassium Chloride Carbon Dioxide 31 H BUN 25 H Glucose 204 H POC Glucose 204 H Lactic Acid Calcium Magnesium Triglycerides 07/29/18 07/29/18 07/30/18 11:29 18:23 00:02 WBC RBC Lymph % (Auto) Lymph # Seg Neutrophils % Seg Neutrophils # D-Dimer POC ABG pH POC ABG pCO2 POC ABG pO2 Sodium Potassium Chloride Carbon Dioxide BUN Glucose POC Glucose 225 H 196 H 262 H Lactic Acid Calcium Magnesium Triglycerides 07/30/18 07/30/18 07/30/18 03:51 05:01 07:27 WBC RBC 3.59 L Lymph % (Auto) Lymph # Seg Neutrophils % Seg Neutrophils # D-Dimer POC ABG pH 7.293 L POC ABG pCO2 68.1 H POC ABG pO2 Sodium Potassium Chloride Carbon Dioxide BUN Glucose POC Glucose 278 H Lactic Acid Calcium Magnesium Triglycerides 07/30/18 07/30/18 07/30/18 07:27 12:19 16:13 WBC RBC Lymph % (Auto) Lymph # Seg Neutrophils % Seg Neutrophils # D-Dimer POC ABG pH POC ABG pCO2 POC ABG pO2 Sodium Potassium Chloride Carbon Dioxide BUN 25 H Glucose 316 H POC Glucose 331 H Lactic Acid Calcium Magnesium Triglycerides 207 H 07/30/18 07/30/18 07/31/18 17:38 23:53 04:39 WBC RBC Lymph % (Auto) Lymph # Seg Neutrophils % Seg Neutrophils # D-Dimer POC ABG pH POC ABG pCO2 POC ABG pO2 Sodium Potassium Chloride 94.8 L Carbon Dioxide BUN 31 H Glucose 384 H POC Glucose 315 H 358 H Lactic Acid Calcium Magnesium 2.80 H Triglycerides 07/31/18 07/31/18 07/31/18 05:35 12:30 18:05 WBC RBC Lymph % (Auto) Lymph # Seg Neutrophils % Seg Neutrophils # D-Dimer POC ABG pH POC ABG pCO2 POC ABG pO2 Sodium Potassium Chloride Carbon Dioxide BUN Glucose POC Glucose 300 H 259 H 119 H Lactic Acid Calcium Magnesium Triglycerides 08/01/18 08/01/18 08/01/18 03:19 03:19 06:08 WBC 17.7 H RBC Lymph % (Auto) Lymph # Seg Neutrophils % Seg Neutrophils # D-Dimer POC ABG pH POC ABG pCO2 POC ABG pO2 Sodium Potassium 5.1 H D Chloride 95.8 L Carbon Dioxide 38 H D BUN 38 H Glucose 116 H POC Glucose 129 H Lactic Acid Calcium Magnesium Triglycerides 08/01/18 08/01/18 08/02/18 11:49 17:21 00:16 WBC RBC Lymph % (Auto) Lymph # Seg Neutrophils % Seg Neutrophils # D-Dimer POC ABG pH POC ABG pCO2 POC ABG pO2 Sodium Potassium Chloride Carbon Dioxide BUN Glucose POC Glucose 329 H 108 H 141 H Lactic Acid Calcium Magnesium Triglycerides 08/02/18 08/02/18 08/02/18 04:39 05:08 05:08 WBC 15.2 H RBC Lymph % (Auto) Lymph # Seg Neutrophils % Seg Neutrophils # D-Dimer POC ABG pH POC ABG pCO2 POC ABG pO2 Sodium Potassium Chloride 94.7 L Carbon Dioxide 40 H BUN 39 H Glucose 153 H POC Glucose 138 H Lactic Acid Calcium Magnesium Triglycerides 08/02/18 08:22 WBC RBC Lymph % (Auto) Lymph # Seg Neutrophils % Seg Neutrophils # D-Dimer POC ABG pH POC ABG pCO2 POC ABG pO2 Sodium Potassium Chloride Carbon Dioxide BUN Glucose POC Glucose 158 H Lactic Acid Calcium Magnesium Triglycerides
[2018-08-02] MEDS ORDERED: HALDOL IM PRN (17:27)
[2018-08-02] MEDS: MORPHINE IV PRN (21:36)
[2018-08-03] MEDS: DUONEB *Not for PRN Use IH SCH ×7 (00:21→23:25)
[2018-08-03] MEDS: HumaLOG SUB-Q SCH ×3 (00:27→18:25)
[2018-08-03] MEDS: SOLU-Medrol IV SCH ×3 (00:30→18:28)
--- NOTE | 2018-08-03 08:10 | Progress Note ---
Assessment and Plan Assessment and plan: Patient is a 63-year-old -[place] female with history of asthma and COPD who presented to the ED on account of 1 day history of worsening shortness of breath, cough, diaphoresis, runny nose, headaches and lightheadedness. On arrival to the ED, patient was in respiratory distress and had to be placed on BiPAP and admitted to Tele. She was diagnosed with acute on chronic respiratory failure secondary to COPD exacerbation and pneumonia. She was put on Levaquin and Solu-Medrol and DuoNeb. Despite management, respiratory failure became worse, rapid response called . ABG showed worsening respiratory failure so she was intubated, placed on vent transferred to ICU on 07/27/18. She improved on ventilator and was extubated 07/31/18. Less short of breath. * Patient now on high flow oxygen and awaiting LTAC referral for slow continued wean. * Patient with intermittent anxiety leading to tachycardia in addition to severe deconditioning Acute on chronic resp failure due to COPD exacerbation and pneumonia Initially was on BIPAP, however developed worse respiratory failure therefore intubated, put on vent, transferred to ICU, now extubated 07/31/18 Currently on high flow Oxygen Continue management per Pulmonary COPD exacerbation Cont solu-medrol, Duoneb Continue managment per Pulmonary. Agree to LTAC Anxiety Disorder: Prn Haldol Sepsis secondary to pneumonia. Blood cultures: No growth Pneumponia right upper lobe seen on CT Chest levaquin- Complete 5-7 Days Total Hypertension Monitor BP Hyperglycemia, uncontrolled Continue Novlin 70/30 to 16 Units bid No history of diabetes, A1C 5.6 Deconditioning: PT/OT once o2 weaned to acceptable level Tobacco Use disorder. Counselling provided for 15mins, patient verbalized understanding and states she will not smoke again DVT prophylaxis. Lovenox Full code status Dispo: Consult Case management for LTAC admit History Interval history: Patient seen and examined this am. She was admitted with Respiratory failure and placed on ventilator, now extubated to HFNC now at 45% FIO2. more restful today. had some agitation overnight. Hospitalist Physical - Physical exam Narrative exam: GEN: Not in acute distress, on high flow Oxygen by NC, obese HEENT: Normocephalic, atraumatic, Mouth: Dry Neck: supple, No JVD Lungs: Bilateral rhonchi, wheezing, increased WOB, Heart:S1 and S2 regular, no murmurs, rubs or gallop, Abd:soft, non tender, non distended, normal bowel sounds Ext: No edema, no clubbing or cyanosis Neuro: AAO x 3,moves all ext Skin: No rash - Constitutional Vitals: Temp Pulse Resp BP Pulse Ox 97.7 F 86 17 108/57 100 08/03/18 03:31 08/03/18 03:16 08/03/18 03:16 08/03/18 03:00 08/03/18 03:10 General appearance: Present: no acute distress, other (on BiPAP) Results - Labs CBC & Chem 7: 08/02/18 05:08 08/03/18 04:23 Labs: Laboratory Last Values WBC 15.2 K/mm3 (4.5-11.0) H 08/02/18 05:08 RBC 4.08 M/mm3 (3.65-5.03) 08/02/18 05:08 Hgb 11.8 gm/dl (10.1-14.3) 08/02/18 05:08 Hct 35.4 % (30.3-42.9) 08/02/18 05:08 MCV 87 fl (79-97) 08/02/18 05:08 MCH 29 pg (28-32) 08/02/18 05:08 MCHC 33 % (30-34) 08/02/18 05:08 RDW 14.3 % (13.2-15.2) 08/02/18 05:08 Plt Count 250 K/mm3 (140-440) 08/02/18 05:08 Lymph % (Auto) 7.5 % (13.4-35.0) L 07/26/18 19:41 [place] % (Auto) 6.5 % (0.0-7.3) 07/26/18 19:41 Eos % (Auto) 0.1 % (0.0-4.3) 07/26/18 19:41 Baso % (Auto) 0.4 % (0.0-1.8) 07/26/18 19:41 Lymph # 1.0 K/mm3 (1.2-5.4) L 07/26/18 19:41 [place] # 0.8 K/mm3 (0.0-0.8) 07/26/18 19:41 Eos # 0.0 K/mm3 (0.0-0.4) 07/26/18 19:41 Baso # 0.0 K/mm3 (0.0-0.1) 07/26/18 19:41 Seg Neutrophils % 85.5 % (40.0-70.0) H 07/26/18 19:41 Seg Neutrophils # 11.1 K/mm3 (1.8-7.7) H 07/26/18 19:41 D-Dimer 290.28 ng/mlDDU (0-234) H 07/26/18 19:41 POC ABG pH 7.293 (7.35-7.45) L 07/30/18 03:51 POC ABG pCO2 68.1 (35-45) H 07/30/18 03:51 POC ABG pO2 85 (80-105) 07/30/18 03:51 POC ABG HCO3 33.0 07/30/18 03:51 POC ABG Total CO2 35 07/30/18 03:51 POC ABG O2 Sat 95 07/30/18 03:51 POC ABG Base Excess 6 07/30/18 03:51 FiO2 30 % 07/30/18 03:51 Sodium 143 mmol/L (137-145) 08/02/18 05:08 Potassium 4.7 mmol/L (3.6-5.0) 08/02/18 05:08 Chloride 94.7 mmol/L (98-107) L 08/02/18 05:08 Carbon Dioxide 40 mmol/L (22-30) H 08/02/18 05:08 Anion Gap 13 mmol/L 08/02/18 05:08 BUN 39 mg/dL (7-17) H 08/02/18 05:08 Creatinine 0.7 mg/dL (0.7-1.2) 08/02/18 05:08 Estimated GFR > 60 ml/min 08/02/18 05:08 BUN/Creatinine Ratio 56 % 08/02/18 05:08 Glucose 153 mg/dL (65-100) H 08/02/18 05:08 POC Glucose 145 (70-105) H 08/03/18 07:51 Hemoglobin A1c 5.6 % (4-6) 07/27/18 02:50 Lactic Acid 1.60 mmol/L (0.7-2.0) 07/28/18 19:08 Calcium 9.6 mg/dL (8.4-10.2) 08/02/18 05:08 Phosphorus 2.90 mg/dL (2.5-4.5) 07/31/18 04:39 Magnesium 2.80 mg/dL (1.7-2.3) H 07/31/18 04:39 Total Bilirubin 0.20 mg/dL (0.1-1.2) 07/27/18 02:50 AST 21 units/L (5-40) 07/27/18 02:50 ALT 25 units/L (7-56) 07/27/18 02:50 Alkaline Phosphatase 50 units/L (35-129) 07/27/18 02:50 Total Creatine Kinase 134 units/L (30-135) 07/26/18 19:41 Troponin T < 0.010 ng/mL (0.00-0.029) 07/26/18 19:41 Total Protein 7.2 g/dL (6.3-8.2) 07/27/18 02:50 Albumin 4.6 g/dL (3.9-5) 07/27/18 02:50 Albumin/Globulin Ratio 1.8 % 07/27/18 02:50 Triglycerides 207 mg/dL (2-149) H 07/30/18 16:13 Free T4 0.96 ng/dL (0.76-1.46) 07/27/18 13:43 Influenza A (Rapid) Negative (Negative) 07/28/18 03:50 Influenza B (Rapid) Negative (Negative) 07/28/18 03:50 Nutrition/Malnutrition Assess - Dietary Evaluation Nutrition/Malnutrition Findings: Nutrition Notes Start: 07/28/18 11:58 Freq: Status: Active Protocol: Document 08/02/18 14:57 KH (Rec: 08/02/18 15:09 [email or web address]) Co-Sign 08/02/18 14:57 LP Nutrition Notes Initial or Follow up Reassessment Current Diagnosis COPD,Sepsis,Hypertension, Respiratory Failure Other Pertinent Diagnosis Pneumonia, hypercalcemia, DVT prophylaxis Current Diet Cardiac/consistent CHO with mechanical soft Labs/Tests BUN: 39 Pertinent Medications Solu-medrol Height 5 ft 4 in Weight 90 kg Luke Body Weight (kg) 54.54 BMI 34.0 Weight Status Obese Subjective/Other Information Pt f/u for TF change, tolerance and BG labs. Pt diet has been advanced. Pt unable to answer questions at time of visit to to being in pain. Per RN, pt eating well despite being SOB. RN stated pt. consumed 75% of breakfast tray this AM. Percent of energy/protein needs met: 100%/100% Burn Absent Trauma Absent #1 Nutrition Diagnosis Inadequate oral intake As Evidenced by Signs and Symptoms Pt. meeting 100% of energy and protein needs via PO intakes Diagnosis Progress(for reassessment Resolved documentation) Is patient on ventilator? No Is Patient Ambulatory and/or Out of Bed No REE-(Cochran-St. Jeor-confined to bed) 1744.776 Kcal/Kg value to use for calculation 16 Approximate Energy Requirements Using 1440 kcal/Kg Calculation Used for Recommendations Kcal/kg Additional Notes AdjBW: 72kg Pro needs: 58-72g/day (0.8-1 g /kg AdjBW) Fluid needs: 1 ml/kcal Nutrition Intervention Change Diet Order: Continue cardiac/consistent CHO Goal #1 Continue to meet at least 80% of energy and protein needs via PO intakes Revisit per MD consult or patient Sign Off request:
[2018-08-03] MEDS: BROVANA NEBU IH SCH ×3 (08:13→19:52)
[2018-08-03] MEDS: PULMICORT IH SCH ×2 (08:14→19:52)
[2018-08-03] MEDS: LOVENOX SUB-Q SCH (09:11)
[2018-08-03] MEDS: PREVACID SOLUTAB FEEDTUBE SCH (09:11)
[2018-08-03] MEDS: HABITROL TD SCH (09:11)
[2018-08-03] MEDS: SODIUM CHLORIDE FLUSH SYRINGE 10 ML IV SCH ×2 (09:13→21:48)
--- NOTE | 2018-08-03 09:27 | Progress Note ---
Assessment and Plan Acute on chronic resp failure due to COPD exacerbation and pneumonia COPD exacerbation Sepsis secondary to pneumonia. Blood cultures: neg Pneumonia right upper lobe seen on CT Chest Awake, quiet delirium? Hypertension Hyperglycemia, uncontrolled Tobacco Use disorder. Rec Monitor abdominal distention, laxatives Haldoperidol ordered,favor this vs morphine/Ativa, due to respiratory depression,constipation,AMS issues Consider Psych consult Promote light/dark room changes, to minimize circadian disruption Taper HFO as tolerated. Currently 35 LPM 40 FIO2 Continue nebs Complete ABX Will need LTAC for proper care, maintaining support and tobacco cessation. Discussed with RN and pt in detail. No family Subjective Date of service: 08/03/18 Principal diagnosis: ARF/MV,COPD exac Interval history: Alert on HFO cannula. Hoarse, no SOB? No other complains. Agitated at night per RN- controlled after morphine x 1 Objective Vital Signs - 12hr 08/02/18 08/02/18 08/02/18 21:30 21:36 22:00 Temperature Pulse Rate 107 H 98 H Pulse Rate [ Anterior Bilateral Throughout] Pulse Rate [ Bilateral] Pulse Rate [ From Monitor] Respiratory 20 20 17 Rate Respiratory Rate [Anterior Bilateral Throughout] Respiratory Rate [Bilateral ] Blood Pressure 160/43 160/43 O2 Sat by Pulse 95 99 Oximetry 08/02/18 08/02/18 08/02/18 22:30 23:00 23:18 Temperature Pulse Rate 102 H 108 H 114 H Pulse Rate [ Anterior Bilateral Throughout] Pulse Rate [ Bilateral] Pulse Rate [ From Monitor] Respiratory 17 13 18 Rate Respiratory Rate [Anterior Bilateral Throughout] Respiratory Rate [Bilateral ] Blood Pressure 139/81 139/81 170/95 O2 Sat by Pulse 99 98 98 Oximetry 08/02/18 08/02/18 08/02/18 23:29 23:30 23:31 Temperature Pulse Rate 130 H 130 H 130 H Pulse Rate [ Anterior Bilateral Throughout] Pulse Rate [ Bilateral] Pulse Rate [ From Monitor] Respiratory 12 Rate Respiratory Rate [Anterior Bilateral Throughout] Respiratory Rate [Bilateral ] Blood Pressure 170/95 170/95 O2 Sat by Pulse 99 Oximetry 08/02/18 08/03/18 08/03/18 23:32 00:00 00:22 Temperature 98.0 F Pulse Rate 103 H Pulse Rate [ 89 Anterior Bilateral Throughout] Pulse Rate [ Bilateral] Pulse Rate [ 130 H From Monitor] Respiratory 20 10 L Rate Respiratory 12 Rate [Anterior Bilateral Throughout] Respiratory Rate [Bilateral ] Blood Pressure 170/95 O2 Sat by Pulse 99 98 Oximetry 08/03/18 08/03/18 08/03/18 00:30 00:32 00:33 Temperature Pulse Rate 139 H 122 H Pulse Rate [ 99 H Anterior Bilateral Throughout] Pulse Rate [ Bilateral] Pulse Rate [ From Monitor] Respiratory 11 L 16 Rate Respiratory 16 Rate [Anterior Bilateral Throughout] Respiratory Rate [Bilateral ] Blood Pressure 120/55 120/55 O2 Sat by Pulse 98 99 Oximetry 08/03/18 08/03/18 08/03/18 01:00 01:30 02:00 Temperature Pulse Rate 87 84 96 H Pulse Rate [ Anterior Bilateral Throughout] Pulse Rate [ Bilateral] Pulse Rate [ From Monitor] Respiratory 11 L 19 21 Rate Respiratory Rate [Anterior Bilateral Throughout] Respiratory Rate [Bilateral ] Blood Pressure 128/65 128/65 128/65 O2 Sat by Pulse 94 100 100 Oximetry 08/03/18 08/03/18 08/03/18 02:30 03:00 03:07 Temperature Pulse Rate 79 84 Pulse Rate [ 87 Anterior Bilateral Throughout] Pulse Rate [ Bilateral] Pulse Rate [ From Monitor] Respiratory 11 L 20 Rate Respiratory 16 Rate [Anterior Bilateral Throughout] Respiratory Rate [Bilateral ] Blood Pressure 107/66 108/57 O2 Sat by Pulse 100 95 Oximetry 08/03/18 08/03/18 08/03/18 03:09 03:10 03:16 Temperature Pulse Rate 82 Pulse Rate [ 86 Anterior Bilateral Throughout] Pulse Rate [ Bilateral] Pulse Rate [ 82 From Monitor] Respiratory 16 Rate Respiratory 17 Rate [Anterior Bilateral Throughout] Respiratory Rate [Bilateral ] Blood Pressure O2 Sat by Pulse 100 Oximetry 08/03/18 08/03/18 08/03/18 03:30 03:31 04:00 Temperature 97.7 F Pulse Rate 76 78 Pulse Rate [ Anterior Bilateral Throughout] Pulse Rate [ Bilateral] Pulse Rate [ From Monitor] Respiratory 22 13 Rate Respiratory Rate [Anterior Bilateral Throughout] Respiratory Rate [Bilateral ] Blood Pressure 108/57 108/57 O2 Sat by Pulse 100 99 Oximetry 08/03/18 08/03/18 08/03/18 04:30 05:00 05:30 Temperature Pulse Rate 87 97 H 116 H Pulse Rate [ Anterior Bilateral Throughout] Pulse Rate [ Bilateral] Pulse Rate [ From Monitor] Respiratory 14 18 22 Rate Respiratory Rate [Anterior Bilateral Throughout] Respiratory Rate [Bilateral ] Blood Pressure 109/59 147/94 147/94 O2 Sat by Pulse 100 99 100 Oximetry 08/03/18 08/03/18 08/03/18 06:00 06:30 07:00 Temperature Pulse Rate 101 H 94 H 90 Pulse Rate [ Anterior Bilateral Throughout] Pulse Rate [ Bilateral] Pulse Rate [ From Monitor] Respiratory 18 15 13 Rate Respiratory Rate [Anterior Bilateral Throughout] Respiratory Rate [Bilateral ] Blood Pressure 147/94 127/73 127/73 O2 Sat by Pulse 99 100 100 Oximetry 08/03/18 08/03/18 08/03/18 07:30 08:00 08:15 Temperature 98.0 F Pulse Rate 114 H 93 H Pulse Rate [ Anterior Bilateral Throughout] Pulse Rate [ 104 H 96 H Bilateral] Pulse Rate [ 106 H From Monitor] Respiratory 16 14 Rate Respiratory Rate [Anterior Bilateral Throughout] Respiratory 10 L 13 Rate [Bilateral ] Blood Pressure 141/112 149/81 O2 Sat by Pulse 100 100 Oximetry 08/03/18 08/03/18 08:16 08:30 Temperature Pulse Rate 99 H Pulse Rate [ Anterior Bilateral Throughout] Pulse Rate [ Bilateral] Pulse Rate [ From Monitor] Respiratory 18 Rate Respiratory Rate [Anterior Bilateral Throughout] Respiratory Rate [Bilateral ] Blood Pressure 160/88 O2 Sat by Pulse 99 95 Oximetry Constitutional: alert, appears uncomfortable Eyes: non-icteric ENT: other (Orally intubated and sedated. Critically ill on vent) Neck: no lymphadenopathy Ascultation: Right: wheezes (faint), Bilateral: clear, diminished breath sounds Percussion: Bilateral: not dull Cardiovascular: regular rate and rhythm (sinus tach) Gastrointestinal: normoactive bowel sounds, tender, other (distended ,no guarding) Integumentary: normal Neurologic: non-focal exam, pupils equal and round, CN II-XII normal Psychiatric: other (mild restlessness) CBC and BMP: 08/02/18 05:08 08/02/18 05:08 ABG, PT/INR, D-dimer: ABG POC ABG pH 7.293 (7.35-7.45) L 07/30/18 03:51 POC ABG pCO2 68.1 (35-45) H 07/30/18 03:51 POC ABG pO2 85 (80-105) 07/30/18 03:51 POC ABG HCO3 33.0 07/30/18 03:51 POC ABG Total CO2 35 07/30/18 03:51 POC ABG O2 Sat 95 07/30/18 03:51 PT/INR, D-dimer D-Dimer 290.28 ng/mlDDU (0-234) H 07/26/18 19:41 Abnormal lab findings: Abnormal Labs 07/26/18 07/26/18 07/26/18 19:41 19:41 19:41 WBC 13.0 H RBC Lymph % (Auto) 7.5 L Lymph # 1.0 L Seg Neutrophils % 85.5 H Seg Neutrophils # 11.1 H D-Dimer 290.28 H POC ABG pH POC ABG pCO2 POC ABG pO2 Sodium Potassium Chloride 91.9 L Carbon Dioxide 35 H BUN 23 H Glucose 179 H POC Glucose Lactic Acid Calcium 10.3 H Magnesium 2.90 H Triglycerides 07/26/18 07/26/18 07/27/18 20:58 23:24 02:50 WBC RBC Lymph % (Auto) Lymph # Seg Neutrophils % Seg Neutrophils # D-Dimer POC ABG pH 7.237 L 7.257 L POC ABG pCO2 83.7 H 78.4 H POC ABG pO2 110 H 52 L Sodium Potassium Chloride Carbon Dioxide BUN Glucose POC Glucose Lactic Acid 3.30 H* Calcium Magnesium Triglycerides 07/27/18 07/27/18 07/27/18 02:50 06:14 08:58 WBC RBC Lymph % (Auto) Lymph # Seg Neutrophils % Seg Neutrophils # D-Dimer POC ABG pH 7.269 L POC ABG pCO2 76.4 H POC ABG pO2 Sodium 136 L Potassium Chloride 91.4 L Carbon Dioxide 31 H BUN 22 H Glucose 312 H POC Glucose Lactic Acid 2.30 H* Calcium Magnesium 2.40 H Triglycerides 07/27/18 07/27/18 07/27/18 19:39 20:18 23:35 WBC RBC Lymph % (Auto) Lymph # Seg Neutrophils % Seg Neutrophils # D-Dimer POC ABG pH POC ABG pCO2 62.7 H POC ABG pO2 220 H Sodium Potassium Chloride Carbon Dioxide BUN Glucose POC Glucose 203 H 171 H Lactic Acid Calcium Magnesium Triglycerides 07/28/18 07/28/18 07/28/18 04:52 05:24 11:55 WBC RBC Lymph % (Auto) Lymph # Seg Neutrophils % Seg Neutrophils # D-Dimer POC ABG pH POC ABG pCO2 58.3 H POC ABG pO2 68 L Sodium Potassium Chloride Carbon Dioxide BUN Glucose POC Glucose 223 H 220 H Lactic Acid Calcium Magnesium Triglycerides 07/28/18 07/28/18 07/28/18 15:03 15:03 15:03 WBC RBC 3.54 L Lymph % (Auto) Lymph # Seg Neutrophils % Seg Neutrophils # D-Dimer POC ABG pH POC ABG pCO2 POC ABG pO2 Sodium Potassium Chloride 96.2 L Carbon Dioxide 36 H BUN 26 H Glucose 194 H POC Glucose Lactic Acid 2.20 H* Calcium Magnesium Triglycerides 07/28/18 07/28/18 07/29/18 16:01 18:23 00:02 WBC RBC Lymph % (Auto) Lymph # Seg Neutrophils % Seg Neutrophils # D-Dimer POC ABG pH 7.188 L POC ABG pCO2 72.5 H POC ABG pO2 67 L Sodium Potassium Chloride Carbon Dioxide BUN Glucose POC Glucose 197 H 210 H Lactic Acid Calcium Magnesium Triglycerides 07/29/18 07/29/18 07/29/18 05:00 05:08 06:09 WBC RBC Lymph % (Auto) Lymph # Seg Neutrophils % Seg Neutrophils # D-Dimer POC ABG pH POC ABG pCO2 59.3 H POC ABG pO2 Sodium Potassium Chloride Carbon Dioxide 31 H BUN 25 H Glucose 204 H POC Glucose 204 H Lactic Acid Calcium Magnesium Triglycerides 07/29/18 07/29/18 07/30/18 11:29 18:23 00:02 WBC RBC Lymph % (Auto) Lymph # Seg Neutrophils % Seg Neutrophils # D-Dimer POC ABG pH POC ABG pCO2 POC ABG pO2 Sodium Potassium Chloride Carbon Dioxide BUN Glucose POC Glucose 225 H 196 H 262 H Lactic Acid Calcium Magnesium Triglycerides 07/30/18 07/30/18 07/30/18 03:51 05:01 07:27 WBC RBC 3.59 L Lymph % (Auto) Lymph # Seg Neutrophils % Seg Neutrophils # D-Dimer POC ABG pH 7.293 L POC ABG pCO2 68.1 H POC ABG pO2 Sodium Potassium Chloride Carbon Dioxide BUN Glucose POC Glucose 278 H Lactic Acid Calcium Magnesium Triglycerides 07/30/18 07/30/18 07/30/18 07:27 12:19 16:13 WBC RBC Lymph % (Auto) Lymph # Seg Neutrophils % Seg Neutrophils # D-Dimer POC ABG pH POC ABG pCO2 POC ABG pO2 Sodium Potassium Chloride Carbon Dioxide BUN 25 H Glucose 316 H POC Glucose 331 H Lactic Acid Calcium Magnesium Triglycerides 207 H 07/30/18 07/30/18 07/31/18 17:38 23:53 04:39 WBC RBC Lymph % (Auto) Lymph # Seg Neutrophils % Seg Neutrophils # D-Dimer POC ABG pH POC ABG pCO2 POC ABG pO2 Sodium Potassium Chloride 94.8 L Carbon Dioxide BUN 31 H Glucose 384 H POC Glucose 315 H 358 H Lactic Acid Calcium Magnesium 2.80 H Triglycerides 07/31/18 07/31/18 07/31/18 05:35 12:30 18:05 WBC RBC Lymph % (Auto) Lymph # Seg Neutrophils % Seg Neutrophils # D-Dimer POC ABG pH POC ABG pCO2 POC ABG pO2 Sodium Potassium Chloride Carbon Dioxide BUN Glucose POC Glucose 300 H 259 H 119 H Lactic Acid Calcium Magnesium Triglycerides 08/01/18 08/01/18 08/01/18 03:19 03:19 06:08 WBC 17.7 H RBC Lymph % (Auto) Lymph # Seg Neutrophils % Seg Neutrophils # D-Dimer POC ABG pH POC ABG pCO2 POC ABG pO2 Sodium Potassium 5.1 H D Chloride 95.8 L Carbon Dioxide 38 H D BUN 38 H Glucose 116 H POC Glucose 129 H Lactic Acid Calcium Magnesium Triglycerides 08/01/18 08/01/18 08/02/18 11:49 17:21 00:16 WBC RBC Lymph % (Auto) Lymph # Seg Neutrophils % Seg Neutrophils # D-Dimer POC ABG pH POC ABG pCO2 POC ABG pO2 Sodium Potassium Chloride Carbon Dioxide BUN Glucose POC Glucose 329 H 108 H 141 H Lactic Acid Calcium Magnesium Triglycerides 08/02/18 08/02/18 08/02/18 04:39 05:08 05:08 WBC 15.2 H RBC Lymph % (Auto) Lymph # Seg Neutrophils % Seg Neutrophils # D-Dimer POC ABG pH POC ABG pCO2 POC ABG pO2 Sodium Potassium Chloride 94.7 L Carbon Dioxide 40 H BUN 39 H Glucose 153 H POC Glucose 138 H Lactic Acid Calcium Magnesium Triglycerides 08/02/18 08/02/18 08/02/18 08:22 12:37 18:42 WBC RBC Lymph % (Auto) Lymph # Seg Neutrophils % Seg Neutrophils # D-Dimer POC ABG pH POC ABG pCO2 POC ABG pO2 Sodium Potassium Chloride Carbon Dioxide BUN Glucose POC Glucose 158 H 220 H 206 H Lactic Acid Calcium Magnesium Triglycerides 08/03/18 07:51 WBC RBC Lymph % (Auto) Lymph # Seg Neutrophils % Seg Neutrophils # D-Dimer POC ABG pH POC ABG pCO2 POC ABG pO2 Sodium Potassium Chloride Carbon Dioxide BUN Glucose POC Glucose 145 H Lactic Acid Calcium Magnesium Triglycerides
[2018-08-03 09:53] LABS: BUN/Creatinine Ratio 60; Blood Urea Nitrogen 42 mg/dL (7-17); Calcium 10.4 mg/dL (8.4-10.2); Hemolysis Index 4
[2018-08-03] MEDS: CARDIZEM PO SCH ×2 (11:53→18:24)
[2018-08-03] MEDS ORDERED: HALDOL PO PRN (15:46)
[2018-08-03 21:43] LABS: Hematocrit 35.1 % (30.3-42.9); Hemoglobin 11.6 gm/dl (10.1-14.3); Mean Corpuscular HGB Conc 33 % (30-34); Mean Corpuscular Volume 87 fl (79-97); Platelet Count 270 K/mm3 (140-440); Red Blood Count 4.05 M/mm3 (3.65-5.03); Red Cell Distribution Width 14.7 % (13.2-15.2)
[2018-08-03] MEDS: MORPHINE IV PRN (21:46)
[2018-08-04] MEDS: HumaLOG SUB-Q SCH ×4 (01:00→17:06)
[2018-08-04] MEDS: SOLU-Medrol IV SCH ×3 (02:42→17:45)
[2018-08-04] MEDS: CARDIZEM PO SCH ×4 (02:42→17:07)
[2018-08-04] MEDS ORDERED: VASELINE LIP THERAPY TP PRN (03:42)
[2018-08-04] MEDS: DUONEB *Not for PRN Use IH SCH ×6 (03:51→23:29)
[2018-08-04] MEDS: PULMICORT IH SCH ×2 (07:28→19:59)
[2018-08-04] MEDS: BROVANA NEBU IH SCH ×2 (07:28→19:59)
--- NOTE | 2018-08-04 08:07 | Progress Note ---
Assessment and Plan Assessment and plan: Patient is a 63-year-old -[place] female with history of asthma and COPD who presented to the ED on account of 1 day history of worsening shortness of breath, cough, diaphoresis, runny nose, headaches and lightheadedness. On arrival to the ED, patient was in respiratory distress and had to be placed on BiPAP and admitted to Tele. She was diagnosed with acute on chronic respiratory failure secondary to COPD exacerbation and pneumonia. She was put on Levaquin and Solu-Medrol and DuoNeb. Despite management, respiratory failure became worse, rapid response called . ABG showed worsening respiratory failure so she was intubated, placed on vent transferred to ICU on 07/27/18. She improved on ventilator and was extubated 07/31/18. Less short of breath. * Patient now on high flow oxygen and awaiting LTAC referral for slow continued wean. * Patient with intermittent anxiety leading to tachycardia in addition to severe deconditioning Acute on chronic resp failure due to COPD exacerbation and pneumonia Initially was on BIPAP, however developed worse respiratory failure therefore intubated, put on vent, transferred to ICU, now extubated 07/31/18 Currently on high flow Oxygen Continue management per Pulmonary COPD exacerbation Cont solu-medrol, Duoneb Continue management per Pulmonary. Agree to LTAC Anxiety Disorder: Prn Haldol Sepsis secondary to pneumonia. Blood cultures: No growth Pneumponia right upper lobe seen on CT Chest levaquin- Complete 5-7 Days Total Hypertension Monitor BP Hyperglycemia, uncontrolled Continue [place] 70/30 to 16 Units bid No history of diabetes, A1C 5.6 Deconditioning: PT/OT once o2 weaned to acceptable level Tobacco Use disorder. Counselling provided for 15mins, patient verbalized understanding and states she will not smoke again DVT prophylaxis. Lovenox Full code status Dispo: Consult Case management for LTAC admit History Interval history: Patient seen and examined this am. She was admitted with Respiratory failure and placed on ventilator, now extubated to HFNC now at 35% FIO2. more restful today. had some agitation overnight. Hospitalist Physical - Physical exam Narrative exam: GEN: Not in acute distress, on high flow Oxygen by NC, obese HEENT: Normocephalic, atraumatic, Mouth: Dry Neck: supple, No JVD Lungs: Bilateral rhonchi, wheezing, increased WOB, Heart:S1 and S2 regular, no murmurs, rubs or gallop, Abd:soft, non tender, non distended, normal bowel sounds Ext: No edema, no clubbing or cyanosis Neuro: AAO x 3,moves all ext Skin: No rash - Constitutional Vitals: Temp Pulse Resp BP Pulse Ox 98.9 F 97 H 16 143/82 98 08/04/18 08:01 08/04/18 07:30 08/04/18 07:30 08/04/18 07:30 08/04/18 07:31 General appearance: Present: no acute distress, other (on BiPAP) Results - Labs CBC & Chem 7: 08/05/18 03:46 08/03/18 04:23 Labs: Laboratory Last Values WBC 18.6 K/mm3 (4.5-11.0) H 08/03/18 21:26 RBC 4.05 M/mm3 (3.65-5.03) 08/03/18 21:26 Hgb 11.6 gm/dl (10.1-14.3) 08/03/18 21:26 Hct 35.1 % (30.3-42.9) 08/03/18 21:26 MCV 87 fl (79-97) 08/03/18 21:26 MCH 29 pg (28-32) 08/03/18 21:26 MCHC 33 % (30-34) 08/03/18 21:26 RDW 14.7 % (13.2-15.2) 08/03/18 21:26 Plt Count 270 K/mm3 (140-440) 08/03/18 21:26 Lymph % (Auto) 7.5 % (13.4-35.0) L 07/26/18 19:41 [place] % (Auto) 6.5 % (0.0-7.3) 07/26/18 19:41 Eos % (Auto) 0.1 % (0.0-4.3) 07/26/18 19:41 Baso % (Auto) 0.4 % (0.0-1.8) 07/26/18 19:41 Lymph # 1.0 K/mm3 (1.2-5.4) L 07/26/18 19:41 [place] # 0.8 K/mm3 (0.0-0.8) 07/26/18 19:41 Eos # 0.0 K/mm3 (0.0-0.4) 07/26/18 19:41 Baso # 0.0 K/mm3 (0.0-0.1) 07/26/18 19:41 Seg Neutrophils % 85.5 % (40.0-70.0) H 07/26/18 19:41 Seg Neutrophils # 11.1 K/mm3 (1.8-7.7) H 07/26/18 19:41 D-Dimer 290.28 ng/mlDDU (0-234) H 07/26/18 19:41 POC ABG pH 7.293 (7.35-7.45) L 07/30/18 03:51 POC ABG pCO2 68.1 (35-45) H 07/30/18 03:51 POC ABG pO2 85 (80-105) 07/30/18 03:51 POC ABG HCO3 33.0 07/30/18 03:51 POC ABG Total CO2 35 07/30/18 03:51 POC ABG O2 Sat 95 07/30/18 03:51 POC ABG Base Excess 6 07/30/18 03:51 FiO2 30 % 07/30/18 03:51 Sodium 143 mmol/L (137-145) 08/03/18 04:23 Potassium 4.8 mmol/L (3.6-5.0) 08/03/18 04:23 Chloride 94.0 mmol/L (98-107) L 08/03/18 04:23 Carbon Dioxide 37 mmol/L (22-30) H 08/03/18 04:23 Anion Gap 17 mmol/L 08/03/18 04:23 BUN 42 mg/dL (7-17) H 08/03/18 04:23 Creatinine 0.7 mg/dL (0.7-1.2) 08/03/18 04:23 Estimated GFR > 60 ml/min 08/03/18 04:23 BUN/Creatinine Ratio 60 % 08/03/18 04:23 Glucose 112 mg/dL (65-100) H 08/03/18 04:23 POC Glucose 105 (70-105) 08/04/18 05:16 Hemoglobin A1c 5.6 % (4-6) 07/27/18 02:50 Lactic Acid 1.60 mmol/L (0.7-2.0) 07/28/18 19:08 Calcium 10.4 mg/dL (8.4-10.2) H 08/03/18 04:23 Phosphorus 2.90 mg/dL (2.5-4.5) 07/31/18 04:39 Magnesium 2.80 mg/dL (1.7-2.3) H 07/31/18 04:39 Total Bilirubin 0.20 mg/dL (0.1-1.2) 07/27/18 02:50 AST 21 units/L (5-40) 07/27/18 02:50 ALT 25 units/L (7-56) 07/27/18 02:50 Alkaline Phosphatase 50 units/L (35-129) 07/27/18 02:50 Total Creatine Kinase 134 units/L (30-135) 07/26/18 19:41 Troponin T < 0.010 ng/mL (0.00-0.029) 07/26/18 19:41 Total Protein 7.2 g/dL (6.3-8.2) 07/27/18 02:50 Albumin 4.6 g/dL (3.9-5) 07/27/18 02:50 Albumin/Globulin Ratio 1.8 % 07/27/18 02:50 Triglycerides 207 mg/dL (2-149) H 07/30/18 16:13 Free T4 0.96 ng/dL (0.76-1.46) 07/27/18 13:43 Influenza A (Rapid) Negative (Negative) 07/28/18 03:50 Influenza B (Rapid) Negative (Negative) 07/28/18 03:50 Nutrition/Malnutrition Assess - Dietary Evaluation Nutrition/Malnutrition Findings: Nutrition Notes Start: 07/28/18 11:58 Freq: Status: Active Protocol: Document 08/02/18 14:57 KH (Rec: 08/02/18 15:09 [email or web address]) Co-Sign 08/02/18 14:57 LP Nutrition Notes Initial or Follow up Reassessment Current Diagnosis COPD,Sepsis,Hypertension, Respiratory Failure Other Pertinent Diagnosis Pneumonia, hypercalcemia, DVT prophylaxis Current Diet Cardiac/consistent CHO with mechanical soft Labs/Tests BUN: 39 Pertinent Medications Solu-medrol Height 5 ft 4 in Weight 90 kg [place] Body Weight (kg) 54.54 BMI 34.0 Weight Status Obese Subjective/Other Information Pt f/u for TF change, tolerance and BG labs. Pt diet has been advanced. Pt unable to answer questions at time of visit to to being in pain. Per RN, pt eating well despite being SOB. RN stated pt. consumed 75% of breakfast tray this AM. Percent of energy/protein needs met: 100%/100% Burn Absent Trauma Absent #1 Nutrition Diagnosis Inadequate oral intake As Evidenced by Signs and Symptoms Pt. meeting 100% of energy and protein needs via PO intakes Diagnosis Progress(for reassessment Resolved documentation) Is patient on ventilator? No Is Patient Ambulatory and/or Out of Bed No REE-([place]-St. Jeor-confined to bed) 1744.776 Kcal/Kg value to use for calculation 16 Approximate Energy Requirements Using 1440 kcal/Kg Calculation Used for Recommendations Kcal/kg Additional Notes AdjBW: 72kg Pro needs: 58-72g/day (0.8-1 g /kg AdjBW) Fluid needs: 1 ml/kcal Nutrition Intervention Change Diet Order: Continue cardiac/consistent CHO Goal #1 Continue to meet at least 80% of energy and protein needs via PO intakes Revisit per MD consult or patient Sign Off request:
--- NOTE | 2018-08-04 09:21 | Progress Note ---
Assessment and Plan Acute on chronic resp failure due to COPD exacerbation and pneumonia COPD exacerbation Sepsis secondary to pneumonia. Blood cultures: neg Pneumonia right upper lobe seen on CT Chest Awake, quiet delirium? Hypertension Hyperglycemia, uncontrolled Tobacco Use disorder. Rec Monitor abdominal distention, laxatives Consider decrease Solu-Medrol Psych consult Promote light/dark room changes, to minimize circadian disruption Taper HFO as tolerated. Currently 35 LPM 40 FIO2 Continue nebs Complete ABX Will need LTAC for proper care, maintaining support and tobacco cessation. Discussed with RN and pt in detail. No family Subjective Date of service: 08/04/18 Principal diagnosis: ARF/MV,COPD exac Interval history: Some shortness of breath Objective Vital Signs - 12hr 08/03/18 08/03/18 08/03/18 21:30 22:00 22:30 Temperature Pulse Rate 110 H 123 H 103 H Pulse Rate [ Bilateral] Pulse Rate [ From Monitor] Respiratory 17 19 22 Rate Respiratory Rate [Bilateral ] Blood Pressure 157/74 157/74 180/88 O2 Sat by Pulse 98 98 98 Oximetry 08/03/18 08/03/18 08/03/18 23:00 23:25 23:30 Temperature Pulse Rate 122 H 109 H Pulse Rate [ 101 H Bilateral] Pulse Rate [ From Monitor] Respiratory 17 14 Rate Respiratory 22 Rate [Bilateral ] Blood Pressure 147/82 153/81 O2 Sat by Pulse 99 99 99 Oximetry 08/03/18 08/04/18 08/04/18 23:44 00:00 00:31 Temperature Pulse Rate 108 H 86 Pulse Rate [ 102 H Bilateral] Pulse Rate [ 102 H From Monitor] Respiratory 19 12 Rate Respiratory 18 Rate [Bilateral ] Blood Pressure 153/81 146/86 O2 Sat by Pulse 97 Oximetry 08/04/18 08/04/18 08/04/18 01:00 01:30 02:00 Temperature Pulse Rate 95 H 80 79 Pulse Rate [ Bilateral] Pulse Rate [ From Monitor] Respiratory 11 L 11 L 11 L Rate Respiratory Rate [Bilateral ] Blood Pressure 150/69 150/69 150/69 O2 Sat by Pulse Oximetry 08/04/18 08/04/18 08/04/18 02:30 02:42 03:00 Temperature Pulse Rate 90 91 H 89 Pulse Rate [ Bilateral] Pulse Rate [ From Monitor] Respiratory 13 16 Rate Respiratory Rate [Bilateral ] Blood Pressure 150/69 136/87 150/69 O2 Sat by Pulse Oximetry 08/04/18 08/04/18 08/04/18 03:30 03:51 04:00 Temperature Pulse Rate 87 68 Pulse Rate [ 71 Bilateral] Pulse Rate [ 102 H From Monitor] Respiratory 12 19 Rate Respiratory 16 Rate [Bilateral ] Blood Pressure 145/83 145/83 O2 Sat by Pulse 97 97 Oximetry 08/04/18 08/04/18 08/04/18 04:02 04:03 04:30 Temperature Pulse Rate 130 H Pulse Rate [ 73 Bilateral] Pulse Rate [ From Monitor] Respiratory 15 Rate Respiratory 14 Rate [Bilateral ] Blood Pressure 152/74 O2 Sat by Pulse 99 68 L Oximetry 08/04/18 08/04/18 08/04/18 05:00 05:30 05:58 Temperature Pulse Rate 93 H 74 86 Pulse Rate [ Bilateral] Pulse Rate [ From Monitor] Respiratory 15 11 L Rate Respiratory Rate [Bilateral ] Blood Pressure 152/74 157/77 157/77 O2 Sat by Pulse 100 99 Oximetry 08/04/18 08/04/18 08/04/18 06:00 06:30 07:00 Temperature Pulse Rate 85 76 80 Pulse Rate [ Bilateral] Pulse Rate [ From Monitor] Respiratory 14 11 L 20 Rate Respiratory Rate [Bilateral ] Blood Pressure 162/98 162/98 138/79 O2 Sat by Pulse 97 99 100 Oximetry 08/04/18 08/04/18 08/04/18 07:30 07:31 08:01 Temperature 98.9 F Pulse Rate 86 Pulse Rate [ 97 H Bilateral] Pulse Rate [ From Monitor] Respiratory 17 Rate Respiratory 16 Rate [Bilateral ] Blood Pressure 143/82 O2 Sat by Pulse 98 98 Oximetry Constitutional: alert, appears uncomfortable Eyes: non-icteric Neck: no lymphadenopathy, no JVD Ascultation: Right: wheezes (faint), Bilateral: clear, diminished breath sounds Percussion: Bilateral: not dull Cardiovascular: regular rate and rhythm (sinus tach) Gastrointestinal: normoactive bowel sounds, tender, other (distended ,no guarding) Integumentary: normal Neurologic: non-focal exam, pupils equal and round, CN II-XII normal Psychiatric: other (mild restlessness) CBC and BMP: 08/03/18 21:26 08/03/18 04:23 ABG, PT/INR, D-dimer: ABG POC ABG pH 7.293 (7.35-7.45) L 07/30/18 03:51 POC ABG pCO2 68.1 (35-45) H 07/30/18 03:51 POC ABG pO2 85 (80-105) 07/30/18 03:51 POC ABG HCO3 33.0 07/30/18 03:51 POC ABG Total CO2 35 07/30/18 03:51 POC ABG O2 Sat 95 07/30/18 03:51 PT/INR, D-dimer D-Dimer 290.28 ng/mlDDU (0-234) H 07/26/18 19:41 Abnormal lab findings: Abnormal Labs 07/26/18 07/26/18 07/26/18 19:41 19:41 19:41 WBC 13.0 H RBC Lymph % (Auto) 7.5 L Lymph # 1.0 L Seg Neutrophils % 85.5 H Seg Neutrophils # 11.1 H D-Dimer 290.28 H POC ABG pH POC ABG pCO2 POC ABG pO2 Sodium Potassium Chloride 91.9 L Carbon Dioxide 35 H BUN 23 H Glucose 179 H POC Glucose Lactic Acid Calcium 10.3 H Magnesium 2.90 H Triglycerides 07/26/18 07/26/18 07/27/18 20:58 23:24 02:50 WBC RBC Lymph % (Auto) Lymph # Seg Neutrophils % Seg Neutrophils # D-Dimer POC ABG pH 7.237 L 7.257 L POC ABG pCO2 83.7 H 78.4 H POC ABG pO2 110 H 52 L Sodium Potassium Chloride Carbon Dioxide BUN Glucose POC Glucose Lactic Acid 3.30 H* Calcium Magnesium Triglycerides 07/27/18 07/27/18 07/27/18 02:50 06:14 08:58 WBC RBC Lymph % (Auto) Lymph # Seg Neutrophils % Seg Neutrophils # D-Dimer POC ABG pH 7.269 L POC ABG pCO2 76.4 H POC ABG pO2 Sodium 136 L Potassium Chloride 91.4 L Carbon Dioxide 31 H BUN 22 H Glucose 312 H POC Glucose Lactic Acid 2.30 H* Calcium Magnesium 2.40 H Triglycerides 07/27/18 07/27/18 07/27/18 17:20 17:30 19:39 WBC RBC Lymph % (Auto) Lymph # Seg Neutrophils % Seg Neutrophils # D-Dimer POC ABG pH 7.138 L 7.135 L POC ABG pCO2 109.4 H 114.0 H POC ABG pO2 69 L 50 L Sodium Potassium Chloride Carbon Dioxide BUN Glucose POC Glucose 203 H Lactic Acid Calcium Magnesium Triglycerides 07/27/18 07/27/18 07/28/18 20:18 23:35 04:52 WBC RBC Lymph % (Auto) Lymph # Seg Neutrophils % Seg Neutrophils # D-Dimer POC ABG pH POC ABG pCO2 62.7 H 58.3 H POC ABG pO2 220 H 68 L Sodium Potassium Chloride Carbon Dioxide BUN Glucose POC Glucose 171 H Lactic Acid Calcium Magnesium Triglycerides 07/28/18 07/28/18 07/28/18 05:24 11:55 15:03 WBC RBC 3.54 L Lymph % (Auto) Lymph # Seg Neutrophils % Seg Neutrophils # D-Dimer POC ABG pH POC ABG pCO2 POC ABG pO2 Sodium Potassium Chloride Carbon Dioxide BUN Glucose POC Glucose 223 H 220 H Lactic Acid Calcium Magnesium Triglycerides 07/28/18 07/28/18 07/28/18 15:03 15:03 16:01 WBC RBC Lymph % (Auto) Lymph # Seg Neutrophils % Seg Neutrophils # D-Dimer POC ABG pH 7.188 L POC ABG pCO2 72.5 H POC ABG pO2 67 L Sodium Potassium Chloride 96.2 L Carbon Dioxide 36 H BUN 26 H Glucose 194 H POC Glucose Lactic Acid 2.20 H* Calcium Magnesium Triglycerides 07/28/18 07/29/18 07/29/18 18:23 00:02 05:00 WBC RBC Lymph % (Auto) Lymph # Seg Neutrophils % Seg Neutrophils # D-Dimer POC ABG pH POC ABG pCO2 POC ABG pO2 Sodium Potassium Chloride Carbon Dioxide 31 H BUN 25 H Glucose 204 H POC Glucose 197 H 210 H Lactic Acid Calcium Magnesium Triglycerides 07/29/18 07/29/18 07/29/18 05:08 06:09 11:29 WBC RBC Lymph % (Auto) Lymph # Seg Neutrophils % Seg Neutrophils # D-Dimer POC ABG pH POC ABG pCO2 59.3 H POC ABG pO2 Sodium Potassium Chloride Carbon Dioxide BUN Glucose POC Glucose 204 H 225 H Lactic Acid Calcium Magnesium Triglycerides 07/29/18 07/30/18 07/30/18 18:23 00:02 03:51 WBC RBC Lymph % (Auto) Lymph # Seg Neutrophils % Seg Neutrophils # D-Dimer POC ABG pH 7.293 L POC ABG pCO2 68.1 H POC ABG pO2 Sodium Potassium Chloride Carbon Dioxide BUN Glucose POC Glucose 196 H 262 H Lactic Acid Calcium Magnesium Triglycerides 07/30/18 07/30/18 07/30/18 05:01 07:27 07:27 WBC RBC 3.59 L Lymph % (Auto) Lymph # Seg Neutrophils % Seg Neutrophils # D-Dimer POC ABG pH POC ABG pCO2 POC ABG pO2 Sodium Potassium Chloride Carbon Dioxide BUN 25 H Glucose 316 H POC Glucose 278 H Lactic Acid Calcium Magnesium Triglycerides 07/30/18 07/30/18 07/30/18 12:19 16:13 17:38 WBC RBC Lymph % (Auto) Lymph # Seg Neutrophils % Seg Neutrophils # D-Dimer POC ABG pH POC ABG pCO2 POC ABG pO2 Sodium Potassium Chloride Carbon Dioxide BUN Glucose POC Glucose 331 H 315 H Lactic Acid Calcium Magnesium Triglycerides 207 H 07/30/18 07/31/18 07/31/18 23:53 04:39 05:35 WBC RBC Lymph % (Auto) Lymph # Seg Neutrophils % Seg Neutrophils # D-Dimer POC ABG pH POC ABG pCO2 POC ABG pO2 Sodium Potassium Chloride 94.8 L Carbon Dioxide BUN 31 H Glucose 384 H POC Glucose 358 H 300 H Lactic Acid Calcium Magnesium 2.80 H Triglycerides 07/31/18 07/31/18 08/01/18 12:30 18:05 03:19 WBC 17.7 H RBC Lymph % (Auto) Lymph # Seg Neutrophils % Seg Neutrophils # D-Dimer POC ABG pH POC ABG pCO2 POC ABG pO2 Sodium Potassium Chloride Carbon Dioxide BUN Glucose POC Glucose 259 H 119 H Lactic Acid Calcium Magnesium Triglycerides 08/01/18 08/01/18 08/01/18 03:19 06:08 11:49 WBC RBC Lymph % (Auto) Lymph # Seg Neutrophils % Seg Neutrophils # D-Dimer POC ABG pH POC ABG pCO2 POC ABG pO2 Sodium Potassium 5.1 H D Chloride 95.8 L Carbon Dioxide 38 H D BUN 38 H Glucose 116 H POC Glucose 129 H 329 H Lactic Acid Calcium Magnesium Triglycerides 08/01/18 08/02/18 08/02/18 17:21 00:16 04:39 WBC RBC Lymph % (Auto) Lymph # Seg Neutrophils % Seg Neutrophils # D-Dimer POC ABG pH POC ABG pCO2 POC ABG pO2 Sodium Potassium Chloride Carbon Dioxide BUN Glucose POC Glucose 108 H 141 H 138 H Lactic Acid Calcium Magnesium Triglycerides 08/02/18 08/02/18 08/02/18 05:08 05:08 08:22 WBC 15.2 H RBC Lymph % (Auto) Lymph # Seg Neutrophils % Seg Neutrophils # D-Dimer POC ABG pH POC ABG pCO2 POC ABG pO2 Sodium Potassium Chloride 94.7 L Carbon Dioxide 40 H BUN 39 H Glucose 153 H POC Glucose 158 H Lactic Acid Calcium Magnesium Triglycerides 08/02/18 08/02/18 08/03/18 12:37 18:42 04:23 WBC RBC Lymph % (Auto) Lymph # Seg Neutrophils % Seg Neutrophils # D-Dimer POC ABG pH POC ABG pCO2 POC ABG pO2 Sodium Potassium Chloride 94.0 L Carbon Dioxide 37 H BUN 42 H Glucose 112 H POC Glucose 220 H 206 H Lactic Acid Calcium 10.4 H Magnesium Triglycerides 08/03/18 08/03/18 08/03/18 07:51 12:09 18:22 WBC RBC Lymph % (Auto) Lymph # Seg Neutrophils % Seg Neutrophils # D-Dimer POC ABG pH POC ABG pCO2 POC ABG pO2 Sodium Potassium Chloride Carbon Dioxide BUN Glucose POC Glucose 145 H 281 H 267 H Lactic Acid Calcium Magnesium Triglycerides 08/03/18 08/03/18 21:26 23:24 WBC 18.6 H RBC Lymph % (Auto) Lymph # Seg Neutrophils % Seg Neutrophils # D-Dimer POC ABG pH POC ABG pCO2 POC ABG pO2 Sodium Potassium Chloride Carbon Dioxide BUN Glucose POC Glucose 220 H Lactic Acid Calcium Magnesium Triglycerides
[2018-08-04] MEDS: HABITROL TD SCH (10:37)
[2018-08-04] MEDS: LOVENOX SUB-Q SCH (10:38)
[2018-08-04] MEDS: SODIUM CHLORIDE FLUSH SYRINGE 10 ML IV SCH ×2 (10:39→22:12)
[2018-08-04] MEDS: PREVACID SOLUTAB FEEDTUBE SCH (10:39)
[2018-08-04] MEDS: ATIVAN IV PRN (22:11)
[2018-08-05] MEDS: SOLU-Medrol IV SCH ×3 (00:27→17:34)
[2018-08-05] MEDS: CARDIZEM PO SCH ×4 (00:28→17:41)
[2018-08-05] MEDS: HumaLOG SUB-Q SCH ×3 (01:09→17:32)
[2018-08-05] MEDS: DUONEB *Not for PRN Use IH SCH ×3 (03:53→15:48)
[2018-08-05 04:46] LABS: Hematocrit 36.8 % (30.3-42.9); Hemoglobin 11.8 gm/dl (10.1-14.3); Mean Corpuscular HGB Conc 32 % (30-34); Mean Corpuscular Volume 89 fl (79-97); Platelet Count 246 K/mm3 (140-440); Red Blood Count 4.16 M/mm3 (3.65-5.03); Red Cell Distribution Width 14.3 % (13.2-15.2)
[2018-08-05] MEDS: PULMICORT IH SCH (07:39)
[2018-08-05] MEDS: BROVANA NEBU IH SCH (07:40)
[2018-08-05] MEDS: PREVACID SOLUTAB FEEDTUBE SCH (10:00)
[2018-08-05] MEDS: LOVENOX SUB-Q SCH (10:00)
[2018-08-05] MEDS: HABITROL TD SCH (10:05)
--- NOTE | 2018-08-05 10:13 | Discharge Summary ---
Providers - Providers Date of Admission: 07/26/18 23:46 Attending physician: JARETH BIRMINGHAM MD 07/27/18 07:36 Consult to Physician [CONS] Routine Comment: Consulting Provider: NISHANT MENDEZ Physician Instructions: Reason For Exam: acute on chronic resp failure,on BIPAP 07/27/18 19:51 Consult to Dietitian/Nutrition [CONS] Routine Physician Instructions: Reason For Exam: Reason for Consult: Evaluate nutritional intake 08/04/18 05:28 Consult to Wound/ET Nurse [CONS] Stat Reason For Exam: wound eval/Colostomy and surrounding skin 08/04/18 12:23 Physical Therapy Evaluation and Treat [CONS] Routine Comment: Reason For Exam: Debility 08/04/18 12:25 Occupational Therapy Evaluate and Treat [CONS] Routine Comment: Reason For Exam: Debility Hospitalization Reason for admission: shortness of breath Condition: Stable Hospital course: Patient is a 63-year-old -Spanish female with history of asthma and COPD who presented to the ED on account of 1 day history of worsening shortness of breath, cough, diaphoresis, runny nose, headaches and lightheadedness. On arrival to the ED, patient was in respiratory distress and had to be placed on BiPAP and admitted to Tele. She was diagnosed with acute on chronic respiratory failure secondary to COPD exacerbation and pneumonia. She was put on Levaquin and Solu-Medrol and DuoNeb. Despite management, respiratory failure became worse, rapid response called . ABG showed worsening respiratory failure so she was intubated, placed on vent transferred to ICU on 07/27/18. She improved on v entilator and was extubated 07/31/18. Less short of breath. * Patient now on high flow oxygen and awaiting LTAC referral for slow continued wean. * Patient with intermittent anxiety leading to tachycardia in addition to severe deconditioning Acute on chronic resp failure due to COPD exacerbation and pneumonia Initially was on BIPAP, however developed worse respiratory failure therefore intubated, put on vent, transferred to ICU, now extubated 07/31/18 Currently on high flow Oxygen Continue management per Pulmonary COPD exacerbation Cont solu-medrol, Duoneb Continue management per Pulmonary. Agree to LTAC Anxiety Disorder: Prn Haldol Sepsis secondary to pneumonia. Blood cultures: No growth Pneumonia right upper lobe seen on CT Chest levaquin- Complete 5-7 Days Total Hypertension Monitor BP Hyperglycemia, uncontrolled Continue Novlin 70/30 to 16 Units bid No history of diabetes, A1C 5.6 Deconditioning: PT/OT once o2 weaned to acceptable level Tobacco Use disorder. Counselling provided for 15mins, patient verbalized understanding and states she will not smoke again Thigh Abscess: per surgery chronic and likely a cyst, no surgical indication Full code status Disposition: [id number] MEDICARE CERT LT Time spent for discharge: 35 mins Core Measure Documentation - Palliative Care Palliative Care/ Comfort Measures: Not Applicable - Core Measures Any of the following diagnoses?: none Exam - Physical Exam Narrative exam: GEN: Not in acute distress, on high flow Oxygen by NC, obese HEENT: Normocephalic, atraumatic, Mouth: Dry Neck: supple, No JVD Lungs: Bilateral rhonchi, wheezing, increased WOB, Heart:S1 and S2 regular, no murmurs, rubs or gallop, Abd:soft, non tender, non distended, normal bowel sounds Ext: No edema, no clubbing or cyanosis Neuro: AAO x 3,moves all ext Skin: No rash - Constitutional Vitals: Temp Pulse Resp BP Pulse Ox 98.0 F 85 13 134/83 98 08/05/18 08:00 08/05/18 07:41 08/05/18 07:41 08/05/18 06:04 08/05/18 07:42 Plan Activity: advance as tolerated, fall precautions Diet: low fat Special Instructions: record daily BP diary, smoking cessation Follow up with: DAHIANA ANGUIANO [Other] - 3-5 Days JANES RICHEY MD [Staff Physician] - 7 Days
--- NOTE | 2018-08-05 10:24 | Progress Note ---
Assessment and Plan Acute on chronic resp failure due to COPD exacerbation and pneumonia COPD exacerbation.Controlled Sepsis secondary to pneumonia. Blood cultures: neg Pneumonia right upper lobe seen on CT Chest Awake, quiet delirium? Better Hypertension Hyperglycemia, uncontrolled Tobacco Use disorder. Rec Monitor abdominal distention, laxatives Trial of NC oxygen 5-6 LPM, monitor oximetries,keep> 89% Psych consult Promote light/dark room changes, to minimize circadian disruption Continue nebs Complete ABX Will need LTAC for proper care, maintaining support and tobacco cessation. Discussed with RN and pt in detail. No family Subjective Date of service: 08/05/18 Principal diagnosis: ARF/MV,COPD exac Interval history: Wants to use the restroom,walk.On HFO cannula 30% Objective Vital Signs - 12hr 08/04/18 08/04/18 08/04/18 23:00 23:29 23:33 Temperature Pulse Rate 92 H 118 H Pulse Rate [ 118 H Bilateral] Pulse Rate [ From Monitor] Respiratory 15 17 Rate Respiratory 17 Rate [Bilateral ] Blood Pressure 124/69 112/73 O2 Sat by Pulse 96 99 Oximetry 08/04/18 08/04/18 08/05/18 23:43 23:46 00:00 Temperature 97.4 F L Pulse Rate 107 H 129 H Pulse Rate [ 133 H Bilateral] Pulse Rate [ 104 H From Monitor] Respiratory 14 21 Rate Respiratory 18 Rate [Bilateral ] Blood Pressure 112/73 112/73 O2 Sat by Pulse 98 99 Oximetry 08/05/18 08/05/18 08/05/18 00:08 00:28 01:00 Temperature Pulse Rate 104 H 100 H 87 Pulse Rate [ Bilateral] Pulse Rate [ From Monitor] Respiratory 13 15 Rate Respiratory Rate [Bilateral ] Blood Pressure 120/72 120/72 110/74 O2 Sat by Pulse 99 97 Oximetry 08/05/18 08/05/18 08/05/18 01:18 02:00 03:00 Temperature 97.3 F L Pulse Rate 95 H 103 H Pulse Rate [ Bilateral] Pulse Rate [ From Monitor] Respiratory 13 15 Rate Respiratory Rate [Bilateral ] Blood Pressure 92/61 108/77 O2 Sat by Pulse 81 L 96 Oximetry 08/05/18 08/05/18 08/05/18 03:53 03:56 04:00 Temperature 97.2 F L Pulse Rate 88 94 H Pulse Rate [ 92 H Bilateral] Pulse Rate [ 90 From Monitor] Respiratory 13 13 Rate Respiratory 13 Rate [Bilateral ] Blood Pressure 108/77 118/77 O2 Sat by Pulse 99 99 Oximetry 08/05/18 08/05/18 08/05/18 04:03 06:04 07:40 Temperature Pulse Rate 109 H Pulse Rate [ 89 90 Bilateral] Pulse Rate [ From Monitor] Respiratory Rate Respiratory 14 14 Rate [Bilateral ] Blood Pressure 134/83 O2 Sat by Pulse Oximetry 08/05/18 08/05/18 08/05/18 07:41 07:42 08:00 Temperature 98.0 F Pulse Rate Pulse Rate [ 85 Bilateral] Pulse Rate [ From Monitor] Respiratory Rate Respiratory 13 Rate [Bilateral ] Blood Pressure O2 Sat by Pulse 98 Oximetry Constitutional: alert, appears uncomfortable Eyes: non-icteric Neck: no lymphadenopathy, no JVD Ascultation: Bilateral: clear, diminished breath sounds Percussion: Bilateral: not dull Cardiovascular: regular rate and rhythm Gastrointestinal: normoactive bowel sounds, tender, other (distended ,no guarding) Integumentary: normal Neurologic: non-focal exam, pupils equal and round, CN II-XII normal Psychiatric: other (mild restlessness) CBC and BMP: 08/05/18 03:46 08/03/18 04:23 ABG, PT/INR, D-dimer: ABG POC ABG pH 7.293 (7.35-7.45) L 07/30/18 03:51 POC ABG pCO2 68.1 (35-45) H 07/30/18 03:51 POC ABG pO2 85 (80-105) 07/30/18 03:51 POC ABG HCO3 33.0 07/30/18 03:51 POC ABG Total CO2 35 07/30/18 03:51 POC ABG O2 Sat 95 07/30/18 03:51 PT/INR, D-dimer D-Dimer 290.28 ng/mlDDU (0-234) H 07/26/18 19:41 Abnormal lab findings: Abnormal Labs 07/26/18 07/26/18 07/26/18 19:41 19:41 19:41 WBC 13.0 H RBC Lymph % (Auto) 7.5 L Lymph # 1.0 L Seg Neutrophils % 85.5 H Seg Neutrophils # 11.1 H D-Dimer 290.28 H POC ABG pH POC ABG pCO2 POC ABG pO2 Sodium Potassium Chloride 91.9 L Carbon Dioxide 35 H BUN 23 H Glucose 179 H POC Glucose Lactic Acid Calcium 10.3 H Magnesium 2.90 H Triglycerides 07/26/18 07/26/18 07/27/18 20:58 23:24 02:50 WBC RBC Lymph % (Auto) Lymph # Seg Neutrophils % Seg Neutrophils # D-Dimer POC ABG pH 7.237 L 7.257 L POC ABG pCO2 83.7 H 78.4 H POC ABG pO2 110 H 52 L Sodium Potassium Chloride Carbon Dioxide BUN Glucose POC Glucose Lactic Acid 3.30 H* Calcium Magnesium Triglycerides 07/27/18 07/27/18 07/27/18 02:50 06:14 08:58 WBC RBC Lymph % (Auto) Lymph # Seg Neutrophils % Seg Neutrophils # D-Dimer POC ABG pH 7.269 L POC ABG pCO2 76.4 H POC ABG pO2 Sodium 136 L Potassium Chloride 91.4 L Carbon Dioxide 31 H BUN 22 H Glucose 312 H POC Glucose Lactic Acid 2.30 H* Calcium Magnesium 2.40 H Triglycerides 07/27/18 07/27/18 07/27/18 17:20 17:30 19:39 WBC RBC Lymph % (Auto) Lymph # Seg Neutrophils % Seg Neutrophils # D-Dimer POC ABG pH 7.138 L 7.135 L POC ABG pCO2 109.4 H 114.0 H POC ABG pO2 69 L 50 L Sodium Potassium Chloride Carbon Dioxide BUN Glucose POC Glucose 203 H Lactic Acid Calcium Magnesium Triglycerides 07/27/18 07/27/18 07/28/18 20:18 23:35 04:52 WBC RBC Lymph % (Auto) Lymph # Seg Neutrophils % Seg Neutrophils # D-Dimer POC ABG pH POC ABG pCO2 62.7 H 58.3 H POC ABG pO2 220 H 68 L Sodium Potassium Chloride Carbon Dioxide BUN Glucose POC Glucose 171 H Lactic Acid Calcium Magnesium Triglycerides 07/28/18 07/28/18 07/28/18 05:24 11:55 15:03 WBC RBC 3.54 L Lymph % (Auto) Lymph # Seg Neutrophils % Seg Neutrophils # D-Dimer POC ABG pH POC ABG pCO2 POC ABG pO2 Sodium Potassium Chloride Carbon Dioxide BUN Glucose POC Glucose 223 H 220 H Lactic Acid Calcium Magnesium Triglycerides 07/28/18 07/28/18 07/28/18 15:03 15:03 16:01 WBC RBC Lymph % (Auto) Lymph # Seg Neutrophils % Seg Neutrophils # D-Dimer POC ABG pH 7.188 L POC ABG pCO2 72.5 H POC ABG pO2 67 L Sodium Potassium Chloride 96.2 L Carbon Dioxide 36 H BUN 26 H Glucose 194 H POC Glucose Lactic Acid 2.20 H* Calcium Magnesium Triglycerides 07/28/18 07/29/18 07/29/18 18:23 00:02 05:00 WBC RBC Lymph % (Auto) Lymph # Seg Neutrophils % Seg Neutrophils # D-Dimer POC ABG pH POC ABG pCO2 POC ABG pO2 Sodium Potassium Chloride Carbon Dioxide 31 H BUN 25 H Glucose 204 H POC Glucose 197 H 210 H Lactic Acid Calcium Magnesium Triglycerides 07/29/18 07/29/18 07/29/18 05:08 06:09 11:29 WBC RBC Lymph % (Auto) Lymph # Seg Neutrophils % Seg Neutrophils # D-Dimer POC ABG pH POC ABG pCO2 59.3 H POC ABG pO2 Sodium Potassium Chloride Carbon Dioxide BUN Glucose POC Glucose 204 H 225 H Lactic Acid Calcium Magnesium Triglycerides 07/29/18 07/30/18 07/30/18 18:23 00:02 03:51 WBC RBC Lymph % (Auto) Lymph # Seg Neutrophils % Seg Neutrophils # D-Dimer POC ABG pH 7.293 L POC ABG pCO2 68.1 H POC ABG pO2 Sodium Potassium Chloride Carbon Dioxide BUN Glucose POC Glucose 196 H 262 H Lactic Acid Calcium Magnesium Triglycerides 07/30/18 07/30/18 07/30/18 05:01 07:27 07:27 WBC RBC 3.59 L Lymph % (Auto) Lymph # Seg Neutrophils % Seg Neutrophils # D-Dimer POC ABG pH POC ABG pCO2 POC ABG pO2 Sodium Potassium Chloride Carbon Dioxide BUN 25 H Glucose 316 H POC Glucose 278 H Lactic Acid Calcium Magnesium Triglycerides 07/30/18 07/30/18 07/30/18 12:19 16:13 17:38 WBC RBC Lymph % (Auto) Lymph # Seg Neutrophils % Seg Neutrophils # D-Dimer POC ABG pH POC ABG pCO2 POC ABG pO2 Sodium Potassium Chloride Carbon Dioxide BUN Glucose POC Glucose 331 H 315 H Lactic Acid Calcium Magnesium Triglycerides 207 H 07/30/18 07/31/18 07/31/18 23:53 04:39 05:35 WBC RBC Lymph % (Auto) Lymph # Seg Neutrophils % Seg Neutrophils # D-Dimer POC ABG pH POC ABG pCO2 POC ABG pO2 Sodium Potassium Chloride 94.8 L Carbon Dioxide BUN 31 H Glucose 384 H POC Glucose 358 H 300 H Lactic Acid Calcium Magnesium 2.80 H Triglycerides 07/31/18 07/31/18 08/01/18 12:30 18:05 03:19 WBC 17.7 H RBC Lymph % (Auto) Lymph # Seg Neutrophils % Seg Neutrophils # D-Dimer POC ABG pH POC ABG pCO2 POC ABG pO2 Sodium Potassium Chloride Carbon Dioxide BUN Glucose POC Glucose 259 H 119 H Lactic Acid Calcium Magnesium Triglycerides 08/01/18 08/01/18 08/01/18 03:19 06:08 11:49 WBC RBC Lymph % (Auto) Lymph # Seg Neutrophils % Seg Neutrophils # D-Dimer POC ABG pH POC ABG pCO2 POC ABG pO2 Sodium Potassium 5.1 H D Chloride 95.8 L Carbon Dioxide 38 H D BUN 38 H Glucose 116 H POC Glucose 129 H 329 H Lactic Acid Calcium Magnesium Triglycerides 08/01/18 08/02/18 08/02/18 17:21 00:16 04:39 WBC RBC Lymph % (Auto) Lymph # Seg Neutrophils % Seg Neutrophils # D-Dimer POC ABG pH POC ABG pCO2 POC ABG pO2 Sodium Potassium Chloride Carbon Dioxide BUN Glucose POC Glucose 108 H 141 H 138 H Lactic Acid Calcium Magnesium Triglycerides 08/02/18 08/02/18 08/02/18 05:08 05:08 08:22 WBC 15.2 H RBC Lymph % (Auto) Lymph # Seg Neutrophils % Seg Neutrophils # D-Dimer POC ABG pH POC ABG pCO2 POC ABG pO2 Sodium Potassium Chloride 94.7 L Carbon Dioxide 40 H BUN 39 H Glucose 153 H POC Glucose 158 H Lactic Acid Calcium Magnesium Triglycerides 08/02/18 08/02/18 08/03/18 12:37 18:42 04:23 WBC RBC Lymph % (Auto) Lymph # Seg Neutrophils % Seg Neutrophils # D-Dimer POC ABG pH POC ABG pCO2 POC ABG pO2 Sodium Potassium Chloride 94.0 L Carbon Dioxide 37 H BUN 42 H Glucose 112 H POC Glucose 220 H 206 H Lactic Acid Calcium 10.4 H Magnesium Triglycerides 08/03/18 08/03/18 08/03/18 07:51 12:09 18:22 WBC RBC Lymph % (Auto) Lymph # Seg Neutrophils % Seg Neutrophils # D-Dimer POC ABG pH POC ABG pCO2 POC ABG pO2 Sodium Potassium Chloride Carbon Dioxide BUN Glucose POC Glucose 145 H 281 H 267 H Lactic Acid Calcium Magnesium Triglycerides 08/03/18 08/03/18 08/04/18 21:26 23:24 11:21 WBC 18.6 H RBC Lymph % (Auto) Lymph # Seg Neutrophils % Seg Neutrophils # D-Dimer POC ABG pH POC ABG pCO2 POC ABG pO2 Sodium Potassium Chloride Carbon Dioxide BUN Glucose POC Glucose 220 H 266 H Lactic Acid Calcium Magnesium Triglycerides 08/04/18 08/05/18 08/05/18 17:06 00:03 03:46 WBC 13.9 H RBC Lymph % (Auto) Lymph # Seg Neutrophils % Seg Neutrophils # D-Dimer POC ABG pH POC ABG pCO2 POC ABG pO2 Sodium Potassium Chloride Carbon Dioxide BUN Glucose POC Glucose 136 H 308 H Lactic Acid Calcium Magnesium Triglycerides 08/05/18 06:35 WBC RBC Lymph % (Auto) Lymph # Seg Neutrophils % Seg Neutrophils # D-Dimer POC ABG pH POC ABG pCO2 POC ABG pO2 Sodium Potassium Chloride Carbon Dioxide BUN Glucose POC Glucose 235 H Lactic Acid Calcium Magnesium Triglycerides
--- NOTE | 2018-08-05 14:18 | Consultation ---
History of Present Illness Consult date: 08/05/18 - History of present illness History of present illness: 63 yo F with hx of COPD, tobacco dependence, chronic respiratory failure presented to hospital by EMS with shortness of breath. She is a poor historian and all history is obtained from the chart. The patient was treated for shortness of breath accordingly and admitted for treatment of pneumonia. Upon equal opportunity director evaluation today the patient was noted to have a fluctuant area over the left lateral upper thigh. The patient states this has been present for many years. It is not bothersome. Past History Past Medical History: COPD, hypertension, other (asthma) Past Surgical History: No surgical history Social history: smoking (she has 30 years history of cigarette smoking. She currently smokes about 5 sticks of cigarettes per day. She admits to occasional alcohol and marijuana use but denies other illicit or IV drug use) Family history: other (reviewed and noncontributory) Medications and Allergies Allergies Allergy/AdvReac Type Severity Reaction Status Date / Time No Known Allergies Allergy Verified 11/27/13 14:11 Home Medications Medication Instructions Recorded Confirmed Last Taken Type Ferrous Gluconate [Fergon 325 MG 325 mg PO TID #90 tablet 06/15/13 08/01/18 07/26/18 Rx tab] Mv,Rehan,Min/Iron/Folic Acid/Lut 1 tab PO DAILY 10/17/13 08/01/18 07/26/18 History [Complete Multi Tablet] ALBUTEROL Inhaler (OR & NICU) 2 puff INHALATION Q4HR PRN #1 inha 06/17/1707/26/18 Rx [ProAir HFA Inhaler] ALPRAZolam [Xanax TAB] 0.25 mg PO Q12HR PRN #30 day 06/17/17 08/01/18 Unknown Rx Arformoterol Nebu [Brovana Nebu] 15 mcg IH Q12HRT #30 day 06/17/17 08/01/18 07/26/18 Rx Budesonide [Pulmicort Respules] 0.5 mg IH Q12HRT #30 day 06/17/17 08/01/18/11/16 Rx Ipratropium/Albuterol Sulfate 1 ampul IH Q4HRT PRN #30 day 06/17/17 08/01/18 07/26/18 Rx [DUONEB *Not for PRN Use*] Montelukast [Singulair] 10 mg PO QHS #30 tablet 06/17/17 08/01/18 07/26/18 Rx Polyethylene Glycol 3350 [Miralax 17 gm PO QDAY PRN #15 day 06/17/17 08/01/18 Unknown Rx 3350] buPROPion XL [Wellbutrin XL] 150 mg PO QDAY #30 day 06/17/17 08/01/18 07/26/18 Rx Nystatin [Nystatin SUSP] 5 ml PO QID #14 day 06/18/17 08/01/18 07/26/18 Rx Acetaminophen [Acetaminophen TAB] 650 mg PO Q4H PRN tablet 08/05/18 Unknown Rx Arformoterol Nebu [Brovana Nebu] 15 mcg IH Q12HRT ml 08/05/18 Unknown Rx Budesonide [Pulmicort Respules] 0.5 mg IH Q12HRT nebu 08/05/18 Unknown Rx Haloperidol [Haldol] 2 mg PO Q8H PRN tablet 08/05/18 Unknown Rx Insulin NPH/Regular [NovoLIN 70/30] 16 unit SUB-Q BIDDIAB units 08/05/18 Unknown Rx Ipratropium/Albuterol Sulfate 1 ampul IH Q4HRT ampul.neb 08/05/18 Unknown Rx [DUONEB *Not for PRN Use*] Lansoprazole Solutab [Prevacid 30 mg FEEDTUBE QDAY tab.rapdis 08/05/18 Unknown Rx Solutab] Lispro Insulin [Humalog] 0 unit SUB-Q Q6HR units 08/05/18 Unknown Rx Nicotine [Habitrol] 7 mg TD QDAY patch 08/05/18 Unknown Rx QUEtiapine [SEROquel] 25 mg PO QHS tablet 08/05/18 Unknown Rx dilTIAZem [Cardizem] 30 mg PO Q6HR tablet 08/05/18 Unknown Rx methylPREDNISolone Sod Suc 60 mg IV Q6H vial 08/05/18 Unknown Rx [Solu-MEDROL] Active Meds: Active Medications Acetaminophen (Tylenol) 650 mg PO Q4H PRN PRN Reason: Pain MILD(1-3)/Fever >100.5/NAVARRO Albuterol/Ipratropium (Duoneb *Not For Prn Use*) 1 ampul IH Q4HRT [facility] Last Admin: 08/05/18 07:39 Dose: 1 ampul Documented by: Arformoterol Tartrate (Brovana Nebu) 15 mcg IH Q12HRT [facility] Last Admin: 08/05/18 07:40 Dose: Not Given Documented by: Budesonide (Pulmicort) 0.5 mg IH Q12HRT [facility] Last Admin: 08/05/18 07:39 Dose: 0.5 mg Documented by: Dextrose (D50w (25gm) Syringe) 50 ml IV PRN PRN PRN Reason: Hypoglycemia Diltiazem HCl (Cardizem) 30 mg PO Q6HR [facility] Last Admin: 08/05/18 06:04 Dose: 30 mg Documented by: Enoxaparin Sodium (Lovenox) 40 mg SUB-Q QDAY [facility] Last Admin: 08/05/18 10:00 Dose: 40 mg Documented by: Haloperidol (Haldol) 2 mg PO Q8H PRN PRN Reason: Agitation Last Admin: 08/04/18 22:11 Dose: 2 mg Documented by: Haloperidol Lactate (Haldol) 5 mg IM ONCE PRN PRN Reason: Agitation and anxiety Hydrophilic Ointment (Vaseline Lip Therapy) 1 applic TP DIRECT PRN PRN Reason: Dry Lips Last Admin: 08/04/18 05:58 Dose: 1 applic Documented by: Insulin Human Isoph/Insulin Regular (Humulin 70/30) 16 unit SUB-Q BIDDIAB [facility] Last Admin: 08/05/18 10:01 Dose: 16 unit Documented by: Insulin Human Lispro (Humalog) 0 unit SUB-Q Q6HR [facility]; Protocol Last Admin: 08/05/18 06:40 Dose: 4 unit Documented by: Lansoprazole (Prevacid Solutab) 30 mg FEEDTUBE QDAY [facility] Last Admin: 08/05/18 10:00 Dose: 30 mg Documented by: Lorazepam (Ativan) 1 mg IV Q4H PRN PRN Reason: Anxiety Last Admin: 08/04/18 22:11 Dose: 1 mg Documented by: Methylprednisolone Sodium Succinate (Solu-Medrol) 60 mg IV Q6H [facility] Last Admin: 08/05/18 06:09 Dose: 60 mg Documented by: Morphine Sulfate (Morphine) 2 mg IV Q4H PRN PRN Reason: Pain, Moderate (4-6) Last Admin: 08/03/18 21:46 Dose: 2 mg Documented by: Nicotine (Habitrol) 7 mg TD QDAY [facility] Last Admin: 08/05/18 10:05 Dose: 7 mg Documented by: Ondansetron HCl (Zofran) 4 mg IV Q8H PRN PRN Reason: Nausea And Vomiting Quetiapine Fumarate (Seroquel) 25 mg PO QHS [facility] Last Admin: 08/04/18 22:11 Dose: 25 mg Documented by: Sodium Chloride (Sodium Chloride Flush Syringe 10 Ml) 10 ml IV BID [facility] Last Admin: 08/04/18 22:12 Dose: 10 ml Documented by: Sodium Chloride (Sodium Chloride Flush Syringe 10 Ml) 10 ml IV PRN PRN PRN Reason: LINE FLUSH Last Admin: 08/02/18 11:03 Dose: 10 ml Documented by: Review of Systems All systems: negative (10 pt ROS performed and negative except for that listed in HPI) Exam Vital Signs Pulse Resp Pulse Ox 98 H 20 100 07/26/18 19:16 07/26/18 19:16 07/26/18 19:16 Narrative exam: Gen: Awake and alert. NAD. ENT; no scleral icterus or conjunctival pallor CV: s1, s2+. tachy Resp: even and unlabored Abd: soft, protuberant, NT Ext; L upper lateral thigh/hip area with fullness and fluctuance. No erythema, cellulitis, drainage, or TTP. Results - Labs 08/05/18 03:46 08/03/18 04:23 Abnormal lab results 08/04/18 08/05/18 08/05/18 Range/Units 17:06 00:03 03:46 WBC 13.9 H (4.5-11.0) K/mm3 POC Glucose 136 H 308 H (70-105) 08/05/18 08/05/18 Range/Units 06:35 12:07 WBC (4.5-11.0) K/mm3 POC Glucose 235 H 409 H (70-105) Assessment and Plan 63 yo F with 1. left upper thigh fluid collection - likely cyst based on chronicity 2. Acute on chronic resp failure due to COPD exacerbation and pneumonia 3. Sepsis secondary to pneumonia. 4. Pneumonia right upper lobe Plan; 1. continue treatment per medical and pulm team for PNA and resp failure 2. no surgical intervention indicated for cyst. Pt states it has been there for many years and is not bothersome Thank you, please call with questions.
[2018-08-05 17:46] VITALS: BP 132/72
== END 2018-08-05 18:45 | DRG 871 ==
LOC: ED 19:09 → 4A 23:46 → CC1 07-27 18:18 → IMCU 08-01 22:14
PROVIDERS: ADMIT Internal Medicine; ATTEND Internal Medicine
PROC: 4A033R1 Measurement of Arterial Saturation, Peripheral, Percutaneous Approach (ICD-10-PCS; 2018-07-26)
PROC: 5A09357 Assistance with Respiratory Ventilation, Less than 24 Consecutive Hours, Continuous Positive Airway Pressure (ICD-10-PCS; 2018-07-26)
PROC: 5A1945Z Respiratory Ventilation, 24-96 Consecutive Hours (ICD-10-PCS; principal; 2018-07-27)
PROC: 0BH17EZ Insertion of Endotracheal Airway into Trachea, Via Natural or Artificial Opening (ICD-10-PCS; 2018-07-27)
PROC: 5A09357 Assistance with Respiratory Ventilation, Less than 24 Consecutive Hours, Continuous Positive Airway Pressure (ICD-10-PCS; 2018-07-27)
PROC: 5A09357 Assistance with Respiratory Ventilation, Less than 24 Consecutive Hours, Continuous Positive Airway Pressure (ICD-10-PCS; 2018-07-31)
PROC: 5A09357 Assistance with Respiratory Ventilation, Less than 24 Consecutive Hours, Continuous Positive Airway Pressure (ICD-10-PCS; 2018-08-01)
PROC: 5A09357 Assistance with Respiratory Ventilation, Less than 24 Consecutive Hours, Continuous Positive Airway Pressure (ICD-10-PCS; 2018-08-02)
PROC: 5A09357 Assistance with Respiratory Ventilation, Less than 24 Consecutive Hours, Continuous Positive Airway Pressure (ICD-10-PCS; 2018-08-03)
PROC: 5A09357 Assistance with Respiratory Ventilation, Less than 24 Consecutive Hours, Continuous Positive Airway Pressure (ICD-10-PCS; 2018-08-04)
PROC: 5A09357 Assistance with Respiratory Ventilation, Less than 24 Consecutive Hours, Continuous Positive Airway Pressure (ICD-10-PCS; 2018-08-05)
DX: A41.9 Sepsis, unspecified organism (principal); J96.21 Acute and chronic respiratory failure with hypoxia; J18.1 Lobar pneumonia, unspecified organism; J96.22 Acute and chronic respiratory failure with hypercapnia; J45.901 Unspecified asthma with (acute) exacerbation; J44.1 Chronic obstructive pulmonary disease with (acute) exacerbation; J44.0 Chronic obstructive pulmonary disease with (acute) lower respiratory infection; R73.9 Hyperglycemia, unspecified; E83.41 Hypermagnesemia; E83.52 Hypercalcemia; F41.9 Anxiety disorder, unspecified; F12.90 Cannabis use, unspecified, uncomplicated; F17.210 Nicotine dependence, cigarettes, uncomplicated; Z79.51 Long term (current) use of inhaled steroids; Z79.899 Other long term (current) drug therapy; Z79.01 Long term (current) use of anticoagulants; Z71.6 Tobacco abuse counseling
CPT/HCPCS: 31500; 36415; 36600; 71045; 71275; 74018; 80048; 80053; 82140; 82271; 82550; 82803; 82962; 83036; 83735; 84100; 84439; 84478; 84484; 85025; 85027; 85379; 87040; 87070; 87205; 87400; 93005; 93010; 94002; 94003; 94640; 94660; 94760; 96365; 96367; 96372; 99406; G0378; C9113; J0171; J1630; J1650; J1815; J1940; J1956; J2060; J2250; J2270; J2405; J2704; J2930; J3475; J7030; J7040; J7042; Q9967

== ENCOUNTER 2019-04-27 06:58 | Inpatient (IN) | payer MEDICARE ==
--- NOTE | 2019-04-27 07:30 | Emergency Department Report ---
ED Shortness of Breath HPI - General Chief Complaint: Dyspnea/Respdistress Stated Complaint: DESIREE Time Seen by Provider: 04/27/19 07:23 Source: patient Mode of arrival: Stretcher Limitations: No Limitations - History of Present Illness Initial Comments: 63-year-old female with chronic lung disease on home oxygen. She states he's been short of breath since yesterday. She is a poor historian. She does complain of headache but was unaware of fever and denies chills. She does have a previous history of intubation or BiPAP has indicated below. She states that she does not have a productive cough. She wasn't aware of her leg swelling. She denies any recent travel. She is not complaining of chest pain. Per her last discharge summary: Hospitalization Reason for admission: shortness of breath Condition: Stable Hospital course: Patient is a 63-year-old -[place] female with history of asthma and COPD who presented to the ED on account of 1 day history of worsening shortness of breath, cough, diaphoresis, runny nose, headaches and lightheadedness. On arrival to the ED, patient was in respiratory distress and had to be placed on BiPAP and admitted to Tele. She was diagnosed with acute on chronic respiratory failure secondary to COPD exacerbation and pneumonia. She was put on Levaquin and Solu-Medrol and DuoNeb. Despite management, respiratory failure became worse, rapid response called . ABG showed worsening respiratory failure so she was intubated, placed on vent transferred to ICU on 07/27/18. She improved on ventilator and was extubated 07/31/18. Less short of breath. Patient now on high flow oxygen and awaiting LTAC referral for slow continued wean. Patient with intermittent anxiety leading to tachycardia in addition to severe deconditioning Acute on chronic resp failure due to COPD exacerbation and pneumonia Initially was on BIPAP, however developed worse respiratory failure therefore intubated, put on vent, transferred to ICU, now extubated 07/31/18 Currently on high flow Oxygen Continue management per Pulmonary COPD exacerbation Cont solu-medrol, Duoneb Continue management per Pulmonary. Agree to LTAC Anxiety Disorder: Prn Haldol Sepsis secondary to pneumonia. Blood cultures: No growth Pneumonia right upper lobe seen on CT Chest levaquin- Complete 5-7 Days Total Hypertension Monitor BP Hyperglycemia, uncontrolled Continue Novlin 70/30 to 16 Units bid No history of diabetes, A1C 5.6 Deconditioning: PT/OT once o2 weaned to acceptable level Tobacco Use disorder. Counselling provided for 15mins, patient verbalized understanding and states she will not smoke again Thigh Abscess: per surgery chronic and likely a cyst, no surgical indication MD Complaint: shortness of breath -: hour(s), days(s) Severity: mild (complains of some mild headache) Known History Of: COPD - Related Data Home Medications Medication Instructions Recorded Confirmed Last Taken Mv,Rehan,Min/Iron/Folic Acid/Lut 1 tab PO DAILY 10/17/13 08/01/18 07/26/18 [Complete Multi Tablet] Previous Rx's Medication Instructions Recorded Last Taken Type Ferrous Gluconate [Fergon 325 MG 325 mg PO TID #90 tablet 06/15/13 07/26/18 Rx tab] ALBUTEROL Inhaler (OR & NICU) 2 puff INHALATION Q4HR PRN #1 inha 06/17/17 07/26/18 Rx [ProAir HFA Inhaler] ALPRAZolam [Xanax TAB] 0.25 mg PO Q12HR PRN #30 day 06/17/17 Unknown Rx Arformoterol Nebu [Brovana Nebu] 15 mcg IH Q12HRT #30 day 06/17/17 07/26/18 Rx Budesonide [Pulmicort Respules] 0.5 mg IH Q12HRT #30 day 06/17/17 07/26/18 Rx Ipratropium/Albuterol Sulfate 1 ampul IH Q4HRT PRN #30 day 06/17/17 07/26/18 Rx [DUONEB *Not for PRN Use*] Montelukast [Singulair] 10 mg PO QHS #30 tablet 06/17/17 07/26/18 Rx Polyethylene Glycol 3350 [Miralax 17 gm PO QDAY PRN #15 day 06/17/17 Unknown Rx 3350] buPROPion XL [Wellbutrin XL] 150 mg PO QDAY #30 day 06/17/17 07/26/18 Rx Nystatin [Nystatin SUSP] 5 ml PO QID #14 day 06/18/17 07/26/18 Rx Acetaminophen [Acetaminophen TAB] 650 mg PO Q4H PRN tablet 08/05/18 Unknown Rx Arformoterol Nebu [Brovana Nebu] 15 mcg IH Q12HRT ml 08/05/18 Unknown Rx Budesonide [Pulmicort Respules] 0.5 mg IH Q12HRT nebu 08/05/18 Unknown Rx Haloperidol [Haldol] 2 mg PO Q8H PRN tablet 08/05/18 Unknown Rx Insulin NPH/Regular [NovoLIN 70/30] 16 unit SUB-Q BIDDIAB units 08/05/18 Unknown Rx Ipratropium/Albuterol Sulfate 1 ampul IH Q4HRT ampul.neb 08/05/18 Unknown Rx [DUONEB *Not for PRN Use*] Lansoprazole Solutab [Prevacid 30 mg FEEDTUBE QDAY tab.rapdis 08/05/18 Unknown Rx Solutab] Lispro Insulin [HumaLOG] 0 unit SUB-Q Q6HR units 08/05/18 Unknown Rx Nicotine [Habitrol] 7 mg TD QDAY patch 08/05/18 Unknown Rx QUEtiapine [SEROquel] 25 mg PO QHS tablet 08/05/18 Unknown Rx dilTIAZem [Cardizem] 30 mg PO Q6HR tablet 08/05/18 Unknown Rx methylPREDNISolone Sod Suc 60 mg IV Q6H vial 08/05/18 Unknown Rx [Solu-MEDROL] Allergies Allergy/AdvReac Type Severity Reaction Status Date / Time No Known Allergies Allergy Verified 11/27/13 14:11 ED Review of Systems ROS: Stated complaint: DESIREE Other details as noted in HPI Constitutional: denies: chills, fever (unaware) Eyes: denies: eye pain, eye discharge, vision change ENT: denies: ear pain, throat pain Respiratory: cough (occasional nonproductive), shortness of breath, wheezing Cardiovascular: denies: chest pain, palpitations Endocrine: no symptoms reported Gastrointestinal: denies: abdominal pain, nausea, diarrhea Genitourinary: denies: urgency, dysuria, discharge Musculoskeletal: denies: back pain, joint swelling, arthralgia Skin: denies: rash, lesions Neurological: headache. denies: weakness, paresthesias Psychiatric: denies: anxiety, depression Hematological/Lymphatic: denies: easy bleeding, easy bruising ED Past Medical Hx - Past Medical History Hx Hypertension: Yes Hx Congestive Heart Failure: Yes Hx GERD: Yes Hx Liver Disease: Yes (Increased Liver enzymes) Hx Renal Disease: Yes Hx Arthritis: Yes Hx Asthma: Yes Hx COPD: Yes - Social History Smoking Status: Current Every Day Smoker - Medications Home Medications: Home Medications Medication Instructions Recorded Confirmed Last Taken Type Ferrous Gluconate [Fergon 325 MG 325 mg PO TID #90 tablet 06/15/13 08/01/18 0 07/26/18 Rx tab] Mv,Rehan,Min/Iron/Folic Acid/Lut 1 tab PO DAILY 10/17/13 08/01/18 07/26/18 History [Complete Multi Tablet] ALBUTEROL Inhaler (OR & NICU) 2 puff INHALATION Q4HR PRN #1 inha 06/17/17 08/01/18 07/26/18 Rx [ProAir HFA Inhaler] ALPRAZolam [Xanax TAB] 0.25 mg PO Q12HR PRN #30 day 06/17/17 08/01/18 Unknown Rx Arformoterol Nebu [Brovana Nebu] 15 mcg IH Q12HRT #30 day 06/17/17 08/01/18 07/26/18 Rx Budesonide [Pulmicort Respules] 0.5 mg IH Q12HRT #30 day 06/17/17 08/01/18 07/26/18 Rx Ipratropium/Albuterol Sulfate 1 ampul IH Q4HRT PRN #30 day 06/17/17 08/01/18 07/26/18 Rx [DUONEB *Not for PRN Use*] Montelukast [Singulair] 10 mg PO QHS #30 tablet 06/17/17 08/01/18 07/26/18 Rx Polyethylene Glycol 3350 [Miralax 17 gm PO QDAY PRN #15 day 06/17/17 08/01/18 Unknown Rx 3350] buPROPion XL [Wellbutrin XL] 150 mg PO QDAY #30 day 06/17/17 08/01/18 07/26/18 Rx Nystatin [Nystatin SUSP] 5 ml PO QID #14 day 06/18/17 08/01/18 07/26/18 Rx Acetaminophen [Acetaminophen TAB] 650 mg PO Q4H PRN tablet 08/05/18 Unknown Rx Arformoterol Nebu [Brovana Nebu] 15 mcg IH Q12HRT ml 08/05/18 Unknown Rx Budesonide [Pulmicort Respules] 0.5 mg IH Q12HRT nebu 08/05/18 Unknown Rx Haloperidol [Haldol] 2 mg PO Q8H PRN tablet 08/05/18 Unknown Rx Insulin NPH/Regular [NovoLIN 70/30] 16 unit SUB-Q BIDDIAB units 08/05/18 Unknown Rx Ipratropium/Albuterol Sulfate 1 ampul IH Q4HRT ampul.neb 08/05/18 Unknown Rx [DUONEB *Not for PRN Use*] Lansoprazole Solutab [Prevacid 30 mg FEEDTUBE QDAY tab.rapdis 08/05/18 Unknown Rx Solutab] Lispro Insulin [HumaLOG] 0 unit SUB-Q Q6HR units 08/05/18 Unknown Rx Nicotine [Habitrol] 7 mg TD QDAY patch 08/05/18 Unknown Rx QUEtiapine [SEROquel] 25 mg PO QHS tablet 08/05/18 Unknown Rx dilTIAZem [Cardizem] 30 mg PO Q6HR tablet 08/05/18 Unknown Rx methylPREDNISolone Sod Suc 60 mg IV Q6H vial 08/05/18 Unknown Rx [Solu-MEDROL] ED Physical Exam - General Limitations: Physical Limitation General appearance: alert, in no apparent distress - Head Head exam: Present: atraumatic, normocephalic - Eye Eye exam: Present: normal appearance - ENT ENT exam: Present: mucous membranes moist - Neck Neck exam: Present: normal inspection. Absent: tenderness, meningismus - Respiratory Respiratory exam: Present: wheezes, accessory muscle use (mild), decreased breath sounds (somewhat). Absent: respiratory distress - Cardiovascular Cardiovascular Exam: Present: regular rate, normal rhythm. Absent: systolic murmur, diastolic murmur, rubs, gallop - GI/Abdominal GI/Abdominal exam: Present: soft, normal bowel sounds. Absent: distended, tenderness, guarding, rebound, rigid - Extremities Exam Extremities exam: Present: normal inspection, other (bilateral 1+ pitting edema). Absent: calf tenderness - Back Exam Back exam: Present: normal inspection - Neurological Exam Neurological exam: Present: alert, oriented X3, CN II-XII intact. Absent: motor sensory deficit - Psychiatric Psychiatric exam: Present: normal mood, flat affect - Skin Skin exam: Present: warm, dry, intact, normal color. Absent: rash ED Course Vital Signs 04/27/19 04/27/19 04/27/19 07:23 07:29 07:30 Temperature 100.3 F H Pulse Rate 150 H 121 H 189 H Pulse Rate [ Anterior Bilateral Throughout] Respiratory 22 26 H 19 Rate Respiratory Rate [Anterior Bilateral Throughout] Blood Pressure 115/51 Blood Pressure 115/51 [Left] O2 Sat by Pulse 95 94 94 Oximetry 04/27/19 04/27/19 04/27/19 07:40 07:46 07:49 Temperature Pulse Rate 147 H Pulse Rate [ 160 H Anterior Bilateral Throughout] Respiratory 25 H 16 Rate Respiratory 28 H Rate [Anterior Bilateral Throughout] Blood Pressure 108/56 Blood Pressure [Left] O2 Sat by Pulse 95 Oximetry 04/27/19 04/27/19 04/27/19 08:00 08:16 08:30 Temperature Pulse Rate 130 H 186 H 128 H Pulse Rate [ Anterior Bilateral Throughout] Respiratory 28 H 18 24 Rate Respiratory Rate [Anterior Bilateral Throughout] Blood Pressure 91/65 94/61 91/65 Blood Pressure [Left] O2 Sat by Pulse 93 93 93 Oximetry 04/27/19 04/27/19 08:46 08:49 Temperature Pulse Rate 153 H Pulse Rate [ Anterior Bilateral Throughout] Respiratory 16 22 Rate Respiratory Rate [Anterior Bilateral Throughout] Blood Pressure 91/65 Blood Pressure [Left] O2 Sat by Pulse 94 Oximetry - Reevaluation(s) Reevaluation #1: Patient has improved somewhat clinically. However arterial blood gas shows the need for BiPAP. We will apply. The patient has pneumonia and has been previously intubated under similar circumstances. She does not require intubation now. However I think it would be best that she be admitted to the IMCU. 04/27/19 09:30 ED Medical Decision Making - Lab Data Result diagrams: 04/27/19 07:38 04/27/19 07:38 Laboratory Results - last 24 hr 04/27/19 04/27/19 04/27/19 07:38 07:38 07:38 WBC 16.9 H RBC 4.56 Hgb 12.3 Hct 38.9 MCV 85 MCH 27 L MCHC 32 RDW 15.6 H Plt Count 222 Lymph % (Auto) 8.5 L [place] % (Auto) 7.0 Eos % (Auto) 0.2 Baso % (Auto) 0.5 Lymph # 1.4 [place] # 1.2 H Eos # 0.0 Baso # 0.1 Seg Neutrophils % 83.8 H Seg Neutrophils # 14.1 H PT 13.2 INR 1.01 APTT 25.4 Sodium 140 Potassium 3.7 Chloride 93.5 L Carbon Dioxide 31 H Anion Gap 19 BUN 12 Creatinine 0.9 Estimated GFR > 60 BUN/Creatinine Ratio 13 Glucose 162 H Lactic Acid Calcium 9.4 Magnesium 1.60 L Total Bilirubin AST ALT Alkaline Phosphatase Total Creatine Kinase 117 CK-MB (CK-2) 1.6 CK-MB (CK-2) Rel Index 1.3 Troponin T < 0.010 Total Protein Albumin Albumin/Globulin Ratio 04/27/19 04/27/19 07:38 07:49 WBC RBC Hgb Hct MCV MCH MCHC RDW Plt Count Lymph % (Auto) [place] % (Auto) Eos % (Auto) Baso % (Auto) Lymph # [place] # Eos # Baso # Seg Neutrophils % Seg Neutrophils # PT INR APTT Sodium Potassium Chloride Carbon Dioxide Anion Gap BUN Creatinine Estimated GFR BUN/Creatinine Ratio Glucose Lactic Acid 1.30 Calcium Magnesium Total Bilirubin 0.50 AST 18 ALT 33 Alkaline Phosphatase 54 Total Creatine Kinase CK-MB (CK-2) CK-MB (CK-2) Rel Index Troponin T Total Protein 6.1 L Albumin 4.0 Albumin/Globulin Ratio 1.9 - EKG Data -: EKG Interpreted by Mt EKG shows normal: axis (normal) Rate: tachycardia (multifocal atrial tachycardia) - EKG Data Interpretation: nonspecific ST-T wave nazanin - Radiology Data Radiology results: image reviewed (large right lower lobe pneumonia) Large right lower lobe pneumonia Critical Care Time: Yes Critical care time in (mins) excluding proc time.: 90 Critical care attestation.: If time is entered above; I have spent that time in minutes in the direct care of this critically ill patient, excluding procedure time. ED Disposition Clinical Impression: COPD exacerbation Pneumonia Qualifiers: Pneumonia type: due to unspecified organism Laterality: right Lung location: lower lobe of lung Qualified Code(s): J18.9 - Pneumonia, unspecified organism Respiratory failure Qualifiers: Chronicity: acute on chronic Respiratory failure complication: hypoxia and hypercapnia Qualified Code(s): J96.21 - Acute and chronic respiratory failure with hypoxia; J96.22 - Acute and chronic respiratory failure with hypercapnia Disposition: DC-09 OP ADMIT IP TO THIS HOSP Is pt being admited?: Yes Does the pt Need Aspirin: Yes Condition: Stable Instructions: Chronic Obstructive Pulmonary Disease (ED), Bacterial Pneumonia (ED) Time of Disposition: 08:47
[2019-04-27] MEDS ORDERED: SODIUM CHLORIDE 0.9% 1000 ML 500 ML IV ONE (07:35)
[2019-04-27] MEDS ORDERED: MAGNESIUM SULFATE 2 GM/50 ML BAG IV ONE (07:36)
[2019-04-27] MEDS ORDERED: LEVALBUTEROL 0.63 MG/3 ML NEBU IH ONE (07:36)
[2019-04-27] MEDS ORDERED: CEFEPIME/NS 1 GM/100 ML 1 GM/100 ML BAG IV ONE (07:36)
[2019-04-27] MEDS ORDERED: ACETAMINOPHEN 325 MG/10.15 ML ORAL LIQD UNIT DOSE PO ONE (07:36)
[2019-04-27 08:29] LABS: Basophils # (Auto) 0.1 K/mm3 (0.0-0.1); Basophils % (Auto) 0.5 % (0.0-1.8); Eosinophils % (Auto) 0.2 % (0.0-4.3); Hematocrit 38.9 % (30.3-42.9); Hemoglobin 12.3 gm/dl (10.1-14.3); Lymphocytes # (Auto) 1.4 K/mm3 (1.2-5.4); Lymphocytes % (Auto) 8.5 % (13.4-35.0); Mean Corpuscular HGB Conc 32 % (30-34); Mean Corpuscular Volume 85 fl (79-97); Monocytes # (Auto) 1.2 K/mm3 (0.0-0.8); Platelet Count 222 K/mm3 (140-440); Red Blood Count 4.56 M/mm3 (3.65-5.03); Red Cell Distribution Width 15.6 % (13.2-15.2)
[2019-04-27 08:33] LABS: INR 1.01 (0.87-1.13)
[2019-04-27 08:35] LABS: Partial Thromboplastin Time 25.4 Sec. (24.2-36.6)
[2019-04-27 08:38] LABS: Creatine Kinase MB 1.6 ng/mL (0.0-4.0)
[2019-04-27 08:41] LABS: Alanine Aminotransferase 33 units/L (7-56)
[2019-04-27 08:42] LABS: BUN/Creatinine Ratio 13; Blood Urea Nitrogen 12 mg/dL (7-17); Calcium 9.4 mg/dL (8.4-10.2); Hemolysis Index 1
[2019-04-27] MEDS ORDERED: ASPIRIN 81 MG TAB CHEW PO ONE (08:48)
--- NOTE | 2019-04-27 08:59 | XRay Report ---
CHEST 1 VIEW INDICATION: Acute dyspnea. COMPARISON: 08/01/2018 FINDINGS: Support devices: None. Heart: Within normal limits. Lungs/Pleura: Patchy right basilar airspace disease with clear left lung. Additional findings: None. IMPRESSION: 1. Patchy right basilar airspace disease worrisome for pneumonia. Signer Name: Elias Barahona MD Signed: 04/27/2019 8:55 AM Workstation Name: [facility] [id number]
[2019-04-27 09:33] LABS: Bilirubin,Direct < 0.2 mg/dL (0-0.2)
[2019-04-27] MEDS ORDERED: VANCOMYCIN PHARMACY TO DOSE IV SCH (10:00)
[2019-04-27] MEDS ORDERED: VANCOMYCIN 2,000 MG in SODIUM CHLORIDE 0.9% 500 ML 500 ML IV ONE (10:00)
[2019-04-27 10:01] LABS: Bacteria,Urine 1+ /HPF (Negative); Bilirubin,Urine NEG (Negative); Blood,Urine NEG (Negative); Color,Urine Yellow (Yellow); Mucus,Urine FEW /HPF; Urobilinogen,Urine < 2.0 mg/dL (<2.0)
[2019-04-27 10:09] LABS: Amphetamine Screen,Urine PRESUMPTIVE NEGATIVE; Benzodiazepines Screen,Urine PRESUMPTIVE NEGATIVE; Cocaine Screen,Urine PRESUMPTIVE NEGATIVE; Methadone Screen,Urine PRESUMPTIVE NEGATIVE; Opiate Screen,Urine PRESUMPTIVE NEGATIVE
[2019-04-27 10:22] LABS: Cannabinoid Screen,Urine PRESUMPTIVE POSITIVE
[2019-04-27] MEDS ORDERED: ACETAMINOPHEN 325 MG TAB PO PRN (11:18)
[2019-04-27] MEDS ORDERED: ONDANSETRON 4 MG/2 ML INJ IV PRN (11:18)
[2019-04-27] MEDS ORDERED: ALBUTEROL 2.5 MG/3 ML NEBU IH PRN (11:22)
[2019-04-27] MEDS ORDERED: DEXTROSE 50% IN WATER (25GM) 50 ML SYRINGE IV PRN (11:30)
--- NOTE | 2019-04-27 11:37 | History and Physical Report ---
History of Present Illness Date of admission: 04/27/19 09:32 Chief complaint: Shortness of breath History of present illness: 63-year-old woman with history of COPD who was previously admitted to the hospital in July of this year for COPD exacerbation. During that admission she was intubated and extubated successfully prior to discharge. She was also treated for pneumonia and deconditioning. And she was sent to [facility]. She was brought in by [facility] for worsening respiratory distress that started at 2 AM this morning. She is c/o of severe shortness of breath. She uses home oxygen, she denies cough, denies sputum production, admits to progressive worsening shortness of breath and wheezing. Symptoms are not relieved by her oxygen or her breathing treatments. She denies chest pain. Past Medical History: COPD, hypertension, tobacco abuse, marijuana abuse Past Surgical History: No surgical history Social history: smoking (she has 30 years history of cigarette smoking. She currently smokes about 5 sticks of cigarettes per day. She admits to occasional alcohol and marijuana use but denies other illicit or IV drug use) Family history: other (reviewed and noncontributory) Medications and Allergies Allergies Allergy/AdvReac Type Severity Reaction Status Date / Time No Known Allergies Allergy Verified 11/27/13 14:11 Home Medications Medication Instructions Recorded Confirmed Last Taken Type Ferrous Gluconate [Fergon 325 MG 325 mg PO TID #90 tablet 06/15/13 04/27/19 Rx tab] ALBUTEROL Inhaler (OR & NICU) 2 puff INHALATION Q4HR PRN #1 inha 06/17/1704/0104/27/19 Rx [ProAir HFA Inhaler] Ipratropium/Albuterol Sulfate 1 ampul IH Q4HRT PRN #30 day 06/17/17 04/27/19 04/27/19 Rx [DUONEB *Not for PRN Use*] Montelukast [Singulair] 10 mg PO QHS #30 tablet 06/17/17 04/27/19 07/26/18 Rx Nystatin [Nystatin SUSP] 5 ml PO QID #14 day 06/18/17 04/27/19 07/26/18 Rx Ipratropium/Albuterol Sulfate 1 ampul IH Q4HRT ampul.neb 08/05/18 04/27/19 04/27/19 Rx [DUONEB *Not for PRN Use*] Nicotine [Habitrol] 7 mg TD QDAY patch 08/05/18 04/27/19 04/27/19 Rx methylPREDNISolone Sod Suc 60 mg IV Q6H vial 08/05/18 04/27/19 04/27/19 Rx [Solu-MEDROL] Active Meds: Active Medications Acetaminophen (Tylenol) 650 mg PO Q4H PRN PRN Reason: Pain MILD(1-3)/Fever >100.5/NAVARRO Albuterol (Proventil) 2.5 mg IH Q4HRT PRN PRN Reason: Shortness Of Breath Albuterol/Ipratropium (Duoneb *Not For Prn Use*) 1 ampul IH Q6HRT AUDELIA Arformoterol Tartrate (Brovana Nebu) 15 mcg IH Q12HRT AUDELIA Budesonide (Pulmicort) 0.5 mg IH Q12HRT AUDELIA Dextrose (D50w (25gm) Syringe) 50 ml IV Q30MIN PRN; Protocol PRN Reason: Hypoglycemia Enoxaparin Sodium (Enoxaparin) 40 mg SUB-Q QDAY@2200 AUDELIA Ferrous Gluconate (Fergon) 325 mg PO TID AUDELIA Vancomycin HCl 2,000 mg/ (Sodium Chloride) 540 mls @ 250 mls/hr IV ONCE ONE Stop: 04/27/19 12:09 Last Admin: 04/27/19 11:19 Dose: 250 mls/hr Documented by: Vancomycin HCl 1,500 mg/ (Sodium Chloride) 530 mls @ 333.333 mls/hr IV Q12H AUDELIA Azithromycin 500 mg/ Sodium (Chloride) 250 mls @ 250 mls/hr IV Q24HR AUDELIA; Protocol Ceftriaxone Sodium (Rocephin/Ns 1 Gm/50 Ml) 1 gm in 50 mls @ 100 mls/hr IV Q12HR AUDELIA; Protocol Insulin Human Lispro (Humalog) 0 unit SUB-Q ACHS AUDELIA; Protocol Methylprednisolone Sodium Succinate (Solu-Medrol) 60 mg IV Q6H AUDELIA Methylprednisolone Sodium Succinate (Solu-Medrol) 40 mg IV Q8HR AUDELIA Montelukast Sodium (Singulair) 10 mg PO QHS AUDELIA Nicotine (Habitrol) 7 mg TD QDAY AUDELIA Ondansetron HCl (Zofran) 4 mg IV Q8H PRN PRN Reason: Nausea And Vomiting Sodium Chloride (Sodium Chloride Flush Syringe 10 Ml) 10 ml IV BID AUDELIA Sodium Chloride (Sodium Chloride Flush Syringe 10 Ml) 10 ml IV PRN PRN PRN Reason: LINE FLUSH Review of Systems All systems: negative Constitutional: weakness, no weight loss, no anorexia Ears, nose, mouth and throat: no ear pain Breasts: deferred Cardiovascular: no chest pain Respiratory: no cough Gastrointestinal: no abdominal pain Rectal: no pain Musculoskeletal: no neck stiffness Integumentary: no rash Neurological: no head injury Psychiatric: no anxiety Endocrine: no cold intolerance Hematologic/Lymphatic: no easy bruising Allergic/Immunologic: no urticaria Exam - Constitutional Vitals: Temp Pulse Resp BP Pulse Ox 100.3 F H 113 H 14 115/55 100 04/27/19 07:29 04/27/19 10:16 04/27/19 10:30 04/27/19 10:30 04/27/19 10:30 General appearance: Present: mild distress, well-nourished - EENT Eyes: Present: PERRL ENT: hearing intact, clear oral mucosa - Neck Neck: Present: supple, normal ROM - Respiratory Respiratory effort: normal Respiratory: bilateral: diminished, wheezing - Cardiovascular Heart Sounds: Present: S1 & S2. Absent: rub, click - Extremities Extremities: pulses symmetrical, No edema Peripheral Pulses: within normal limits - Abdominal General gastrointestinal: Present: soft, non-tender, non-distended, normal bowel sounds Female genitourinary: Present: normal - Integumentary Integumentary: Present: clear, warm, dry - Musculoskeletal Musculoskeletal: gait normal, strength equal bilaterally - Psychiatric Psychiatric: appropriate mood/affect, intact judgment & insight - Neurologic Neurologic: CNII-XII intact, moves all extremities Results - Labs CBC & Chem 7: 04/27/19 07:38 04/27/19 07:38 Labs: Laboratory Last Values WBC 16.9 K/mm3 (4.5-11.0) H 04/27/19 07:38 RBC 4.56 M/mm3 (3.65-5.03) 04/27/19 07:38 Hgb 12.3 gm/dl (10.1-14.3) 04/27/19 07:38 Hct 38.9 % (30.3-42.9) 04/27/19 07:38 MCV 85 fl (79-97) 04/27/19 07:38 MCH 27 pg (28-32) L 04/27/19 07:38 MCHC 32 % (30-34) 04/27/19 07:38 RDW 15.6 % (13.2-15.2) H 04/27/19 07:38 Plt Count 222 K/mm3 (140-440) 04/27/19 07:38 Lymph % (Auto) 8.5 % (13.4-35.0) L 04/27/19 07:38 [place] % (Auto) 7.0 % (0.0-7.3) 04/27/19 07:38 Eos % (Auto) 0.2 % (0.0-4.3) 04/27/19 07:38 Baso % (Auto) 0.5 % (0.0-1.8) 04/27/19 07:38 Lymph # 1.4 K/mm3 (1.2-5.4) 04/27/19 07:38 [place] # 1.2 K/mm3 (0.0-0.8) H 04/27/19 07:38 Eos # 0.0 K/mm3 (0.0-0.4) 04/27/19 07:38 Baso # 0.1 K/mm3 (0.0-0.1) 04/27/19 07:38 Seg Neutrophils % 83.8 % (40.0-70.0) H 04/27/19 07:38 Seg Neutrophils # 14.1 K/mm3 (1.8-7.7) H 04/27/19 07:38 PT 13.2 Sec. (12.2-14.9) 04/27/19 07:38 INR 1.01 (0.87-1.13) 04/27/19 07:38 APTT 25.4 Sec. (24.2-36.6) 04/27/19 07:38 POC ABG pH 7.354 (7.35-7.45) 04/27/19 09:36 POC ABG pCO2 60.9 (35-45) H 04/27/19 09:36 POC ABG pO2 58 (80-105) L 04/27/19 09:36 POC ABG HCO3 33.9 (22-26 mml/L) 04/27/19 09:36 POC ABG Total CO2 36 (23-27mmol/L) 04/27/19 09:36 POC ABG O2 Sat 88 04/27/19 09:36 POC ABG Base Excess 8 ((-2) - (+3)mmol/L) 04/27/19 09:36 FiO2 36 % 04/27/19 09:36 Sodium 140 mmol/L (137-145) 04/27/19 07:38 Potassium 3.7 mmol/L (3.6-5.0) 04/27/19 07:38 Chloride 93.5 mmol/L (98-107) L 04/27/19 07:38 Carbon Dioxide 31 mmol/L (22-30) H 04/27/19 07:38 Anion Gap 19 mmol/L 04/27/19 07:38 BUN 12 mg/dL (7-17) 04/27/19 07:38 Creatinine 0.9 mg/dL (0.7-1.2) 04/27/19 07:38 Estimated GFR > 60 ml/min 04/27/19 07:38 BUN/Creatinine Ratio 13 % 04/27/19 07:38 Glucose 162 mg/dL (65-100) H 04/27/19 07:38 Lactic Acid 1.30 mmol/L (0.7-2.0) 04/27/19 07:49 Calcium 9.4 mg/dL (8.4-10.2) 04/27/19 07:38 Magnesium 1.60 mg/dL (1.7-2.3) L 04/27/19 07:38 Total Bilirubin 0.50 mg/dL (0.1-1.2) 04/27/19 07:38 Direct Bilirubin < 0.2 mg/dL (0-0.2) 04/27/19 07:38 Indirect Bilirubin 0.3 mg/dL 04/27/19 07:38 AST 18 units/L (5-40) 04/27/19 07:38 ALT 33 units/L (7-56) 04/27/19 07:38 Alkaline Phosphatase 54 units/L (35-129) 04/27/19 07:38 Total Creatine Kinase 117 units/L (30-135) 04/27/19 07:38 CK-MB (CK-2) 1.6 ng/mL (0.0-4.0) 04/27/19 07:38 CK-MB (CK-2) Rel Index 1.3 (0-4) 04/27/19 07:38 Troponin T < 0.010 ng/mL (0.00-0.029) 04/27/19 07:38 Total Protein 6.1 g/dL (6.3-8.2) L 04/27/19 07:38 Albumin 4.0 g/dL (3.9-5) 04/27/19 07:38 Albumin/Globulin Ratio 1.9 % 04/27/19 07:38 Urine Color Yellow (Yellow) 04/27/19 09:21 Urine Turbidity Hazy (Clear) 04/27/19 09:21 Urine pH 5.0 (5.0-7.0) 04/27/19 09:21 Ur Specific [place] 1.023 (1.003-1.030) 04/27/19 09:21 Urine Protein 30 mg/dl mg/dL (Negative) 04/27/19 09:21 Urine Glucose (UA) Neg mg/dL (Negative) 04/27/19 09:21 Urine Ketones Neg mg/dL (Negative) 04/27/19 09:21 Urine Blood Neg (Negative) 04/27/19 09:21 Urine Nitrite Neg (Negative) 04/27/19 09:21 Urine Bilirubin Neg (Negative) 04/27/19 09:21 Urine Urobilinogen < 2.0 mg/dL (<2.0) 04/27/19 09:21 Ur Leukocyte Esterase Neg (Negative) 04/27/19 09:21 Urine WBC (Auto) 1.0 /HPF (0.0-6.0) 04/27/19 09:21 Urine RBC (Auto) 1.0 /HPF (0.0-6.0) 04/27/19 09:21 U Epithel Cells (Auto) 11.0 /HPF (0-13.0) 04/27/19 09:21 Urine Bacteria (Auto) 1+ /HPF (Negative) 04/27/19 09:21 Urine Mucus Few /HPF 04/27/19 09:21 Urine Opiates Screen Presumptive negative 04/27/19 09:21 Urine Methadone Screen Presumptive negative 04/27/19 09:21 Ur Barbiturates Screen Presumptive negative 04/27/19 09:21 Ur Phencyclidine Scrn Presumptive negative 04/27/19 09:21 Ur Amphetamines Screen Presumptive negative 04/27/19 09:21 U Benzodiazepines Scrn Presumptive negative 04/27/19 09:21 Urine Cocaine Screen Presumptive negative 04/27/19 09:21 U Marijuana (THC) Screen Presumptive positive 04/27/19 09:21 Drugs of Abuse Note Disclamer 04/27/19 09:21 - Imaging and Cardiology Chest x-ray: image reviewed (pna) Assessment and Plan Assessment and plan: 63-year-old woman who presents to the hospital with shortness of breath. Past medical history; COPD, anxiety disorder, recurrent pneumonia, hypertension, diabetes, tobacco abuse, marijuana abuse. Vitals reviewed, patient is persistently tachycardic, temperature is 100.3 Chest x-ray : Patchy right basilar airspace disease worrisome for pneumonia. Labs reviewed white count to 16.9, UDS is positive for marijuana plan -Continue antibiotics for community-acquired pneumonia Copd exacerbation; steroids, nebs, pulmonology consults, aggressive chest PT Continue rescue BiPAP Tobacco abuse/dependence Smoking cessation counseling performed for 10 minutes, nicotine patches when necessary Preventative health counseling performed for 17 minutes monitor BP Diagnosis -copd exacerbation, w hx of intubation in the past Acute on chronic hypoxic respiratory failure -R basilar pna, bacterial, likely gram pos sepsis -Tobacco abuse/dependence -marijuana abuse/dependence htn dvt ppx- lovenox VTE prophylaxis?: Chemical
[2019-04-27] MEDS ORDERED: INSULIN LISPRO 100 UNIT/ML SUB-Q ONE (12:38)
[2019-04-27] MEDS ORDERED: methylPREDNISolone Sod Succinate 125 MG/2 ML INJ ONE (12:39)
[2019-04-27] MEDS: INSULIN LISPRO 100 UNIT/ML SUB-Q SCH ×3 (12:44→22:40)
[2019-04-27] MEDS: methylPREDNISolone Sod Succinate 125 MG/2 ML INJ IV SCH (12:45)
[2019-04-27] MEDS ORDERED: methylPREDNISolone Sod Succinate 40 MG/1 ML INJ IV SCH (14:00)
[2019-04-27] MEDS: IPRATROPIUM/ALBUTEROL SULFATE 3 ML AMPUL.NEB IH SCH ×2 (14:36→19:42)
[2019-04-27] MEDS: cefTRIAXone/NS 1 GM/50 ML 1 GM/50 ML BAG IV SCH ×2 (15:40→21:02)
[2019-04-27] MEDS: FERROUS GLUCONATE 324 MG TAB PO SCH ×2 (15:41→20:58)
[2019-04-27] MEDS: BUDESONIDE 0.5 MG/2 ML NEBU IH SCH (19:42)
[2019-04-27] MEDS: ARFORMOTEROL 15 MCG/2 ML NEBU IH SCH (19:42)
[2019-04-27] MEDS: VANCOMYCIN 1,500 MG in SODIUM CHLORIDE 0.9% 500 ML 500 ML IV SCH (21:02)
[2019-04-27] MEDS: MONTELUKAST 10 MG TAB PO SCH (21:07)
[2019-04-27] MEDS ORDERED: ENOXAPARIN 40 MG/0.4 ML INJ SUB-Q SCH (22:00)
[2019-04-28] MEDS: methylPREDNISolone Sod Succinate 125 MG/2 ML INJ IV SCH ×5 (00:24→19:22)
[2019-04-28] MEDS: IPRATROPIUM/ALBUTEROL SULFATE 3 ML AMPUL.NEB IH SCH ×4 (02:40→20:26)
[2019-04-28 05:55] LABS: Hemoglobin 10.6 gm/dl (10.1-14.3); Mean Corpuscular HGB Conc 32 % (30-34); Mean Corpuscular Volume 86 fl (79-97); Platelet Count 179 K/mm3 (140-440); Red Blood Count 3.86 M/mm3 (3.65-5.03); Red Cell Distribution Width 15.6 % (13.2-15.2)
[2019-04-28 06:19] LABS: BUN/Creatinine Ratio 15; Blood Urea Nitrogen 17 mg/dL (7-17); Hemolysis Index 1
[2019-04-28 06:40] LABS: Band Neutrophils # (Manual) 1.4 K/mm3; Basophils % (Manual) 0 % (0.0-1.8); Eosinophils % (Manual) 0 % (0.0-4.3); Stomatocytes Few; Total Cells Counted 100
[2019-04-28 06:41] LABS: Anisocytosis Few; Platelet Estimate Consistent w Auto
[2019-04-28] MEDS: ARFORMOTEROL 15 MCG/2 ML NEBU IH SCH ×2 (07:50→20:26)
[2019-04-28] MEDS: BUDESONIDE 0.5 MG/2 ML NEBU IH SCH ×2 (07:50→20:26)
[2019-04-28] MEDS: INSULIN LISPRO 100 UNIT/ML SUB-Q SCH ×4 (08:35→22:10)
[2019-04-28] MEDS: FERROUS GLUCONATE 324 MG TAB PO SCH ×3 (08:40→20:41)
[2019-04-28] MEDS: cefTRIAXone/NS 1 GM/50 ML 1 GM/50 ML BAG IV SCH ×2 (09:54→22:58)
[2019-04-28] MEDS: AZITHROMYCIN 500 MG in SODIUM CHLORIDE 0.9% 250ML 250 ML IV SCH (09:54)
[2019-04-28] MEDS: glipiZIDE 10 MG TAB PO SCH ×2 (11:29→16:52)
[2019-04-28] MEDS: VANCOMYCIN 1,500 MG in SODIUM CHLORIDE 0.9% 500 ML 500 ML IV SCH ×2 (11:29→23:26)
[2019-04-28] MEDS: NICOTINE 7 MG/24 HR PATCH TD SCH (13:21)
--- NOTE | 2019-04-28 13:30 | Progress Note ---
Assessment and Plan Assessment and plan: 63-year-old woman who presents to the hospital with shortness of breath. Past medical history; COPD, anxiety disorder, recurrent pneumonia, hypertension, diabetes, tobacco abuse, marijuana abuse. Vitals reviewed, patient is persistently tachycardic, temperature is 100.3 Chest x-ray : Patchy right basilar airspace disease worrisome for pneumonia. Labs reviewed white count to 16.9, UDS is positive for marijuana plan -Continue antibiotics for community-acquired pneumonia Copd exacerbation; steroids, nebs, pulmonology consults, aggressive chest PT Continue nasal cannula during daytime and BiPAP and resting Tobacco abuse/dependence Smoking cessation counseling performed for 10 minutes, nicotine patches when necessary Preventative health counseling performed for 17 minutes monitor BP Diagnosis -copd exacerbation, w hx of intubation in the past Acute on chronic hypoxic respiratory failure -R basilar pna, bacterial, likely gram pos sepsis -Tobacco abuse/dependence -marijuana abuse/dependence htn dvt ppx- lovenox History Interval history: Review of systems Constitutional: No fevers, no malaise, no joint pains CVS: No chest pain, no orthopnea, no pedal edema GI: No abdominal pain, no diarrhea, no vomiting, no constipation Respiratory: Continues to have shortness of breath coughing and wheezing Hospitalist Physical - Physical exam Narrative exam: General.: No distress at this time HEENT: Moist mucous membranes, extraocular muscles intact, no lymphadenopathy Neck: supple Cardiac: S1-S2 heard Lungs: Diminished air entry, wheezing Abdomen: soft , nontender, nondistended, bowel sounds positive Extremities: no edema clubbing or cyanosis Skin: no rash or lesions Neurologic: no gross focal deficits Psych: calm, and cooperative - Constitutional Vitals: Temp Pulse Resp BP Pulse Ox 98.4 F 101 H 20 137/72 98 04/28/19 12:00 04/28/19 08:14 04/28/19 08:14 04/28/19 06:00 04/28/19 07:46 General appearance: Present: mild distress, well-nourished Results - Labs CBC & Chem 7: 04/28/19 05:10 04/28/19 05:10 Labs: Laboratory Last Values WBC 16.9 K/mm3 (4.5-11.0) H 04/28/19 05:10 RBC 3.86 M/mm3 (3.65-5.03) 04/28/19 05:10 Hgb 10.6 gm/dl (10.1-14.3) 04/28/19 05:10 Hct 33.0 % (30.3-42.9) 04/28/19 05:10 MCV 86 fl (79-97) 04/28/19 05:10 MCH 27 pg (28-32) L 04/28/19 05:10 MCHC 32 % (30-34) 04/28/19 05:10 RDW 15.6 % (13.2-15.2) H 04/28/19 05:10 Plt Count 179 K/mm3 (140-440) 04/28/19 05:10 Lymph % (Auto) 8.5 % (13.4-35.0) L 04/27/19 07:38 [place] % (Auto) 7.0 % (0.0-7.3) 04/27/19 07:38 Eos % (Auto) 0.2 % (0.0-4.3) 04/27/19 07:38 Baso % (Auto) 0.5 % (0.0-1.8) 04/27/19 07:38 Lymph # 1.4 K/mm3 (1.2-5.4) 04/27/19 07:38 [place] # 1.2 K/mm3 (0.0-0.8) H 04/27/19 07:38 Eos # 0.0 K/mm3 (0.0-0.4) 04/27/19 07:38 Baso # 0.1 K/mm3 (0.0-0.1) 04/27/19 07:38 Add Manual Diff Complete 04/28/19 05:10 Total Counted 100 04/28/19 05:10 Seg Neutrophils % Fittings Finisher 04/28/19 05:10 Seg Neuts % (Manual) 88.0 % (40.0-70.0) H 04/28/19 05:10 Band Neutrophils % 8.0 % 04/28/19 05:10 Lymphocytes % (Manual) 2.0 % (13.4-35.0) L 04/28/19 05:10 Reactive Lymphs % (Man) 0 % 04/28/19 05:10 Monocytes % (Manual) 2.0 % (0.0-7.3) 04/28/19 05:10 Eosinophils % (Manual) 0 % (0.0-4.3) 04/28/19 05:10 Basophils % (Manual) 0 % (0.0-1.8) 04/28/19 05:10 Metamyelocytes % 0 % 04/28/19 05:10 Myelocytes % 0 % 04/28/19 05:10 Promyelocytes % 0 % 04/28/19 05:10 Blast Cells % 0 % 04/28/19 05:10 Nucleated RBC % Not Reportable 04/28/19 05:10 Seg Neutrophils # 14.1 K/mm3 (1.8-7.7) H 04/27/19 07:38 Seg Neutrophils # Man 14.9 K/mm3 (1.8-7.7) H 04/28/19 05:10 Band Neutrophils # 1.4 K/mm3 04/28/19 05:10 Lymphocytes # (Manual) 0.3 K/mm3 (1.2-5.4) L 04/28/19 05:10 Abs React Lymphs (Man) 0.0 K/mm3 04/28/19 05:10 Monocytes # (Manual) 0.3 K/mm3 (0.0-0.8) 04/28/19 05:10 Eosinophils # (Manual) 0.0 K/mm3 (0.0-0.4) 04/28/19 05:10 Basophils # (Manual) 0.0 K/mm3 (0.0-0.1) 04/28/19 05:10 Metamyelocytes # 0.0 K/mm3 04/28/19 05:10 Myelocytes # 0.0 K/mm3 04/28/19 05:10 Promyelocytes # 0.0 K/mm3 04/28/19 05:10 Blast Cells # 0.0 K/mm3 04/28/19 05:10 WBC Morphology Not Reportable 04/28/19 05:10 Hypersegmented Neuts Not Reportable 04/28/19 05:10 Hyposegmented Neuts Not Reportable 04/28/19 05:10 Hypogranular Neuts Not Reportable 04/28/19 05:10 Smudge Cells Not Reportable 04/28/19 05:10 Toxic Granulation Not Reportable 04/28/19 05:10 Toxic Vacuolation Not Reportable 04/28/19 05:10 Dohle Bodies Not Reportable 04/28/19 05:10 Pelger-Huet Anomaly Not Reportable 04/28/19 05:10 Roro Rods Not Reportable 04/28/19 05:10 Platelet Estimate Consistent w auto 04/28/19 05:10 Clumped Platelets Not Reportable 04/28/19 05:10 Plt Clumps, EDTA Not Reportable 04/28/19 05:10 Large Platelets Not Reportable 04/28/19 05:10 Giant Platelets Not Reportable 04/28/19 05:10 Platelet Satelliting Not Reportable 04/28/19 05:10 Plt Morphology Comment Not Reportable 04/28/19 05:10 RBC Morphology Not Reportable 04/28/19 05:10 Dimorphic RBCs Not Reportable 04/28/19 05:10 Polychromasia Not Reportable 04/28/19 05:10 Hypochromasia Not Reportable 04/28/19 05:10 Poikilocytosis Not Reportable 04/28/19 05:10 Anisocytosis Few 04/28/19 05:10 Microcytosis Not Reportable 04/28/19 05:10 Macrocytosis Not Reportable 04/28/19 05:10 Spherocytes Not Reportable 04/28/19 05:10 Pappenheimer Bodies Not Reportable 04/28/19 05:10 Sickle Cells Not Reportable 04/28/19 05:10 Target Cells Not Reportable 04/28/19 05:10 Tear Drop Cells Not Reportable 04/28/19 05:10 Ovalocytes Not Reportable 04/28/19 05:10 Stomatocytes Few 04/28/19 05:10 Helmet Cells Not Reportable 04/28/19 05:10 [place] Bodies Not Reportable 04/28/19 05:10 [place] Rings Not Reportable 04/28/19 05:10 [place] Cells Not Reportable 04/28/19 05:10 Bite Cells Not Reportable 04/28/19 05:10 Crenated Cell Not Reportable 04/28/19 05:10 Elliptocytes Not Reportable 04/28/19 05:10 Acanthocytes (Spur) Not Reportable 04/28/19 05:10 Rouleaux Not Reportable 04/28/19 05:10 Hemoglobin C Crystals Not Reportable 04/28/19 05:10 Schistocytes Not Reportable 04/28/19 05:10 Malaria parasites Not Reportable 04/28/19 05:10 Jim Bodies Not Reportable 04/28/19 05:10 Hem Pathologist Commnt No 04/28/19 05:10 PT 13.2 Sec. (12.2-14.9) 04/27/19 07:38 INR 1.01 (0.87-1.13) 04/27/19 07:38 APTT 25.4 Sec. (24.2-36.6) 04/27/19 07:38 POC ABG pH 7.354 (7.35-7.45) 04/27/19 09:36 POC ABG pCO2 60.9 (35-45) H 04/27/19 09:36 POC ABG pO2 58 (80-105) L 04/27/19 09:36 POC ABG HCO3 33.9 (22-26 mml/L) 04/27/19 09:36 POC ABG Total CO2 36 (23-27mmol/L) 04/27/19 09:36 POC ABG O2 Sat 88 04/27/19 09:36 POC ABG Base Excess 8 ((-2) - (+3)mmol/L) 04/27/19 09:36 FiO2 36 % 04/27/19 09:36 Sodium 142 mmol/L (137-145) 04/28/19 05:10 Potassium 4.4 mmol/L (3.6-5.0) 04/28/19 05:10 Chloride 99.4 mmol/L (98-107) 04/28/19 05:10 Carbon Dioxide 31 mmol/L (22-30) H 04/28/19 05:10 Anion Gap 16 mmol/L 04/28/19 05:10 BUN 17 mg/dL (7-17) 04/28/19 05:10 Creatinine 1.1 mg/dL (0.7-1.2) 04/28/19 05:10 Estimated GFR > 60 ml/min 04/28/19 05:10 BUN/Creatinine Ratio 15 % 04/28/19 05:10 Glucose 267 mg/dL (65-100) H 04/28/19 05:10 POC Glucose 238 (70-105) H 04/28/19 12:06 Hemoglobin A1c 5.8 % (4-6) 04/27/19 07:38 Lactic Acid 1.30 mmol/L (0.7-2.0) 04/27/19 07:49 Calcium 9.0 mg/dL (8.4-10.2) 04/28/19 05:10 Magnesium 1.60 mg/dL (1.7-2.3) L 04/27/19 07:38 Total Bilirubin 0.50 mg/dL (0.1-1.2) 04/27/19 07:38 Direct Bilirubin < 0.2 mg/dL (0-0.2) 04/27/19 07:38 Indirect Bilirubin 0.3 mg/dL 04/27/19 07:38 AST 18 units/L (5-40) 04/27/19 07:38 ALT 33 units/L (7-56) 04/27/19 07:38 Alkaline Phosphatase 54 units/L (35-129) 04/27/19 07:38 Total Creatine Kinase 117 units/L (30-135) 04/27/19 07:38 CK-MB (CK-2) 1.6 ng/mL (0.0-4.0) 04/27/19 07:38 CK-MB (CK-2) Rel Index 1.3 (0-4) 04/27/19 07:38 Troponin T < 0.010 ng/mL (0.00-0.029) 04/27/19 07:38 Total Protein 6.1 g/dL (6.3-8.2) L 04/27/19 07:38 Albumin 4.0 g/dL (3.9-5) 04/27/19 07:38 Albumin/Globulin Ratio 1.9 % 04/27/19 07:38 Urine Color Yellow (Yellow) 04/27/19 09:21 Urine Turbidity Hazy (Clear) 04/27/19 09:21 Urine pH 5.0 (5.0-7.0) 04/27/19 09:21 Ur Specific [place] 1.023 (1.003-1.030) 04/27/19 09:21 Urine Protein 30 mg/dl mg/dL (Negative) 04/27/19 09:21 Urine Glucose (UA) Neg mg/dL (Negative) 04/27/19 09:21 Urine Ketones Neg mg/dL (Negative) 04/27/19 09:21 Urine Blood Neg (Negative) 04/27/19 09:21 Urine Nitrite Neg (Negative) 04/27/19 09:21 Urine Bilirubin Neg (Negative) 04/27/19 09:21 Urine Urobilinogen < 2.0 mg/dL (<2.0) 04/27/19 09:21 Ur Leukocyte Esterase Neg (Negative) 04/27/19 09:21 Urine WBC (Auto) 1.0 /HPF (0.0-6.0) 04/27/19 09:21 Urine RBC (Auto) 1.0 /HPF (0.0-6.0) 04/27/19 09:21 U Epithel Cells (Auto) 11.0 /HPF (0-13.0) 04/27/19 09:21 Urine Bacteria (Auto) 1+ /HPF (Negative) 04/27/19 09:21 Urine Mucus Few /HPF 04/27/19 09:21 Urine Opiates Screen Presumptive negative 04/27/19 09:21 Urine Methadone Screen Presumptive negative 04/27/19 09:21 Ur Barbiturates Screen Presumptive negative 04/27/19 09:21 Ur Phencyclidine Scrn Presumptive negative 04/27/19 09:21 Ur Amphetamines Screen Presumptive negative 04/27/19 09:21 U Benzodiazepines Scrn Presumptive negative 04/27/19 09:21 Urine Cocaine Screen Presumptive negative 04/27/19 09:21 U Marijuana (THC) Screen Presumptive positive 04/27/19 09:21 Drugs of Abuse Note Disclamer 04/27/19 09:21 Active Medications - Current Medications Current Medications: Generic Name Dose Route Start Last Admin Trade Name Freq PRN Reason Stop Dose Admin Acetaminophen 650 mg 04/27/19 11:18 Tylenol PO Q4H PRN Pain MILD(1-3)/Fever >100.5/NAVARRO Albuterol 2.5 mg 04/27/19 11:22 Proventil IH Q4HRT PRN Shortness Of Breath Albuterol/Ipratropium 1 ampul 04/27/19 14:00 04/28/19 07:50 Duoneb *Not For Prn Use* IH 1 ampul Q6HRT AUDELIA Administration Apixaban 5 mg 04/28/19 22:00 Eliquis PO BID AUDELIA Protocol Arformoterol Tartrate 15 mcg 04/27/19 20:00 04/28/19 07:50 Brovana Nebu IH 15 mcg Q12HRT AUDELIA Administration Budesonide 0.5 mg 04/27/19 20:00 04/28/19 07:50 Pulmicort IH 0.5 mg Q12HRT AUDELIA Administration Dextrose 50 ml 04/27/19 11:30 D50w (25gm) Syringe IV Q30MIN PRN Hypoglycemia Protocol Enoxaparin Sodium 40 mg 04/27/19 22:00 04/27/19 21:03 Enoxaparin SUB-Q 40 mg QDAY@2200 AUDELIA Administration Ferrous Gluconate 325 mg 04/27/19 14:00 04/28/19 08:40 Fergon PO 325 mg TID AUDELIA Administration Glipizide 10 mg 04/28/19 11:00 04/28/19 11:29 Glucotrol PO 10 mg BIDDIAB AUDELIA Administration Vancomycin HCl 1,500 mg/ 530 mls @ 333.333 mls/hr 04/27/19 22:00 04/28/19 11:29 Sodium Chloride IV 333.333 mls/hr Q12H AUDELIA Administration Azithromycin 500 mg/ Sodium 250 mls @ 250 mls/hr 04/28/19 10:00 04/28/19 09:54 Chloride IV 250 mls/hr Q24HR AUDELIA Administration Protocol Ceftriaxone Sodium 1 gm in 50 mls @ 100 mls/hr 04/27/19 12:00 04/28/19 09:54 Rocephin/Ns 1 Gm/50 Ml IV 100 mls/hr Q12HR AUDELIA Administration Protocol Insulin Human Lispro 0 unit 04/27/19 12:00 04/28/19 13:17 Humalog SUB-Q 3 unit ACHS AUDELIA Administration Protocol Methylprednisolone Sodium Succinate 60 mg 04/27/19 12:00 04/28/19 13:18 Solu-Medrol IV 60 mg Q6H AUDELIA Administration Montelukast Sodium 10 mg 04/27/19 22:00 04/27/19 21:07 Singulair PO 10 mg QHS AUDELIA Administration Nicotine 7 mg 04/28/19 10:00 04/28/19 13:21 Habitrol TD 7 mg QDAY AUDELIA Administration Ondansetron HCl 4 mg 04/27/19 11:18 Zofran IV Q8H PRN Nausea And Vomiting Pantoprazole Sodium 40 mg 04/29/19 10:00 Protonix PO QDAY AUDELIA Sodium Chloride 10 ml 04/27/19 22:00 04/28/19 09:59 Sodium Chloride Flush Syringe 10 Ml IV 10 ml BID AUDELIA Administration Sodium Chloride 10 ml 04/27/19 11:18 Sodium Chloride Flush Syringe 10 Ml IV PRN PRN LINE FLUSH Nutrition/Malnutrition Assess - Dietary Evaluation Nutrition/Malnutrition Findings: Nutrition Notes Start: 04/28/19 11:36 Freq: Status: Active Protocol: Document 04/28/19 11:36 LM (Rec: 04/28/19 11:46 LM [id number]) Nutrition Notes Need for Assessment generated from: MD Order,manager activities,MST, Education Initial or Follow up Brief Note Current Diagnosis COPD,Hypertension Other Pertinent Diagnosis tobacco use Current Diet Cardiac diet Labs/Tests BG 267 Hgb A1C 5.8 Pertinent Medications Glucotrol Humalog Solumedrol Weight Status Obese Subjective/Other Information MD consult for DM diet education. HgbA1C indicates prediabetes. Pt stated she has been informed of DM by other MDs. Pt stated she has a good appetite and wants more food. Pt reports wt gain and UBW of 186 lb (84.5kg). Pt agreed to diet education. #1 Nutrition Diagnosis Food and nutrition-related knowledge deficit Etiology No prior knowledge of DM diet As Evidenced by Signs and Symptoms Pt needing DM diet education, BG 267, HgbA1C 5.8 Nutrition Intervention Change Diet Order: Consistent CHO/cardiac Teaching Recipient Patient Learning Readiness Good Teaching Methods Discussion,Handout Response to Teaching Verbalize understanding Education Handouts Provided Carbohydrate Counting for People with Diabetes Barriers to Learning Cognitive/Verbal RD phone number provided Yes Patient aware of follow up options Yes Revisit per MD consult or patient Sign Off request:
[2019-04-28] MEDS: MONTELUKAST 10 MG TAB PO SCH (22:10)
[2019-04-28] MEDS: APIXABAN 5 MG TAB PO SCH (22:10)
[2019-04-29] MEDS: methylPREDNISolone Sod Succinate 125 MG/2 ML INJ IV SCH ×4 (01:04→17:26)
[2019-04-29] MEDS: IPRATROPIUM/ALBUTEROL SULFATE 3 ML AMPUL.NEB IH SCH ×4 (04:04→21:35)
--- NOTE | 2019-04-29 08:32 | Progress Note ---
Subjective Interval history: consult note dictated Objective Vital Signs - 12hr 04/28/19 04/28/19 04/29/19 21:09 22:25 04:21 Temperature 98.0 F 98.0 F Pulse Rate Pulse Rate [ 102 H Anterior Bilateral Throughout] Pulse Rate [ 105 H Left] Respiratory 20 16 Rate Respiratory 22 Rate [Anterior Bilateral Throughout] Blood Pressure 129/73 129/73 O2 Sat by Pulse 97 Oximetry 04/29/19 05:40 Temperature 97.8 F Pulse Rate 104 H Pulse Rate [ Anterior Bilateral Throughout] Pulse Rate [ Left] Respiratory 20 Rate Respiratory Rate [Anterior Bilateral Throughout] Blood Pressure 138/53 O2 Sat by Pulse 98 Oximetry CBC and BMP: 04/28/19 05:10 04/28/19 05:10 ABG, PT/INR, D-dimer: ABG POC ABG pH 7.354 (7.35-7.45) 04/27/19 09:36 POC ABG pCO2 60.9 (35-45) H 04/27/19 09:36 POC ABG pO2 58 (80-105) L 04/27/19 09:36 POC ABG HCO3 33.9 (22-26 mml/L) 04/27/19 09:36 POC ABG Total CO2 36 (23-27mmol/L) 04/27/19 09:36 POC ABG O2 Sat 88 04/27/19 09:36 PT/INR, D-dimer PT 13.2 Sec. (12.2-14.9) 04/27/19 07:38 INR 1.01 (0.87-1.13) 04/27/19 07:38 Abnormal lab findings: Abnormal Labs 04/27/19 04/27/19 04/27/19 07:38 07:38 07:38 WBC 16.9 H MCH 27 L RDW 15.6 H Lymph % (Auto) 8.5 L [place] # 1.2 H Seg Neutrophils % 83.8 H Seg Neuts % (Manual) Lymphocytes % (Manual) Seg Neutrophils # 14.1 H Seg Neutrophils # Man Lymphocytes # (Manual) POC ABG pCO2 POC ABG pO2 Chloride 93.5 L Carbon Dioxide 31 H Glucose 162 H POC Glucose Magnesium 1.60 L Total Protein 6.1 L 04/27/19 04/27/19 04/27/19 09:36 12:42 17:58 WBC MCH RDW Lymph % (Auto) [place] # Seg Neutrophils % Seg Neuts % (Manual) Lymphocytes % (Manual) Seg Neutrophils # Seg Neutrophils # Man Lymphocytes # (Manual) POC ABG pCO2 60.9 H POC ABG pO2 58 L Chloride Carbon Dioxide Glucose POC Glucose 225 H 324 H Magnesium Total Protein 04/27/19 04/28/19 04/28/19 21:45 05:10 05:10 WBC 16.9 H MCH 27 L RDW 15.6 H Lymph % (Auto) [place] # Seg Neutrophils % Seg Neuts % (Manual) 88.0 H Lymphocytes % (Manual) 2.0 L Seg Neutrophils # Seg Neutrophils # Man 14.9 H Lymphocytes # (Manual) 0.3 L POC ABG pCO2 POC ABG pO2 Chloride Carbon Dioxide 31 H Glucose 267 H POC Glucose 251 H Magnesium Total Protein 04/28/19 04/28/19 04/28/19 07:38 12:06 16:32 WBC MCH RDW Lymph % (Auto) [place] # Seg Neutrophils % Seg Neuts % (Manual) Lymphocytes % (Manual) Seg Neutrophils # Seg Neutrophils # Man Lymphocytes # (Manual) POC ABG pCO2 POC ABG pO2 Chloride Carbon Dioxide Glucose POC Glucose 216 H 238 H 197 H Magnesium Total Protein 04/28/19 04/29/19 21:30 07:52 WBC MCH RDW Lymph % (Auto) [place] # Seg Neutrophils % Seg Neuts % (Manual) Lymphocytes % (Manual) Seg Neutrophils # Seg Neutrophils # Man Lymphocytes # (Manual) POC ABG pCO2 POC ABG pO2 Chloride Carbon Dioxide Glucose POC Glucose 288 H 278 H Magnesium Total Protein
[2019-04-29] MEDS: INSULIN LISPRO 100 UNIT/ML SUB-Q SCH ×4 (08:33→22:39)
[2019-04-29] MEDS: glipiZIDE 10 MG TAB PO SCH ×2 (08:35→17:26)
[2019-04-29] MEDS: APIXABAN 5 MG TAB PO SCH ×2 (10:45→21:09)
[2019-04-29] MEDS: FERROUS GLUCONATE 324 MG TAB PO SCH ×3 (10:45→21:15)
[2019-04-29] MEDS: NICOTINE 7 MG/24 HR PATCH TD SCH (10:45)
[2019-04-29] MEDS: PANTOPRAZOLE 40 MG TAB PO SCH (10:46)
[2019-04-29] MEDS: cefTRIAXone/NS 2 GM/100 ML 2 GM/100 ML BAG IV SCH (10:46)
[2019-04-29] MEDS: AZITHROMYCIN 500 MG in SODIUM CHLORIDE 0.9% 250ML 250 ML IV SCH (10:57)
[2019-04-29] MEDS: ARFORMOTEROL 15 MCG/2 ML NEBU IH SCH ×2 (11:33→21:35)
[2019-04-29] MEDS: BUDESONIDE 0.5 MG/2 ML NEBU IH SCH ×2 (11:33→21:35)
--- NOTE | 2019-04-29 12:22 | Progress Note ---
Assessment and Plan Assessment and plan: 63-year-old woman who presents to the hospital with shortness of breath. Past medical history; COPD, anxiety disorder, recurrent pneumonia, hypertension, diabetes, tobacco abuse, marijuana abuse. Vitals reviewed, patient is persistently tachycardic, temperature is 100.3 Chest x-ray : Patchy right basilar airspace disease worrisome for pneumonia. Labs reviewed white count to 16.9, UDS is positive for marijuana plan -Continue antibiotics for community-acquired pneumonia Copd exacerbation; steroids, nebs, pulmonology consults, aggressive chest PT Continue nasal cannula during daytime and BiPAP and resting Tobacco abuse/dependence Smoking cessation counseling performed for 10 minutes, nicotine patches when necessary Preventative health counseling performed for 17 minutes monitor BP Diagnosis -copd exacerbation, w hx of intubation in the past Acute on chronic hypoxic respiratory failure -R basilar pna, bacterial, likely gram pos sepsis -Tobacco abuse/dependence -marijuana abuse/dependence htn dvt ppx- lovenox History Interval history: Review of systems Constitutional: No fevers, no malaise, no joint pains CVS: No chest pain, no orthopnea, no pedal edema GI: No abdominal pain, no diarrhea, no vomiting, no constipation Respiratory: Continues to have shortness of breath coughing and wheezing Hospitalist Physical - Physical exam Narrative exam: General.: No distress at this time HEENT: Moist mucous membranes, extraocular muscles intact, no lymphadenopathy Neck: supple Cardiac: S1-S2 heard Lungs: Diminished air entry, wheezing Abdomen: soft , nontender, nondistended, bowel sounds positive Extremities: no edema clubbing or cyanosis Skin: no rash or lesions Neurologic: no gross focal deficits Psych: calm, and cooperative - Constitutional Vitals: Temp Pulse Resp BP Pulse Ox 97.8 F 96 H 20 138/53 98 04/29/19 05:40 04/29/19 11:34 04/29/19 11:34 04/29/19 05:40 04/29/19 05:40 General appearance: Present: mild distress, well-nourished Results - Labs CBC & Chem 7: 04/28/19 05:10 04/28/19 05:10 Labs: Laboratory Last Values WBC 16.9 K/mm3 (4.5-11.0) H 04/28/19 05:10 RBC 3.86 M/mm3 (3.65-5.03) 04/28/19 05:10 Hgb 10.6 gm/dl (10.1-14.3) 04/28/19 05:10 Hct 33.0 % (30.3-42.9) 04/28/19 05:10 MCV 86 fl (79-97) 04/28/19 05:10 MCH 27 pg (28-32) L 04/28/19 05:10 MCHC 32 % (30-34) 04/28/19 05:10 RDW 15.6 % (13.2-15.2) H 04/28/19 05:10 Plt Count 179 K/mm3 (140-440) 04/28/19 05:10 Lymph % (Auto) 8.5 % (13.4-35.0) L 04/27/19 07:38 [place] % (Auto) 7.0 % (0.0-7.3) 04/27/19 07:38 Eos % (Auto) 0.2 % (0.0-4.3) 04/27/19 07:38 Baso % (Auto) 0.5 % (0.0-1.8) 04/27/19 07:38 Lymph # 1.4 K/mm3 (1.2-5.4) 04/27/19 07:38 [place] # 1.2 K/mm3 (0.0-0.8) H 04/27/19 07:38 Eos # 0.0 K/mm3 (0.0-0.4) 04/27/19 07:38 Baso # 0.1 K/mm3 (0.0-0.1) 04/27/19 07:38 Add Manual Diff Complete 04/28/19 05:10 Total Counted 100 04/28/19 05:10 Seg Neutrophils % [employer] 04/28/19 05:10 Seg Neuts % (Manual) 88.0 % (40.0-70.0) H 04/28/19 05:10 Band Neutrophils % 8.0 % 04/28/19 05:10 Lymphocytes % (Manual) 2.0 % (13.4-35.0) L 04/28/19 05:10 Reactive Lymphs % (Man) 0 % 04/28/19 05:10 Monocytes % (Manual) 2.0 % (0.0-7.3) 04/28/19 05:10 Eosinophils % (Manual) 0 % (0.0-4.3) 04/28/19 05:10 Basophils % (Manual) 0 % (0.0-1.8) 04/28/19 05:10 Metamyelocytes % 0 % 04/28/19 05:10 Myelocytes % 0 % 04/28/19 05:10 Promyelocytes % 0 % 04/28/19 05:10 Blast Cells % 0 % 04/28/19 05:10 Nucleated RBC % Not Reportable 04/28/19 05:10 Seg Neutrophils # 14.1 K/mm3 (1.8-7.7) H 04/27/19 07:38 Seg Neutrophils # Man 14.9 K/mm3 (1.8-7.7) H 04/28/19 05:10 Band Neutrophils # 1.4 K/mm3 04/28/19 05:10 Lymphocytes # (Manual) 0.3 K/mm3 (1.2-5.4) L 04/28/19 05:10 Abs React Lymphs (Man) 0.0 K/mm3 04/28/19 05:10 Monocytes # (Manual) 0.3 K/mm3 (0.0-0.8) 04/28/19 05:10 Eosinophils # (Manual) 0.0 K/mm3 (0.0-0.4) 04/28/19 05:10 Basophils # (Manual) 0.0 K/mm3 (0.0-0.1) 04/28/19 05:10 Metamyelocytes # 0.0 K/mm3 04/28/19 05:10 Myelocytes # 0.0 K/mm3 04/28/19 05:10 Promyelocytes # 0.0 K/mm3 04/28/19 05:10 Blast Cells # 0.0 K/mm3 04/28/19 05:10 WBC Morphology Not Reportable 04/28/19 05:10 Hypersegmented Neuts Not Reportable 04/28/19 05:10 Hyposegmented Neuts Not Reportable 04/28/19 05:10 Hypogranular Neuts Not Reportable 04/28/19 05:10 Smudge Cells Not Reportable 04/28/19 05:10 Toxic Granulation Not Reportable 04/28/19 05:10 Toxic Vacuolation Not Reportable 04/28/19 05:10 Dohle Bodies Not Reportable 04/28/19 05:10 Pelger-Huet Anomaly Not Reportable 04/28/19 05:10 Roro Rods Not Reportable 04/28/19 05:10 Platelet Estimate Consistent w auto 04/28/19 05:10 Clumped Platelets Not Reportable 04/28/19 05:10 Plt Clumps, EDTA Not Reportable 04/28/19 05:10 Large Platelets Not Reportable 04/28/19 05:10 Giant Platelets Not Reportable 04/28/19 05:10 Platelet Satelliting Not Reportable 04/28/19 05:10 Plt Morphology Comment Not Reportable 04/28/19 05:10 RBC Morphology Not Reportable 04/28/19 05:10 Dimorphic RBCs Not Reportable 04/28/19 05:10 Polychromasia Not Reportable 04/28/19 05:10 Hypochromasia Not Reportable 04/28/19 05:10 Poikilocytosis Not Reportable 04/28/19 05:10 Anisocytosis Few 04/28/19 05:10 Microcytosis Not Reportable 04/28/19 05:10 Macrocytosis Not Reportable 04/28/19 05:10 Spherocytes Not Reportable 04/28/19 05:10 Pappenheimer Bodies Not Reportable 04/28/19 05:10 Sickle Cells Not Reportable 04/28/19 05:10 Target Cells Not Reportable 04/28/19 05:10 Tear Drop Cells Not Reportable 04/28/19 05:10 Ovalocytes Not Reportable 04/28/19 05:10 Stomatocytes Few 04/28/19 05:10 Helmet Cells Not Reportable 04/28/19 05:10 [place] Bodies Not Reportable 04/28/19 05:10 St[address] Ground Rings Not Reportable 04/28/19 05:10 Samia Cells Not Reportable 04/28/19 05:10 Bite Cells Not Reportable 04/28/19 05:10 Crenated Cell Not Reportable 04/28/19 05:10 Elliptocytes Not Reportable 04/28/19 05:10 Acanthocytes (Spur) Not Reportable 04/28/19 05:10 Rouleaux Not Reportable 04/28/19 05:10 Hemoglobin C Crystals Not Reportable 04/28/19 05:10 Schistocytes Not Reportable 04/28/19 05:10 Malaria parasites Not Reportable 04/28/19 05:10 Jim Bodies Not Reportable 04/28/19 05:10 Hem Pathologist Commnt No 04/28/19 05:10 PT 13.2 Sec. (12.2-14.9) 04/27/19 07:38 INR 1.01 (0.87-1.13) 04/27/19 07:38 APTT 25.4 Sec. (24.2-36.6) 04/27/19 07:38 POC ABG pH 7.354 (7.35-7.45) 04/27/19 09:36 POC ABG pCO2 60.9 (35-45) H 04/27/19 09:36 POC ABG pO2 58 (80-105) L 04/27/19 09:36 POC ABG HCO3 33.9 (22-26 mml/L) 04/27/19 09:36 POC ABG Total CO2 36 (23-27mmol/L) 04/27/19 09:36 POC ABG O2 Sat 88 04/27/19 09:36 POC ABG Base Excess 8 ((-2) - (+3)mmol/L) 04/27/19 09:36 FiO2 36 % 04/27/19 09:36 Sodium 142 mmol/L (137-145) 04/28/19 05:10 Potassium 4.4 mmol/L (3.6-5.0) 04/28/19 05:10 Chloride 99.4 mmol/L (98-107) 04/28/19 05:10 Carbon Dioxide 31 mmol/L (22-30) H 04/28/19 05:10 Anion Gap 16 mmol/L 04/28/19 05:10 BUN 17 mg/dL (7-17) 04/28/19 05:10 Creatinine 1.1 mg/dL (0.7-1.2) 04/28/19 05:10 Estimated GFR > 60 ml/min 04/28/19 05:10 BUN/Creatinine Ratio 15 % 04/28/19 05:10 Glucose 267 mg/dL (65-100) H 04/28/19 05:10 POC Glucose 278 (70-105) H 04/29/19 07:52 Hemoglobin A1c 5.8 % (4-6) 04/27/19 07:38 Lactic Acid 1.30 mmol/L (0.7-2.0) 04/27/19 07:49 Calcium 9.0 mg/dL (8.4-10.2) 04/28/19 05:10 Magnesium 1.60 mg/dL (1.7-2.3) L 04/27/19 07:38 Total Bilirubin 0.50 mg/dL (0.1-1.2) 04/27/19 07:38 Direct Bilirubin < 0.2 mg/dL (0-0.2) 04/27/19 07:38 Indirect Bilirubin 0.3 mg/dL 04/27/19 07:38 AST 18 units/L (5-40) 04/27/19 07:38 ALT 33 units/L (7-56) 04/27/19 07:38 Alkaline Phosphatase 54 units/L (35-129) 04/27/19 07:38 Total Creatine Kinase 117 units/L (30-135) 04/27/19 07:38 CK-MB (CK-2) 1.6 ng/mL (0.0-4.0) 04/27/19 07:38 CK-MB (CK-2) Rel Index 1.3 (0-4) 04/27/19 07:38 Troponin T < 0.010 ng/mL (0.00-0.029) 04/27/19 07:38 Total Protein 6.1 g/dL (6.3-8.2) L 04/27/19 07:38 Albumin 4.0 g/dL (3.9-5) 04/27/19 07:38 Albumin/Globulin Ratio 1.9 % 04/27/19 07:38 Urine Color Yellow (Yellow) 04/27/19 09:21 Urine Turbidity Hazy (Clear) 04/27/19 09:21 Urine pH 5.0 (5.0-7.0) 04/27/19 09:21 Ur Specific [place] 1.023 (1.003-1.030) 04/27/19 09:21 Urine Protein 30 mg/dl mg/dL (Negative) 04/27/19 09:21 Urine Glucose (UA) Neg mg/dL (Negative) 04/27/19 09:21 Urine Ketones Neg mg/dL (Negative) 04/27/19 09:21 Urine Blood Neg (Negative) 04/27/19 09:21 Urine Nitrite Neg (Negative) 04/27/19 09:21 Urine Bilirubin Neg (Negative) 04/27/19 09:21 Urine Urobilinogen < 2.0 mg/dL (<2.0) 04/27/19 09:21 Ur Leukocyte Esterase Neg (Negative) 04/27/19 09:21 Urine WBC (Auto) 1.0 /HPF (0.0-6.0) 04/27/19 09:21 Urine RBC (Auto) 1.0 /HPF (0.0-6.0) 04/27/19 09:21 U Epithel Cells (Auto) 11.0 /HPF (0-13.0) 04/27/19 09:21 Urine Bacteria (Auto) 1+ /HPF (Negative) 04/27/19 09:21 Urine Mucus Few /HPF 04/27/19 09:21 Urine Opiates Screen Presumptive negative 04/27/19 09:21 Urine Methadone Screen Presumptive negative 04/27/19 09:21 Ur Barbiturates Screen Presumptive negative 04/27/19 09:21 Ur Phencyclidine Scrn Presumptive negative 04/27/19 09:21 Ur Amphetamines Screen Presumptive negative 04/27/19 09:21 U Benzodiazepines Scrn Presumptive negative 04/27/19 09:21 Urine Cocaine Screen Presumptive negative 04/27/19 09:21 U Marijuana (THC) Screen Presumptive positive 04/27/19 09:21 Drugs of Abuse Note Disclamer 04/27/19 09:21 Active Medications - Current Medications Current Medications: Generic Name Dose Route Start Last Admin Trade Name Freq PRN Reason Stop Dose Admin Acetaminophen 650 mg 04/27/19 11:18 Tylenol PO Q4H PRN Pain MILD(1-3)/Fever >100.5/NAVARRO Albuterol 2.5 mg 04/27/19 11:22 Proventil IH Q4HRT PRN Shortness Of Breath Albuterol/Ipratropium 1 ampul 04/27/19 14:00 04/29/19 11:33 Duoneb *Not For Prn Use* IH 1 ampul Q6HRT AUDELIA Administration Apixaban 5 mg 04/28/19 22:00 04/29/19 10:45 Eliquis PO 5 mg BID AUDELIA Administration Protocol Arformoterol Tartrate 15 mcg 04/27/19 20:00 11/30/19 11:33 Brovana Nebu IH 15 mcg Q12HRT AUDELIA Administration Budesonide 0.5 mg 04/27/19 20:00 04/29/19 11:33 Pulmicort IH 0.5 mg Q12HRT AUDELIA Administration Dextrose 50 ml 04/27/19 11:30 D50w (25gm) Syringe IV Q30MIN PRN Hypoglycemia Protocol Ferrous Gluconate 325 mg 04/27/19 14:00 04/29/19 10:45 Fergon PO 325 mg TID AUDELIA Administration Glipizide 10 mg 04/28/19 11:00 04/29/19 08:35 Glucotrol PO 10 mg BIDDIAB AUDELIA Administration Azithromycin 500 mg/ Sodium 250 mls @ 250 mls/hr 04/28/19 10:00 04/29/19 10:57 Chloride IV 250 mls/hr Q24HR AUDELIA Administration Protocol Ceftriaxone Sodium 2 gm in 100 mls @ 200 mls/hr 04/29/19 10:00 04/29/19 10:46 Rocephin/Ns 2 Gm/100 Ml IV 200 mls/hr Q24HR AUDELIA Administration Protocol Insulin Human Lispro 0 unit 04/27/19 12:00 04/29/19 08:33 Humalog SUB-Q 4 unit ACHS AUDELIA Administration Protocol Methylprednisolone Sodium Succinate 60 mg 04/27/19 12:00 04/29/19 05:45 Solu-Medrol IV 60 mg Q6H AUDELIA Administration Montelukast Sodium 10 mg 04/27/19 22:00 04/28/19 22:10 Singulair PO 10 mg QHS AUDELIA Administration Nicotine 7 mg 04/28/19 10:00 04/29/19 10:45 Habitrol TD 7 mg QDAY AUDELIA Administration Ondansetron HCl 4 mg 04/27/19 11:18 Zofran IV Q8H PRN Nausea And Vomiting Pantoprazole Sodium 40 mg 04/29/19 10:00 04/29/19 10:46 Protonix PO 40 mg QDAY AUDELIA Administration Sodium Chloride 10 ml 04/27/19 22:00 04/29/19 10:46 Sodium Chloride Flush Syringe 10 Ml IV 10 ml BID AUDELIA Administration Sodium Chloride 10 ml 04/27/19 11:18 04/29/19 05:46 Sodium Chloride Flush Syringe 10 Ml IV 10 ml PRN PRN Administration LINE FLUSH Nutrition/Malnutrition Assess - Dietary Evaluation Nutrition/Malnutrition Findings: Nutrition Notes Start: 04/28/19 11:36 Freq: Status: Active Protocol: Document 04/28/19 11:36 LM (Rec: 04/28/19 11:46 LM [id number]) Nutrition Notes Need for Assessment generated from: MD Order,lining ironer,MST, Education Initial or Follow up Brief Note Current Diagnosis COPD,Hypertension Other Pertinent Diagnosis tobacco use Current Diet Cardiac diet Labs/Tests BG 267 Hgb A1C 5.8 Pertinent Medications Glucotrol Humalog Solumedrol Weight Status Obese Subjective/Other Information MD consult for DM diet education. HgbA1C indicates prediabetes. Pt stated she has been informed of DM by other MDs. Pt stated she has a good appetite and wants more food. Pt reports wt gain and UBW of 186 lb (84.5kg). Pt agreed to diet education. #1 Nutrition Diagnosis Food and nutrition-related knowledge deficit Etiology No prior knowledge of DM diet As Evidenced by Signs and Symptoms Pt needing DM diet education, BG 267, HgbA1C 5.8 Nutrition Intervention Change Diet Order: Consistent CHO/cardiac Teaching Recipient Patient Learning Readiness Good Teaching Methods Discussion,Handout Response to Teaching Verbalize understanding Education Handouts Provided Carbohydrate Counting for People with Diabetes Barriers to Learning Cognitive/Verbal RD phone number provided Yes Patient aware of follow up options Yes Revisit per MD consult or patient Sign Off request:
[2019-04-29] MEDS ORDERED: POLYETHYLENE GLYCOL 3350 17 GM POWDER PO PRN (13:04)
--- NOTE | 2019-04-29 13:44 | Consultation ---
HISTORY OF PRESENT ILLNESS: This is a 63-year-old female with end-stage COPD, chronic respiratory failure, on home O2, who comes in with shortness of breath. The patient reports that she was at baseline short of breath until when she began to notice increasing shortness of breath and fatigue. The patient came to the ER the day after, was found to have a right lower lobe pneumonia, was admitted for further therapy. She reports that she is feeling slightly better, still short of breath, still with wheezing. She denies any lightheadedness, dizziness or numbness. Does report cough with sputum production. She reports also some blood-tinged sputum. PAST MEDICAL HISTORY: COPD, hypertension, short-term memory loss. SOCIAL HISTORY: Lives at home. Smokes, she reports that she smokes 4-5 cigarettes a day, occasional alcohol and marijuana use, which she uses for her dementia. REVIEW OF SYSTEMS: No hemoptysis or hematemesis. No diarrhea, no constipation. No dysuria, hematuria, or polyuria. MEDICATIONS: List noted and reviewed. ALLERGIES: None. PAST SURGICAL HISTORY: As per list. FAMILY HISTORY: Positive for hypertension. PHYSICAL EXAMINATION: VITAL SIGNS: Temperature of 97.8, heart rate of 104, respiratory rate of 20, blood pressure 130/70. GENERAL: -[place]namese female, sitting up in bed. HEENT: Pupils reactive. Oral mucosa is moist. No JVD. No stridor. NECK: Supple. CARDIOVASCULAR: Normal S1, S2. LUNGS: Distant mild expiratory wheezes. ABDOMEN: Positive bowel sounds, soft. EXTREMITIES: Failed to reveal cyanosis, clubbing, or edema. NEUROLOGICAL: Alert and oriented x 3. Appears to be nonfocal. SKIN: Turgor was good. DIAGNOSTIC DATA: Chest x-ray, which was done on admission shows evidence of right lower lobe pneumonia. IMPRESSION: Female with acute on chronic respiratory failure, chronic obstructive pulmonary disease exacerbation, questionable hemoptysis, shortness of breath, dyspnea. The patient is started on cefuroxime and Zithromax. We will obtain a sputum culture. Monitor respiratory status closely. Continue on steroids. Monitor blood glucose closely. Continue supplemental oxygen. Monitor O2 sats closely, out of bed early mobilization. Incentive spirometry. Continue supportive care. JOB# [id number] BIJAL/NTS
[2019-04-29] MEDS ORDERED: LIP THERAPY VASELINE TP PRN (17:16)
[2019-04-29] MEDS: MONTELUKAST 10 MG TAB PO SCH (21:11)
[2019-04-30] MEDS: methylPREDNISolone Sod Succinate 125 MG/2 ML INJ IV SCH ×4 (01:38→17:26)
[2019-04-30] MEDS: IPRATROPIUM/ALBUTEROL SULFATE 3 ML AMPUL.NEB IH SCH ×3 (03:26→14:04)
[2019-04-30] MEDS: glipiZIDE 10 MG TAB PO SCH ×2 (08:31→17:27)
[2019-04-30] MEDS: INSULIN LISPRO 100 UNIT/ML SUB-Q SCH ×3 (08:31→16:30)
[2019-04-30] MEDS: AZITHROMYCIN 500 MG in SODIUM CHLORIDE 0.9% 250ML 250 ML IV SCH (09:27)
[2019-04-30] MEDS: FERROUS GLUCONATE 324 MG TAB PO SCH ×2 (09:27→17:27)
[2019-04-30] MEDS: cefTRIAXone/NS 2 GM/100 ML 2 GM/100 ML BAG IV SCH (09:27)
[2019-04-30] MEDS: NICOTINE 7 MG/24 HR PATCH TD SCH (09:27)
[2019-04-30] MEDS: APIXABAN 5 MG TAB PO SCH (09:28)
[2019-04-30] MEDS: BUDESONIDE 0.5 MG/2 ML NEBU IH SCH (10:22)
[2019-04-30] MEDS: ARFORMOTEROL 15 MCG/2 ML NEBU IH SCH (10:23)
--- NOTE | 2019-04-30 11:48 | Discharge Summary ---
Providers - Providers Date of Admission: 04/27/19 09:32 Attending physician: BUD JACKSON MD 04/27/19 11:18 Consult to Physician [CONS] Routine Comment: Consulting Provider: TERESO HULL Physician Instructions: Reason For Exam: copd 04/27/19 11:30 Consult to Dietitian/Nutrition [CONS] Routine Physician Instructions: Reason For Exam: Reason for Consult: Diet education 04/28/19 19:54 Consult to Physician [CONS] Routine Comment: Consulting Provider: NISHANT MENDEZ Physician Instructions: Reason For Exam: copd Primary care physician: JENNIFER AYALA MD Hospitalization Condition: Stable Hospital course: 63-year-old woman who presents to the hospital with shortness of breath. Past medical history; COPD, anxiety disorder, recurrent pneumonia, hypertension, diabetes, tobacco abuse, marijuana abuse. Vitals reviewed, patient is persistently tachycardic, temperature is 100.3 Chest x-ray : Patchy right basilar airspace disease worrisome for pneumonia. Labs reviewed white count to 16.9, UDS is positive for marijuana plan -she received antibiotics for community-acquired pneumonia Copd exacerbation; she received steroids, nebs, pulmonology consults, aggressive chest PT she was rx w/ nasal cannula during daytime and BiPAP and resting Tobacco abuse/dependence Smoking cessation counseling performed for 10 minutes, nicotine patches when necessary Preventative health counseling performed for 17 minutes monitor BP Diagnosis -copd exacerbation, w hx of intubation in the past Acute on chronic hypoxic respiratory failure -R basilar pna, bacterial, likely gram pos sepsis -Tobacco abuse/dependence -marijuana abuse/dependence htn dvt ppx- lovenox Disposition: TO HOME OR SELFCARE Time spent for discharge: 33 mins Core Measure Documentation - Palliative Care Palliative Care/ Comfort Measures: Not Applicable - Core Measures Any of the following diagnoses?: none Exam - Constitutional Vitals: Temp Pulse Resp BP Pulse Ox 98.0 F 83 20 146/77 93 04/30/19 06:20 04/30/19 06:20 04/30/19 06:20 04/30/19 06:20 04/30/19 06:20 General appearance: Present: no acute distress, well-nourished - EENT Eyes: Present: PERRL ENT: hearing intact, clear oral mucosa - Neck Neck: Present: supple, normal ROM - Respiratory Respiratory effort: normal Respiratory: bilateral: CTA - Cardiovascular Heart Sounds: Present: S1 & S2. Absent: rub, click - Extremities Extremities: pulses symmetrical, No edema Peripheral Pulses: within normal limits - Abdominal General gastrointestinal: Present: soft, non-tender, non-distended, normal bowel sounds Female genitourinary: Present: normal - Integumentary Integumentary: Present: clear, warm, dry - Musculoskeletal Musculoskeletal: gait normal, strength equal bilaterally - Psychiatric Psychiatric: appropriate mood/affect, intact judgment & insight - Neurologic Neurologic: CNII-XII intact, moves all extremities Plan Follow up with: JENNIFER AYALA MD [Primary Care Provider] - 7 Days Prescriptions: Amoxicillin/Potassium Clav [Augmentin 875-125 Tablet] 1 each PO BID #14 tablet predniSONE [Deltasone] 10 mg PO .TAPER #48 tab Nicotine [Habitrol] 7 mg TD QDAY #30 patch ALBUTEROL Inhaler (OR & NICU) [ProAir HFA Inhaler] 2 puff IH QID PRN #1 PRN Reason: Shortness Of Breath Tiotropium Parker [Spiriva Respimat] 1 each IH DAILY #1 mist.inhal
[2019-04-30] MEDS: PANTOPRAZOLE 40 MG TAB PO SCH (12:24)
--- NOTE | 2019-04-30 14:00 | XRay Report ---
CHEST 2 VIEWS INDICATION: pneumonia. COMPARISON: 04/27/2019 FINDINGS: Support devices: None. Heart: Within normal limits. Lungs/pleura: Improving aeration in the right lung base where there is patchy airspace disease. Minim al atelectasis again seen in the left mid lung. No pneumothorax. Additional findings: None. IMPRESSION: 1. Improved exam. Signer Name: Elias Barahona MD Signed: 04/30/2019 1:56 PM Workstation Name: [id number]
[2019-04-30 18:32] VITALS: BP 144/71
== END 2019-04-30 19:00 | disposition home or self-care (01) | DRG 871 ==
LOC: ED 06:58 → IMCU 09:32 → CC1 12:19 → 3A 04-28 21:19
PROVIDERS: ADMIT Internal Medicine; ATTEND Internal Medicine
PROC: 4A033R1 Measurement of Arterial Saturation, Peripheral, Percutaneous Approach (ICD-10-PCS; principal; 2019-04-27)
PROC: 5A09357 Assistance with Respiratory Ventilation, Less than 24 Consecutive Hours, Continuous Positive Airway Pressure (ICD-10-PCS; 2019-04-27)
PROC: 5A09357 Assistance with Respiratory Ventilation, Less than 24 Consecutive Hours, Continuous Positive Airway Pressure (ICD-10-PCS; 2019-04-28)
PROC: 5A09357 Assistance with Respiratory Ventilation, Less than 24 Consecutive Hours, Continuous Positive Airway Pressure (ICD-10-PCS; 2019-04-30)
DX: A41.9 Sepsis, unspecified organism (principal); J18.9 Pneumonia, unspecified organism; J96.21 Acute and chronic respiratory failure with hypoxia; J96.22 Acute and chronic respiratory failure with hypercapnia; J44.1 Chronic obstructive pulmonary disease with (acute) exacerbation; J44.0 Chronic obstructive pulmonary disease with (acute) lower respiratory infection; F41.9 Anxiety disorder, unspecified; E11.9 Type 2 diabetes mellitus without complications; F12.10 Cannabis abuse, uncomplicated; F17.210 Nicotine dependence, cigarettes, uncomplicated; I11.0 Hypertensive heart disease with heart failure; I50.9 Heart failure, unspecified; K21.9 Gastro-esophageal reflux disease without esophagitis; M19.90 Unspecified osteoarthritis, unspecified site; Z71.6 Tobacco abuse counseling; Z79.899 Other long term (current) drug therapy
CPT/HCPCS: 36415; 36600; 71045; 71046; 80048; 80076; 80307; 81001; 82140; 82550; 82553; 82803; 82962; 83036; 83735; 84484; 85007; 85025; 85610; 85730; 87040; 87086; 93005; 93010; 94640; 94644; 94660; 94760; 99292; G0378; J0456; J0692; J0696; J1650; J1815; J2930; J3370; J3475; J7030; J7040; J7050